=== PATIENT | female | born 1990 | race Caucasian/White ===

== ENCOUNTER → 2018-04-17 15:55 | Outpatient (CLI) | payer OTHER, SELFPAY ==
[2018-04-17 17:37] LABS: Hematocrit 36.4 % (37-47); Hemoglobin 11.5 g/dl (12.0-15.0); Mean Corp Hgb Conc 31.6 g/gl (32-36); Mean Corpuscular Hgb 28.7 pg (27.0-32.0); Mean Corpuscular Volume 90.8 fL (81-99); Mean Platelet Vol. 10.9 fl (6.2-12.0); Platelet Count 241 K/mm3 (150-450); RBC Distribution Width CV 13.3 % (11.6-14.6); RBC Distribution Width SD 43.6 fl (35.1-43.9); Red Blood Count 4.01 M/mm3 (4.2-5.4); White Blood Count 8.4 K/mm3 (4.4-11.0)
[2018-04-17 17:38] LABS: Scan Indicated on CBC? Y/N NO
[2018-04-17 17:39] LABS: Protein, Urine (Random) 6.9 mg/dL (<11.9)
[2018-04-17 17:41] LABS: ALB/GLOB Ratio 0.7 RATIO (0.9-2.4); AST(SGOT) 21 U/L (15-37); Alanine Aminotransfer ALT/SGPT 25 U/L (13-56); Albumin, Serum 3.1 g/dL (3.2-5.0); Alkaline Phosphatase 75 U/L (45-117); Anion Gap 8 (5-15); BUN 9 mg/dL (7-18); BUN/Creat Ratio 15.3 RATIO (10-20); Chloride 106 mmol/L (98-107); Creatinine, Serum 0.59 mg/dL (0.55-1.02); EST Glomerular Filtration Rate 128 mL/min (>60); Est Glom Filt Rate - Afr Amer 155 mL/min (>60); Globulin 4.4 g/dL (2.2-4.2); Glucose 89 mg/dL (74-106); Potassium 3.8 mmol/L (3.5-5.1); Protein, Total 7.5 g/dL (6.4-8.2); Sodium Level 140 mmol/L (136-145); Uric Acid 3.4 mg/dL (2.6-6.0)
== END ==
PROVIDERS: Visit Provider Obstetrics & Gynecology
DX: O16.2 Unspecified maternal hypertension, second trimester (principal); Z3A.00 Weeks of gestation of pregnancy not specified
CPT/HCPCS: 36415; 80053; 82570; 84156; 84550; 85027; 86850; 86900

== ENCOUNTER 2018-04-18 08:50 | Inpatient (IN) | payer OTHER, SELFPAY ==
[2018-04-18] MEDS: 0.9% Saline Lock 10 ML Syringe IV ×2 (09:42→20:05)
[2018-04-18 09:43] VITALS: BMI 26.4
[2018-04-18 09:57] VITALS: BMI 26.4
[2018-04-18] MEDS: miSOPROStol 200 MCG Tablet 400 MCG VAGINAL ×2 (10:15→22:36)
[2018-04-18] MEDS: miSOPROStol 100 MCG TABLET 400 MCG PO ×2 (14:25→18:33)
--- NOTE | 2018-04-18 17:44 | PCM.PN.BLA ---
Progress Note LABOR PROGRESS NOTE Has mild intermittent contractions. +brown to red discharge. No complaints. AVSS GEN - NAD, AAO x 3 TOCO - irritability A/P:27yo G1 @ 23 4/7wga with IUFD, hydrops with cystic hygroma -s/p cytotec x 2 - will continue -Pain management prn -Maternal status reassuring
[2018-04-18] MEDS: Acetaminophen 325 MG Tablet PO (18:38)
[2018-04-18] MEDS: Nalbuphine 10 MG/ML Ampul IV (20:05)
[2018-04-18] MEDS: Ondansetron 4 MG/2 ML Vial IV (20:06)
--- NOTE | 2018-04-19 | PLAC_PTH ---
PATIENT: SAVI SHELL LOC: [facility] U#:[id number] AGE/SX: 27/F ROOM: WP021 RE04/18/[address]: Dr. Kenzie Shukla MD : 1990 BED: 1 DIS: 04/19/2018 SPEC #: [id number] RECD: 04/19/18 11:10 STATUS: MIKE HUTCHINSJose #: [id number] LESA: 04/19/18 00:[address]: Kenzie Zamora DEPT: SURGICAL PATHOLOGY RECD BY: Hossein Sheppard ENTERED: 04/20/18 11:55 SP TYPE: PLACENTA OTHR DR: Dr. Chelsea Gutiérrez DO Tissues: Placenta, NOS Procedures: Surgery Specimen Level V HEADER OPERATION: Vaginal delivery PRE-OP DIAGNOSIS: 23 5/7wga, IUFD, , hydrops with cystic hygroma TISSUE SUBMITTED: Placenta MICROSCOPIC DIAGNOSIS Placenta: Placental disc ? immature placenta (143 gm). - A few of the villi with hydropic changes. - Focal area of infarction (1 cm in greatest dimension). Membranes ? mild acute chorioamnionitis. - Pigment-laden macrophages consistent with meconium staining. Umbilical cord - three blood vessels and no pathologic diagnosis. SJ:sheila 04/21/18 MICROSCOPIC DESCRIPTION Slides are reviewed. GROSS DESCRIPTION SPECIMEN: PLACENTA / CLINICAL INFORMATION: A. Weight: Not applicable B. Gestational Age: 23 weeks C. Sex: Male PLACENTAL WEIGHT (POST FIXATION): 143 gm PLACENTAL DIMENSIONS: 11 x 9 x 2 cm PLACENTAL SHAPE: Usual ovoid PLACENTAL WEIGHT FOR GESTATIONAL AGE: <10th percentile MEMBRANES - Present A. Insertion: Marginal B. Site of rupture from edge: At edge of placental disc C. Color of membrane: August-rojas D. Abnormalities: None UMBILICAL CORD - Present A. Color: August-rojas B. Insertion: Paracentral C. Length: 15 cm D. Diameter: 0.5 cm E. Number of vessels: Three F. Abnormalities: None A clamp is noted at the end of the umbilical cord. PLACENTAL DISC - Present A. Color of surface: August-rojas B. surface abnormalities: The surface shows a few submembranous blood clots. C. Maternal cotyledons: Intact with minimal tears D. Attached retro placental clot: No clot E. Cut surface: Applewood-red and spongy F. Lesions: Sections reveal a august, indurated area measuring 1 cm in greatest dimension. G. Separate clot: Absent SECTIONS SUBMITTED: 1. Membrane roll, umbilical cord, end is inked black 2. Body of the placenta, including and maternal surface, lesion. 3. Body of the placenta, including and maternal surface. 4. Body of the placenta, including and maternal surface SJ:rg 04/20/18 TC:2 CPT: 17859
--- NOTE | 2018-04-19 00:22 | PCM.PN.BLA ---
Progress Note LABOR PROGRESS NOTE Nausea resolved. Prefers to continue cytotec per vagina. Has mild cramping. AVSS GEN - NAD, AAO x 3 TOCO - irritability A/P:27 yo G1 @ 23 4/7wga, IUFD with hydrops and cystic hygroma -Will continue Cytotec -Maternal status reassuring
[2018-04-19] MEDS: Nalbuphine 10 MG/ML Ampul IV (01:14)
[2018-04-19] MEDS: 0.9% Saline Lock 10 ML Syringe IV (01:15)
[2018-04-19] MEDS: miSOPROStol 200 MCG Tablet 400 MCG VAGINAL ×2 (02:38→04:44)
[2018-04-19] MEDS: proMETHazine 25 MG/ML Syringe IV (03:16)
[2018-04-19] MEDS: Oxytocin 30 units/NS 500 ml 30 UNITS/500 ML IV.SOLN 334 UNITS IV (04:47)
--- NOTE | 2018-04-19 04:55 | PCM.OB.VAG ---
- Problem List (1) 23 weeks gestation of Status: Acute (2) demise > 22 weeks, delivered, current hospitalization Status: Acute Comment: hydrops with cystic hygroma Vaginal Delivery Maternal Presentation: Medically Indicated Induction Method of Induction: Cytotec Medical Reason for Induction: demise Amniotic Membrane Rupture Type: Spontaneous Rupture of Membrane time: 0326h Amniotic Fluid Description: Clear Final EUGENIA: 08/11/18 Gestational age: 23 Weeks and 5 Days Date of Procedure: 04/19/18 Pre-Operative Diagnosis: 23 5/7wga, IUFD, hydrops with cystic hygroma Post-Operative Diagnosis: 23 5/7wga, IUFD, hydrops with cystic hygroma Surgery/ Procedure Performed: Spontaneous Vaginal Delivery Type of Anesthesia: None Description of Procedure: Patient pushed to deliver fetus in breech presentation over and intact perineum. The cord was doubly clamped and cut and the was swaddled and held by patient. The placenta delivered spontaneously and appeared intact on inspection. An intravaginal exam retrieved few small clots. Cytotec 400mcg was placed rectally and pitocin IV started. Findings: Male with no movement or respiratory effort consistent with demise. The infant had generalized edema, but otherwise appeared normal in anatomy. Presentation: Footling Breech Placental Delivery Description: Spontaneous Placenta Disposition: [facility] Cord Vessel Description: 3 Vessels Cord Entanglement: None Estimated Blood Loss: 50 mL Infant A gender: Male (1 minute): 0 (5 minute): 0 Episiotomy Description: None Medications given after delivery: IV Pitocin, - - cytotec Complications: None
--- NOTE | 2018-04-19 05:13 | DCINST_ITS ---
Discharge Diet: No Restrictions Discharge Activity: Return to Normal Activity, May Shower May resume sexual activity in: 4-6 weeks Call your doctor if you observe: Fever of 101 or Higher, Inability to urinate, Inability to have a bowel movement, Using more than one pad per hour, Shortness of breath, Chest pain, Calf discomfort, Uncontrolled pain Additional Instructions: If you experience any of the following, contact your healthcare provider. * Bleeding that soaks a pad every hour for 2 hours * Fever 100.4 or higher * Unrelieved incision or abdominal pain * Swelling, redness, discharge or bleeding from your incision or episiotomy site * Your incision begins to separate * Problems urinating (including inability to urinate or burning while urinating) . * Visual changes * Severe headache * Flu-like symptoms * Pain or redness in one of both of your breasts * Pain, warmth, tenderness or swelling in your legs, especially the calf area * Frequent nausea and vomiting * Symptoms of depression or anxiety If you experience any of the following, call 911 or go to the nearest Emergency Room. * Chest pain * Problems breathing * Seizure activity * Partial or complete paralysis of a body part, slurred speech, weakness or drooping of the face, or a sudden inability to walk or hold your balance Allergies/Adverse Reactions: Allergies No Known Allergies Allergy (Verified 04/18/18 09:59) Medications to take at Discharge Vits [Prenatabs FA ] 1 tablet PO DAILY 04/18/18 Ibuprofen 600 mg PO TID PRN #30 tab 04/19/18 The following prescriptions were given: Ibuprofen 600 mg PO TID PRN #30 tab PRN Reason: Pain Please Follow Up With: Kenzie Villatoro MD When: 1-2 weeks Primary Care Physician: Chelsea Gutiérrez DO [Primary Care Provider] - Test Results: Test results from this visit will be discussed in further detail at your follow- up appointment, if applicable.
[2018-04-19] MEDS: Oxytocin 30 units/NS 500 ml 30 UNITS/500 ML IV.SOLN 167 UNITS IV (05:17)
[2018-04-19 08:00] VITALS: BP 102/56; PULSE 81; RESP 18; TEMP 36.8
[2018-04-19 11:30] VITALS: BP 120/55; PULSE 81; RESP 20; TEMP 36.4
[2018-04-22 10:26] LABS: Pathology Specimen OB SEE PATHOLOGY REPORT
== END 2018-04-19 12:00 | disposition home or self-care (01) | DRG 775 ==
LOC: WP 08:55
PROVIDERS: Admitting Provider Obstetrics & Gynecology; Family Provider Family Medicine; PCP Family Medicine; Visit Provider Obstetrics & Gynecology
DX: O36.4XX0 Maternal care for intrauterine death, not applicable or unspecified (principal); O35.8XX0 Maternal care for other (suspected) fetal abnormality and damage, not applicable or unspecified; D18.1 Lymphangioma, any site; O32.8XX0 Maternal care for other malpresentation of fetus, not applicable or unspecified; Z3A.23 23 weeks gestation of pregnancy; Z37.1 Single stillbirth
CPT/HCPCS: 59050; 86850; 86900; 88307; 99218; J7120; A4216; G0378; J2405

== ENCOUNTER → 2019-03-31 09:39 | Outpatient (CLI) | payer OTHER, SELFPAY ==
[2018-12-08 16:00] VITALS: BMI 26.2
[2019-03-31 10:05] LABS: Absolute Lymphocyte Count 1.16 X10^3/ul (0.83-4.51); Absolute Neutrophil Count 2.9 X10^3/uL (2.0-7.7); Basophil# 0.01 X10^3/uL; Basophil% 0.2 % (0-1); Eosinophil# 0.03 X10^3/uL; Eosinophils% 0.7 % (0-5); Hematocrit 36.8 % (37-47); Hemoglobin 11.4 g/dl (12.0-15.0); Lymphocyte # 1.16 X10^3/ul (4.0); Lymphocyte % 26.7 % (19-41); Mean Corpuscular Hgb 25.2 pg (27.0-32.0); Mean Corpuscular Volume 81.4 fL (81-99); Mean Platelet Vol. 10.9 fl (6.2-12.0); Monocyte# 0.27 X10^3/uL; Monocyte% 6.2 % (0-10); Neutrophil # 2.88 X10^3/uL (2.7-7.7); Neutrophil % 66.2 % (47-70); Platelet Count 224 K/mm3 (150-450); RBC Distribution Width CV 14.8 % (11.6-14.6); RBC Distribution Width SD 43.8 fl (35.1-43.9); Red Blood Count 4.52 M/mm3 (4.2-5.4); White Blood Count 4.4 K/mm3 (4.4-11.0)
[2019-03-31 10:09] LABS: POSITIVE COUNT NO; POSITIVE DIFFERENTIAL NO; POSITIVE MORPHOLOGY NO
[2019-03-31 10:26] LABS: AST(SGOT) 14 U/L (15-37); Alanine Aminotransfer ALT/SGPT 22 U/L (13-56); Albumin, Serum 3.8 g/dL (3.2-5.0); Alkaline Phosphatase 77 U/L (45-117); Anion Gap 5 (5-15); BUN 10 mg/dL (7-18); BUN/Creat Ratio 13.6 RATIO (10-20); Calcium,Total 9.1 mg/dL (8.5-10.1); Chloride 105 mmol/L (98-107); Creatinine, Serum 0.74 mg/dL (0.55-1.02); EST Glomerular Filtration Rate 98 mL/min (>60); Est Glom Filt Rate - Afr Amer 119 mL/min (>60); Globulin 3.8 g/dL (2.2-4.2); Glucose 94 mg/dL (74-106); Lipase 96 U/L (73-393); Potassium 3.7 mmol/L (3.5-5.1); Protein, Total 7.6 g/dL (6.4-8.2); Sodium Level 139 mmol/L (136-145)
== END ==
PROVIDERS: Family Provider Family Medicine; PCP Family Medicine; Visit Provider Family Medicine
DX: R10.9 Unspecified abdominal pain (principal); R19.7 Diarrhea, unspecified
CPT/HCPCS: 36415; 80053; 83690; 85025

== ENCOUNTER → 2019-04-02 11:05 | Outpatient (CLI) | payer OTHER, SELFPAY ==
[2018-12-08 16:00] VITALS: BMI 26.2
--- NOTE | 2019-04-02 11:07 | CT_ITS ---
STUDY: CT ABDOMEN AND PELVIS WITH CONTRAST REASON FOR EXAM: Female, 28 years old. Abdominal pain with bloating and diarrhea. RADIATION DOSAGE (If Supplied By Facility): CTDIvol = ( 8.72 ) mGy, DLP = ( 539.83 ) mGycm TECHNIQUE: Transaxial images were obtained from the dome of the diaphragm to the symphysis pubis with oral contrast. 100 IV/Oral Isovue 300 was administered. Sagittal and coronal images were reconstructed. Individualized dose optimization techniques were used for this CT. COMPARISON: None. FINDINGS: The visualized lung bases are unremarkable. The visualized portions of the heart are within normal limits. Normal liver. Normal gallbladder and extrahepatic biliary system. Normal spleen. Normal pancreas. Normal bilateral adrenal glands. Normal right kidney. Normal left kidney. Normal visualized stomach. Normal small intestine. There is evidence of colitis involving the distal transverse colon as well as the splenic flexure down to the mid descending colon. The appendix is visualized and appears normal. Normal abdominal aorta. Normal inferior vena cava. Normal retroperitoneum. Normal urinary bladder. Thickened endometrium measuring 2 cm. Normal abdominal wall. Normal osseous structures. CT/Abdomen/Pelvis WITH Contrast IMPRESSION: Findings suggestive of colitis involving the distal transverse colon, splenic flexure and mid descending colon. Electronically Signed: Tde Bloom, at 12:16 EDT , Service support ,
== END ==
PROVIDERS: Family Provider Family Medicine; PCP Family Medicine; Referring Provider Family Medicine; Visit Provider Family Medicine
DX: R19.7 Diarrhea, unspecified (principal); R10.9 Unspecified abdominal pain; R14.0 Abdominal distension (gaseous)
CPT/HCPCS: 74177; Q9967

== ENCOUNTER → 2019-04-05 07:59 | Outpatient (CLI) | payer OTHER, SELFPAY ==
[2018-12-08 16:00] VITALS: BMI 26.2
--- NOTE | 2019-04-05 08:05 | US_ITS ---
STUDY: ULTRASOUND OF THE FEMALE PELVIS - COMPLETE REASON FOR EXAM: Female, 28 years old. Thickened endometrial echoes on CT scan. LMP: 03/10/2019 TECHNIQUE: Transabdominal and Transvaginal TECHNICAL QUALITY: Adequate. COMPARISON: Scan 04/02/2019. FINDINGS: The uterus is anteverted and is in a midline position. The uterus measures 7.5 x 5.2 x 4.3 cm. Normal uterine cervix. The endometrium measures 16 mm in thickness, and is hyperechoic. There is no demonstrated endometrial mass. There is no demonstrated myometrial mass. I.U.D. - The patient does not have an I.U.D. The right ovary is visualized. The right ovary measures 2.4 x 2.2 x 2.0 cm. There is no right ovarian cyst or ovarian mass. There is no visualized right adnexal mass or complex lesion. There is normal arterial and normal venous vascularity. The left ovary is visualized. The left ovary measures 3.6 x 3.6 x 2.8 cm. There is a 1.7 cm cyst. There is no visualized left adnexal mass or complex lesion. There is normal arterial and normal venous vascularity. There is trace fluid in the cul-de-sac. The pre void volume of the bladder was 281 ml. US/Pelvic (Non ) IMPRESSION: Endometrial echoes are slightly thickened but otherwise normal and homogeneous. Recommend follow-up in one or 2 menstrual periods. No other significant finding. Electronically Signed: Aron Gilbert MD at 16:54 EDT , Service support ,
--- NOTE | 2019-04-05 08:05 | US_ITS ---
STUDY: ULTRASOUND OF THE FEMALE PELVIS - COMPLETE REASON FOR EXAM: Female, 28 years old. Thickened endometrial echoes on CT scan. LMP: 03/10/2019 TECHNIQUE: Transabdominal and Transvaginal TECHNICAL QUALITY: Adequate. COMPARISON: Scan 04/02/2019. FINDINGS: The uterus is anteverted and is in a midline position. The uterus measures 7.5 x 5.2 x 4.3 cm. Normal uterine cervix. The endometrium measures 16 mm in thickness, and is hyperechoic. There is no demonstrated endometrial mass. There is no demonstrated myometrial mass. I.U.D. - The patient does not have an I.U.D. The right ovary is visualized. The right ovary measures 2.4 x 2.2 x 2.0 cm. There is no right ovarian cyst or ovarian mass. There is no visualized right adnexal mass or complex lesion. There is normal arterial and normal venous vascularity. The left ovary is visualized. The left ovary measures 3.6 x 3.6 x 2.8 cm. There is a 1.7 cm cyst. There is no visualized left adnexal mass or complex lesion. There is normal arterial and normal venous vascularity. There is trace fluid in the cul-de-sac. The pre void volume of the bladder was 281 ml. US/Transvaginal Non- IMPRESSION: Endometrial echoes are slightly thickened but otherwise normal and homogeneous. Recommend follow-up in one or 2 menstrual periods. No other significant finding. Electronically Signed: Aron Gilbert MD at 16:54 EDT , Service support ,
== END ==
PROVIDERS: Family Provider Family Medicine; PCP Family Medicine; Referring Provider Family Medicine; Visit Provider Family Medicine
DX: R10.2 Pelvic and perineal pain (principal); N92.3 Ovulation bleeding
CPT/HCPCS: 76830; 76856

== ENCOUNTER → 2019-04-16 08:02 | Outpatient (CLI) | payer OTHER, SELFPAY ==
[2018-12-08 16:00] VITALS: BMI 26.2
== END ==
PROVIDERS: Family Provider Family Medicine; PCP Family Medicine; Visit Provider Family Medicine
DX: R19.7 Diarrhea, unspecified (principal)
CPT/HCPCS: 83630; 87177; 87209; 87493; 87506

== ENCOUNTER 2019-04-26 09:42 | Day surgery (SDC) | payer OTHER, SELFPAY ==
[2019-04-22 09:52] VITALS: BMI 26.2
[2019-04-26] VITALS (7 sets, daily range): BP systolic 85–106; BP diastolic 38–59; PULSE 68–92; RESP 14–16; TEMP 36.3–37.4; O2SAT 99–100; BMI 25.1
--- NOTE | 2019-04-26 | COLBX_PTH ---
PATIENT: SAVI SHELL LOC: EN U#:[id number] AGE/SX: 28/F ROOM: RE04/26/[address]: Dr. Laly Newton MD : 1990 BED: DIS: 04/26/2019 SPEC #: [id number] RECD: 04/26/19 13:31 STATUS: MIKE SHIRA #: [id number] LESA: 04/26/19 00:[address]: Laly Newton DEPT: SURGICAL PATHOLOGY RECD BY: Temo Shipman ENTERED: 04/26/19 13:32 SP TYPE: COLON BX IRINA DR: DO Chelsea Christine Tissues: A - Ileum, NOS B - Transverse colon C - Descending colon D - Rectum, NOS Procedures: Surgery Specimen Level IV HEADER OPERATION: Colonoscopy (MAC) PRE-OP DIAGNOSIS: Abdomen pressure, Abnormal CT scan TISSUE SUBMITTED: A - Terminal ileum biopsy, B - Transverse random biopsy, C - Proximal descending random biopsy, D - Rectum small ulceration biopsy MICROSCOPIC DIAGNOSIS A. Terminal ileum, biopsy: No pathologic diagnosis. B. Transverse colon, biopsy: No pathologic diagnosis. C. Proximal descending colon, biopsy: No pathologic diagnosis. D. Rectal ulcer, biopsy: Recent mucosal hemorrhage. No evidence of colitis. AM:janis 04/27/19 MICROSCOPIC DESCRIPTION Slides are reviewed. GROSS DESCRIPTION A - Received in fixative is one container labeled with the patient's name and designated terminal ileum biopsy. The specimen consists of one irregular fragment of light august soft tissue that measures 0.3 x 0.3 x 0.1 cm. The specimen is totally submitted in one cassette. B - Received in fixative is one container labeled with the patient's name and designated transverse random biopsy. The specimen consists of one irregular fragment of light august soft tissue that measures 0.3 x 0.3 x 0.1 cm. The specimen is totally submitted in one cassette. C - Received in fixative is one container labeled with the patient's name and designated proximal descending random biopsy. The specimen consists of one irregular fragment of light august soft tissue that measures 0.3 x 0.2 x 0.1 cm. The specimen is totally submitted in one cassette. D - Received in fixative is one container labeled with the patient's name and designated rectum small ulceration biopsy. The specimen consists of one irregular fragment of light august soft tissue that measures 0.7 x 0.3 x 0.1 cm. The specimen is totally submitted in one cassette. / SJ:sheila 04/26/19 TC: 5 CPT: 01197 x4
--- NOTE | 2019-04-26 10:18 | HP.PCM_ITS ---
History and Physical Date of Admission: 04/26/19 Intake Vital Signs 04/22/19 Body Mass Index (BMI) 26.2 04/22/19 Height 5 ft 4 in 04/22/19 Weight: 150 lb 04/22/19 Body Mass Index (BMI) 25.7 04/22/19 Blood Pressure 121/70 H 04/22/19 Blood Pressure Location Lt brachial 04/22/19 Respiratory Rate 16 Intake Visit Reasons: C-Scope Diarrhea Chief Complaint: HEADACHE, EARACHE Transport Coordinator Required: No Is patient in pain?: No Allergies No Known Allergies Allergy (Verified 04/23/19 11:25) Medications NK 04/22/19 [History Confirmed 04/23/19] [facility] Medical History TMJ dysfunction (Acute) Tension type headache (Acute) (spontaneous vaginal delivery) (Acute) 23 weeks gestation of (Acute) demise > 22 weeks, delivered, current hospitalization (Acute) Surgical History History of hip surgery (Acute) Hx of tonsillectomy (Acute) Family History Other MVP (mitral valve prolapse) Melanoma Myopathy Social History (Updated 04/23/19 @ 11:52 by Laly Newton MD) Smoking Status: Never smoker alcohol intake: never HPI HPI HPI: SAVI SHELL, is a 28 F who presents to the office today for HPI HPI Surgical H&P: Yes HPI: SAVI SHELL, is a 28 F who presents to the office today for multiple soft bowel movements, abdominal pain/pressure. Patient states that around 29 March she started having abdominal pain/pressure denies any sick contacts or any recent travel. She was having increased number of soft bowel movements denies any watery diarrhea. Patient did her see her PCP who gave her Cipro Flagyl for 10 days. Patient states she did not notice a difference with this. Patient also underwent a CAT scan abdomen pelvis prior to getting the antibiotics which should question colitis of the distal transverse colon/splenic flexure/proximal ascending colon. Patient states that the pressure is improved this week currently she rates pain/pressure a 2/10 prior it was always a 4/10 can go up to an 8/10. Patient still admits to about 7 soft bowel movements daily. Denies any history of any similar episodes previously. Patient denies having history of colonoscopies, denies family history of colon cancer or UC or Crohn's disease. Patient also had stool studies including fecal leukoesterase, enteric pathogens, C. difficile which were all negative ROS General General: Yes fatigue; no weight change Gastro Gastrointestinal: Yes abdominal pain, Yes nausea or vomiting (no vomiting), No diarrhea (pt has multiple stools but soft no watery), No constipation, No blood in stool, Yes acid reflux, Yes hemorrhoids, No ulcers, No gallbladder problem, No black,tarry stools Exam Const General: cooperative, comfortable, no acute distress Resp Effort & Inspection: normal respiratory effort Cardio Rate: regular rate GI Inspection: non-distended, no incisions Palpation: soft, no guarding, tender (Mild epigastric left upper quadrant, no peritoneal signs) Assessment & Plan Problems 1. Abnormal CT scan, colon R93.3 2. Abdominal pressure R10.9 Plan I have discussed the above with the patient. I have offered the patient colonoscopy for evaluation. We will also plan to do random biopsies of the distal transverse and proximal descending colon. I have explained the risks/benefits of the procedure and described the procedure. I have discussed the risks with the patient, including but not limited to: infection, bleeding, perforation of the GI tract requiring emergency surgery, inability to complete the procedure, injury to any internal organs, complications of anesthesia, etc. - the patient understands and agrees to proceed. I have answered all the patient's questions to the patient's satisfaction and the patient has no further questions. The patient has been given instructions for the colon cleansing preparation. 1 day of clears, MiraLAX Dulcolax split prep Laly Newton M.D. Pager: [phone] [facility] [address] [place] [address], [facility], [address] [place] [address] Office: [phone] Orders Orders: Colonoscopy 04/22/19 R10.9, R93.3 Plan Detail Follow Up We will schedule colonoscopy Coding Level of Care Code Off vis,new,level [address] scan, colon R93.3 Abdominal pressure R10.9 07/26/19 1153 <Electronically signed by Laly Porras am, MD> Date _ Laly Newton MD
--- NOTE | 2019-04-26 11:04 | OP.ENDO_ITS ---
04/26/2019 Chelsea Gutiérrez Re : Colonoscopy procedure for Dorothy Negronr Brock This procedure was performed on Friday, April 26, 2019. My impressions and recommendations are as follows: Impressions : - Mucosal ulceration. Biopsied. - Biopsies were taken with a cold forceps for histology in the proximal descending colon and in the transverse colon. - Biopsies were taken with a cold forceps for histology in the terminal ileum. Recommendations : - Discharge patient to home. - Resume previous diet. - Continue present medications. - Repeat colonoscopy at age 48 for screening purposes. - Await pathology results. My findings are described in the full procedure note, which is enclosed. If I can be of further assistance, please feel free to contact me at Doctor phone number(s): , Work: . Sincerely, MD Laly Knapp MD 04/26/2019 11:04:27 AM This report has been signed electronically.
[2019-04-26 14:37] LABS: Internal QC Validated? YES +Cl - CLEAR BKGD; Pregnancy, Urine Positive Negative
== END 2019-04-26 12:25 | disposition home or self-care (01) ==
LOC: EN 09:43 → AC 09:43
PROVIDERS: Anesthesiology; Family Provider Family Medicine; PCP Family Medicine; Referring Provider Family Medicine; Visit Provider Surgery
PROC: 0DJD8ZZ Inspection of Lower Intestinal Tract, Via Natural or Artificial Opening Endoscopic (ICD-10-PCS; CPT 45378; principal; 2019-04-26 10:40)
DX: K63.3 Ulcer of intestine (principal); R10.13 Epigastric pain; R19.7 Diarrhea, unspecified; R11.0 Nausea; R93.3 Abnormal findings on diagnostic imaging of other parts of digestive tract
CPT/HCPCS: 45380; 81025; 88305; J7120

== ENCOUNTER → 2019-04-27 08:51 | Outpatient (CLI) | payer OTHER, SELFPAY ==
[2019-04-26 10:02] VITALS: BMI 25.1
[2019-04-27 12:07] LABS: hCG Titer Quant., Serum 88 mIU/mL (1-3)
== END ==
PROVIDERS: Visit Provider Obstetrics & Gynecology
DX: N91.2 Amenorrhea, unspecified (principal)
CPT/HCPCS: 36415; 84702

== ENCOUNTER → 2019-04-29 08:36 | Outpatient (CLI) | payer OTHER, SELFPAY ==
[2019-04-26 10:02] VITALS: BMI 25.1
[2019-04-29 09:14] LABS: hCG Titer Quant., Serum 100 mIU/mL (1-3)
== END ==
PROVIDERS: Visit Provider Obstetrics & Gynecology
DX: N91.2 Amenorrhea, unspecified (principal)
CPT/HCPCS: 36415; 84702

== ENCOUNTER → 2019-04-29 16:26 | Outpatient (CLI) | payer OTHER, SELFPAY ==
[2019-04-26 10:02] VITALS: BMI 25.1
[2019-05-01 09:46] LABS: hCG Titer Quant., Serum 101 mIU/mL (1-3)
== END ==
PROVIDERS: Family Provider Family Medicine; PCP Family Medicine; Referring Provider Obstetrics & Gynecology; Visit Provider Obstetrics & Gynecology
DX: Z34.80 Encounter for supervision of other normal pregnancy, unspecified trimester (principal)
CPT/HCPCS: 36415; 84144; 84702

== ENCOUNTER → 2019-05-07 11:25 | Outpatient (CLI) | payer OTHER, SELFPAY ==
[2019-04-26 10:02] VITALS: BMI 25.1
[2019-05-07 12:43] LABS: hCG Titer Quant., Serum 2 mIU/mL (1-3)
== END ==
PROVIDERS: Family Provider Family Medicine; PCP Family Medicine; Visit Provider Obstetrics & Gynecology
DX: N91.2 Amenorrhea, unspecified (principal)
CPT/HCPCS: 36415; 84702

== ENCOUNTER → 2019-05-28 10:56 | Outpatient (CLI) | payer OTHER, SELFPAY ==
[2018-12-08 16:00] VITALS: BMI 26.2
[2019-04-26 10:02] VITALS: BMI 25.1
[2019-05-28 12:44] LABS: Erythrocyte Sedimentation Rate 17 mm/hr (0-20)
[2019-05-28 13:37] LABS: CRP 3.22 mg/L (0.0-3.0); Thyroid Stim Hormone (TSH) 1.11 uIU/mL (0.358-3.74)
[2019-06-02 20:08] LABS: Cytoplasmic Ab (C-ANCA) <1:20 titer (Neg:<1:20); Endomysial Antibody IgA Negative (Negative); Immunoglobulin A 266 mg/dL (87-352)
[2019-06-03 13:11] LABS: Perinuclear Ab (P-ANCA) <1:20 titer (Neg:<1:20); t-Transglutaminase IgA <2 U/mL (0-3)
== END ==
PROVIDERS: Family Provider Family Medicine; PCP Family Medicine; Visit Provider Family Medicine
DX: R19.7 Diarrhea, unspecified (principal); R10.9 Unspecified abdominal pain
CPT/HCPCS: 36415; 82784; 83516; 84443; 85652; 86140; 86255; 86256

== ENCOUNTER → 2020-03-06 | Outpatient (CLI) | payer OTHER, SELFPAY ==
[2019-04-26 10:02] VITALS: BMI 25.1
--- NOTE | 2020-03-06 08:02 | US_ITS ---
STUDY: SECOND AND THIRD TRIMESTER OBSTETRICAL ULTRASOUND - LIMITED REASON FOR EXAM: Female, 29 years old uterine size discrepancy LMP: September 08, 2019. PRIOR ULTRASOUND: None. TECHNIQUE: Transabdominal TECHNICAL QUALITY: Adequate. FINDINGS: There is a single intrauterine fetus. The fetus is in a cephalic presentation. There is demonstrated cardiac activity with a heart rate of 143 bpm. There is a normal amniotic fluid volume. The largest amniotic fluid pocket measures 6 cm x 3.7 cm. The amniotic fluid index (PJ) is within normal limits. The placenta is anterior in location and is not low lying. There are Grade 0 placental changes. The cervix measures 4.0 cm in length. BIOMETRY: BPD: 6.42 cm: 25 weeks, 6 days HC: 24.83 cm: 27 weeks, 6 days AC: 22.02 cm: 26 weeks, 3 days FL: 4.98 cm: 26 weeks, 5 days Age by LMP: 25 weeks, 5 days. EUGENIA by LMP: June 14, 2020. age by current US: 26 weeks, 2 days. EUGENIA by current US: June 10, 2020. Estimated weight: 958 grams, +/- 142 grams, 76 percentile. US/OB Limited With Biometrics IMPRESSION: Single live intrauterine gestation with a mean gestational age of 26 weeks and 2 days. Electronically Signed: Ted Bloom, at 12:42 EDT , Service support ,
== END | disposition home or self-care (01) ==
PROVIDERS: PCP Family Medicine; Visit Provider Obstetrics & Gynecology
DX: O26.842 Uterine size-date discrepancy, second trimester (principal); Z3A.00 Weeks of gestation of pregnancy not specified
CPT/HCPCS: 76816

== ENCOUNTER 2020-06-08 07:00 | Inpatient (IN) | payer OTHER, SELFPAY ==
[2019-04-26 10:02] VITALS: BMI 25.1
[2020-06-08] VITALS (49 sets, daily range): BP systolic 85–135; BP diastolic 44–82; PULSE 62–115; TEMP 36.5–37.8; O2SAT 91–100; BMI 30.1
--- NOTE | 2020-06-08 07:35 | HP.PCM_ITS ---
- Problem List (1) 39 weeks gestation of Status: Acute History Date of Admission: 06/08/20 Final EUGENIA: 06/14/20 Final EUGENIA Source: US <20 weeks Gestational age: 39 Weeks and 1 Days History of this : This is a 29 year-old, G [2], P [0100], at 39 1/7 weeks gestational age presenting for scheduled induction of labor. Prior hx of stillbirth with at 24wga. Medical History: Medical History (Last Reviewed 06/08/20 @ 12:[address] Kenzie Shukla MD) TMJ dysfunction (Acute) M26.609 Tension type headache (Acute) G44.209 (spontaneous vaginal delivery) (Acute) O80 23 weeks gestation of (Acute) Z3A.23 demise > 22 weeks, delivered, current hospitalization (Acute) O36.4XX0 hydrops with cystic hygroma Surgical History: Surgical History (Last Reviewed 06/08/20 @ 12:[address] Kenzie Shukla MD) History of hip surgery Z98.890 x 2 Hx of tonsillectomy Z90.89 Allergies No Known Allergies Allergy (Verified 06/08/20 07:29) Home Medications: Home Medications Cholecalciferol (VIT D3) [Vitamin D] 4,000 unit PO DAILY 06/08/20 Docusate Sodium [Colace] 100 mg PO BID 06/08/20 Ferrous Sulfate [Iron] 325 mg PO BID 06/08/20 Vit No.130/Iron/Folic [ Tablet] 1 ea PO DAILY 06/08/20 Smoking Status: Never smoker Alcohol: None Number of Fetus(es): 1 NST - FHR Rate Baby A Baseline: 150 Variability:: Moderate Accelerations:: 15 x 15 Decelerations:: None NST Reactive:: Yes FHR Category:: Category I Uterine Activity:: 1-2/10 min History Past Pregnancies: Past Pregnancies Delivery Date Name GA/ Weeks Outcome Route Wt Infant Sex Labor Length Anesthesia Delivery Location Provider FOB 04/19/2018 Derek 23 hydrops, Cystic hygroma, IUFD, IOL M Epidural [facility] Jorje Conklin Labs: Mom's Problem List Problem Status Onset Code 39 weeks gestation of Acute Z3A.39 Mom's Labs & Results 06/08/20 06/08/20 07:40 07:40 WBC 6.0 RBC 3.91 L Hgb 11.9 L Hct 36.5 L MCV 93.4 MCH 30.4 MCHC 32.6 RDW Std Deviation 43.9 RDW Coeff of Laury 13.0 Plt Count 171 MPV 11.2 Immature Gran % (Auto) 0.500 Neut % (Auto) 76.9 H Lymph % (Auto) 17.1 L [place] % (Auto) 5.0 Eos % (Auto) 0.2 Baso % (Auto) 0.3 Absolute Neuts (auto) 4.7 Absolute Lymphs (auto) 1.03 Nucleated RBC % 0 Blood Type A POSITIVE Antibody Screen NEGATIVE Course Did the patient receive Yes care? Labs Blood Type: A RH: POSITIVE RPR/VDRL/Syphilis Nonreactive Rubella status Immune HbSAg Negative Date Done: 12/07/19 Chlamydia Negative Gonorrhea Negative HIV/AIDS Non-Reactive Group B Strep: Positive Current Obstetrical History Gestational Diabetes No Incompetent Cervix No Infertility No IUGR No Macrosomia No Hypertension/Pre-eclampsia No Placenta Previa/Abruption No PTL/PROM No Uterine anomaly No Oligohydramnios No Polyhydramnios No Multiple gestation No Past Medical History Asthma No Diabetes No Hypertension No Heart disease Yes: MVP Mitral valve prolapse Yes Neurologic/Seizure disorder/ No Migraines Kidney disease No Liver disease No Varicosities No Clotting disorders/Hx of DVT No Thyroid Dysfunction No Other medical diseases No Psychiatric disorders No Major trauma No Abnormal PAP smear No Sleep apnea No Mammogram in the last 2 years No Medications Taken During Dose/Freq.: [tums] 2 tabs Social History Marital Status: Alleged father Rubin Hx Smoking No Smoking Status Never smoker How long have you used na substances (years)? Expected Infant Delivery Method: Spontaneous Vaginal Describe any other labor & delivery plans:: pitocin, PCN for GBS positive Number of Visits: 12 Physical Exam Vitals: AVSS General: Alert, Oriented x3, Cooperative, No apparent distress HEENT: Atraumatic, Normocephalic Cardiovascular: Regular rate, Regular Rhythm, Normal S1, Normal S2 Lungs: Clear to auscultation, Normal air movement Abdomen: Soft, Non Tender, Non-Distended, Gravid Extremities:: Other - +3 b/l pitting edema Neurological: Neuro grossly intact CORPORATE RESPONSIBILITY OFFICER: Normal external genitalia Estimated gestational size: Appropriate for gestational size Presentation: Cephalic Cervix Dilation (cm): 4 Station: -3 Effacement (%): 60 Assessment/Plan All Active Problems (Last Reviewed 06/08/20 @ 12:[address] Kenzie Shukla MD) 39 weeks gestation of (Acute) TMJ dysfunction (Acute) Tension type headache (Acute) (spontaneous vaginal delivery) (Acute) 23 weeks gestation of (Acute) demise > 22 weeks, delivered, current hospitalization (Acute) This is a 29 year-old, G [2], P [0100], at 39 1/7 weeks gestational age. PCN for GBS Pitocin induction
[2020-06-08] MEDS: Lactated Ringers 1,000 ML 50 ML IV (07:40)
[2020-06-08 08:01] LABS: Absolute Lymphocyte Count 1.03 X10^3/uL (0.83-4.51); Absolute Neutrophil Count 4.7 X10^3/uL (2.0-7.7); Basophil# 0.02 X10^3/uL; Basophil% 0.3 % (0-1); Eosinophil# 0.01 X10^3/uL; Eosinophils% 0.2 % (0-5); Hematocrit 36.5 % (37-47); Hemoglobin 11.9 g/dL (12.0-15.0); Lymphocyte # 1.03 X10^3/ul (4.0); Lymphocyte % 17.1 % (19-41); Mean Corp Hgb Conc 32.6 g/dL (32-36); Mean Corpuscular Hgb 30.4 pg (27.0-32.0); Mean Corpuscular Volume 93.4 fL (81-99); Mean Platelet Vol. 11.2 fl (6.2-12.0); NRBC Flagged by Analyzer 0 % (0-5); Neutrophil # 4.65 X10^3/uL (2.7-7.7); Neutrophil % 76.9 % (47-70); Platelet Count 171 K/mm3 (150-450); RBC Distribution Width SD 43.9 fl (35.1-43.9); Red Blood Count 3.91 M/mm3 (4.2-5.4)
[2020-06-08] MEDS: Oxytocin 30 units/NS 500 ml 30 UNITS/500 ML IV.SOLN IV (08:05)
--- NOTE | 2020-06-08 11:36 | PCM.PN.BLA ---
Progress Note LABOR PROGRESS NOTE Increasing contractions. AVSS GEN - NAd, AAO x 3 FHR 150, moderate variability, + accelerations, few variable decelerations TOCO irritability SVE 5/60/-2, moderate and midposition A/P: 29yo @ 39 1/7wga, IOL on pitocin, Cat II -Amniotomy performed with clear fluid -Maternal and statuses reassuring -Continue pitocin as tolerated by mother and fetus STROKE Vital Signs/Narrative: Vital Signs Temp Pulse BP Pulse Ox 06/08/20 11:23 98.2 F 06/08/20 11:22 82 135/77 H 06/08/20 10:28 65 99 06/08/20 10:27 98.4 F 128/70 H 06/08/20 09:25 98.6 F 72 116/74 06/08/20 08:31 115 H 112/82 H 06/08/20 07:43 99.2 F H 85 110/79 98 06/08/20 07:42 99.1 F
[2020-06-08] MEDS: Lactated Ringers 500 ML 999 ML IV ×2 (13:33→22:29)
[2020-06-08] MEDS: fentaNYL-bupivacaine (epidural) 100 ML BAG EPIDURAL ×3 (14:17→23:56)
[2020-06-08] MEDS: Lactated Ringers 1,000 ML 200 ML IV ×2 (18:23→23:49)
--- NOTE | 2020-06-08 18:30 | PCM.PN.BLA ---
Progress Note LABOR PROGRESS NOTE Comfortable with epidural. No complaints. GEN - AAO x 3, well appearing FHR 140, moderate variability, + accelerations, + variable deceleration TOCO 4/10 min SVE 7.5/75/-2 A/P: 29yo @ 39 1/7wga in active labor, Cat I-II FHR on pitocin -Maternal and statuses reassuring -Continue pitocin as tolerated by mother and fetus STROKE Vital Signs/Narrative: Vital Signs Temp Pulse BP Pulse Ox 06/08/20 17:42 98.4 F 06/08/20 17:41 89 116/57 L 96 06/08/20 17:02 98.2 F 69 99/44 L 06/08/20 17:01 70 101/44 L 06/08/20 17:00 98.2 F 06/08/20 16:18 98.8 F 06/08/20 16:17 67 123/54 H 99 06/08/20 15:19 73 114/63 06/08/20 14:40 72 100 06/08/20 14:38 71 114/56 L 06/08/20 14:35 74 100 06/08/20 14:33 74 113/55 L
[2020-06-08] MEDS: 0.9% Saline Lock 10 ML Syringe IV (20:03)
[2020-06-08] MEDS: Ondansetron 4 MG/2 ML Vial IV (20:03)
[2020-06-09] VITALS (41 sets, daily range): BP systolic 78–122; BP diastolic 48–82; PULSE 65–106; RESP 16–18; TEMP 36.2–38.7; O2SAT 90–100
--- NOTE | 2020-06-09 | PLAC_PTH ---
PATIENT: SAVI SHELL LOC: WP U#:[id number] AGE/SX: 29/F ROOM: WP006 RE06/08/[address]: Dr. Kenzie Shukla MD : 1990 BED: 1 DIS: 06/11/2020 SPEC #: [id number] RECD: 06/09/20 14:38 STATUS: MIKE REQ #: [id number] LESA: 06/09/20 00:[address]: Kenzie Zamora DEPT: SURGICAL PATHOLOGY RECD BY: Temo Shipman ENTERED: 06/12/20 08:18 SP TYPE: PLACENTA OTHR DR: Dr. Chelsea Gutiérrez, DO Tissues: Placenta, NOS Procedures: Surgery Specimen Level V HEADER OPERATION: Primary section PRE-OP DIAGNOSIS: 39 2/7wga, suspected triple I TISSUE SUBMITTED: Placenta MICROSCOPIC DIAGNOSIS Kessler placenta (545 gm): Umbilical cord - trivascular with no inflammation. Placental membranes - acute chorioamnonitis and acute deciduitis. Placental disc - Zoe-Perry change and intervillous congestion. AM:sheila 06/13/20 MICROSCOPIC DESCRIPTION Slides are reviewed. GROSS DESCRIPTION SPECIMEN: PLACENTA / CLINICAL INFORMATION: A. Weight: 3.225 kg B. Gestational Age: 39 weeks C. Sex: Female PLACENTAL WEIGHT (POST FIXATION): 545 gm PLACENTAL DIMENSIONS: 16 x 15 x 3.5 cm PLACENTAL SHAPE: Usual ovoid PLACENTAL WEIGHT FOR GESTATIONAL AGE: Within 10-99th percentile MEMBRANES - Present A. Insertion: Marginal B. Site of rupture from edge: At edge of placental disc C. Color of membrane: Mahan-rojas D. Abnormalities: None UMBILICAL CORD - Present A. Color: Maahn-rojas B. Insertion: Marginal C. Length: 27 cm D. Diameter: 1.4 cm E. Number of vessels: Three F. Abnormalities: None PLACENTAL DISC - Present A. Color of surface: Mahan-rojas B. surface abnormalities: None C. Maternal cotyledons: Intact with minimal tears D. Attached retro placental clot: No clot E. Cut surface: Dark red and spongy F. Lesions: None G. Separate clot: Absent SECTIONS SUBMITTED: 1. Membrane roll 2. Cord, maternal end 3. Cord, end 4. Placental disc, and maternal surfaces 5. Placental disc, and maternal surfaces 6. Placental disc, and maternal surfaces SJ:sheila 06/12/20 TC:2 CPT: 22935
[2020-06-09] MEDS: Ondansetron 4 MG/2 ML Vial IV ×2 (02:08→18:38)
[2020-06-09] MEDS: Acetaminophen 500 MG Tablet 1000 MG PO ×2 (02:09→18:30)
[2020-06-09] MEDS: fentaNYL-bupivacaine (epidural) 100 ML BAG EPIDURAL ×2 (04:53→09:00)
[2020-06-09] MEDS: Lactated Ringers 1,000 ML 200 ML IV (05:57)
--- NOTE | 2020-06-09 07:12 | PN.OBGYN_ITS ---
Patient Problems: Active and Suspected Problems (Last Updated 06/08/20 @ 18:[address] Kenzie Shukla MD) 39 weeks gestation of (Acute) Subjective: heart rate tracing review and pt evaluation Objective: Pt comfortable with epidural - Physical Exam Vitals/I&O's: Vital Signs Temp Pulse BP Pulse Ox 98.4 F 77 102/51 L 100 06/09/20 06:57 06/09/20 06:57 06/09/20 06:57 06/09/20 05:53 Weight: 175 lb 11.335 oz Body Mass Index (BMI) 30.1 Intake and Output for Last 24 Hours 06/07/20 06/08/20 06/09/20 23:59 23:59 23:59 Intake Total 5005.00 / 5005.00 1513.2 / 1513.2 Output Total 2075 / 2075 850 / 850 Balance 2930.00 / 2930.00 663.2 / 663.2 General: Alert, Oriented x3, No apparent distress HEENT: Atraumatic, Normocephalic Oral: Moist Mucosa Neck: Supple Abdomen: Soft, Non Tender, Gravid Psych/Mental Status: Normal Affect, Appropriate, Alert and oriented to time, place, person, mood and affect Comment: CE: complete +1 per nursing Laboratory Results 06/08/20 07:40: WBC 6.0, RBC 3.91 L, Hgb 11.9 L, Hct 36.5 L, MCV 93.4, MCH 30.4, MCHC 32.6, RDW Std Deviation 43.9, RDW Coeff of Laury 13.0, Plt Count 171, MPV 11.2, Immature Gran % (Auto) 0.500, Neut % (Auto) 76.9 H, Lymph % (Auto) 17.1 L, [place] % (Auto) 5.0, Eos % (Auto) 0.2, Baso % (Auto) 0.3, Absolute Neuts (auto) 4.7, Absolute Lymphs (auto) 1.03, Nucleated RBC % 0 06/08/20 07:40: Blood Type A POSITIVE, Antibody Screen NEGATIVE Current Medications Acetaminophen (Tylenol) 325 - 650 mg PO Q4H PRN PRN PRN Reason: Pain Score 1-3/10 Al Hydroxide/Mg Hydroxide (Mylanta Ii) 15 - 30 ml PO Q4H PRN PRN PRN Reason: INDIGESTION Citric Acid/Sodium Citrate (Bicitra) 30 ml PO X1 PRN PRN Reason: Section Ephedrine Sulfate () 10 mg IV Q10M PRN PRN Reason: hypotension Ephedrine Sulfate () 10 mg IM Q30M PRN PRN Reason: hypotension Fentanyl Citrate (Sublimaze (100mcg Ampule)) 25 - 50 mcg IV Q2H PRN PRN PRN Reason: Pain Score 4-10/10 Fentanyl/Bupivacaine/Sodium Chlor () 0 ml EPIDURAL UD [facility]; Protocol Last Admin: 06/09/20 04:53 Dose: 100 ml Documented by: Lactated Ringer's () 500 mls @ 999 mls/hr IV .Q31M PRN PRN Reason: Epidural Last Infusion: 06/08/20 14:04 Dose: Infused Documented by: Lactated Ringer's () 500 mls @ 999 mls/hr IV .Q31M PRN PRN Reason: Corrective Measures Last Infusion: 06/08/20 23:00 Dose: Infused Documented by: Lactated Ringer's () 1,000 mls @ 50 mls/hr IV .Q20H [facility] Last Admin: 06/09/20 05:57 Dose: 200 mls/hr Documented by: Oxytocin/Sodium Chloride () 30 units in 500 mls @ 2 mls/hr IV .Q250H [facility] Last Infusion: 06/09/20 06:32 Dose: 2 mls/hr Documented by: Penicillin G Potassium/Dextrose (Penicillin G Potassium) 3 mu in 50 mls @ 100 mls/hr IV Q4H [facility] Last Infusion: 06/09/20 05:57 Dose: Infused Documented by: Naloxone HCl 4 mg/ Dextrose 504 mls @ 0 mls/hr IV .Q0M PRN; Protocol PRN Reason: To maintain Resp. rate >10 Ampicillin Sodium 2 gm/ Sodium (Chloride) 100 mls @ 200 mls/hr IV Q6H [facility] Last Infusion: 06/09/20 02:45 Dose: Infused Documented by: Gentamicin Sulfate 280 mg/ (Dextrose) 57 mls @ 100 mls/hr IVPB Q24H [facility] Last Infusion: 06/09/20 03:20 Dose: Infused Documented by: Nalbuphine HCl (Nubain) 5 mg IV Q3H PRN PRN PRN Reason: ITCHING Naloxone HCl (Narcan) 0.02 mg IV Q1M PRN PRN Reason: RR< 10 AND PT UNRESPONSIVE Ondansetron HCl (Zofran) 4 mg IV Q4H PRN PRN PRN Reason: NAUSEA Last Admin: 06/09/20 02:08 Dose: 4 mg Documented by: Prochlorperazine Edisylate (Compazine Iv) 10 mg IV Q6H PRN PRN PRN Reason: NAUSEA Sodium Chloride () 10 - 40 ml IV X1 PRN PRN Reason: SALINE FLUSH Last Admin: 06/08/20 20:03 Dose: 10 ml Documented by: Medical Necessity - Tobacco Use Smoking Status: Never smoker Assessment/Plan All Active Problems (Last Updated 06/08/20 @ 18:[address] Kenzie Shukla MD) 39 weeks gestation of (Acute) Pt seen and examined, reviewed tracing over night. Called by nursing with persistent temperature, tachycardia on tracing review with prolonged rupture of membranes dx with Chorio started on Amp/Gent and given tylenol. Turned pitocin off based on category II tracing throughout the evening with recurrent decels, now resolved. Latest exam by nursing complete and +1. Given order to start pushing. Evaluated while pushing, pt comfortable. FHT now: 130/mod laury/+accel/early decels with pushing. Will restart pitocin and continue pushing.
--- NOTE | 2020-06-09 09:30 | PCM.PN.BLA ---
Progress Note SUMMARY OF EVENTS for approximately 0930h Patient evaluated with Cat I FHR. SVE FD/+1 station. Patient pushing already approximately 3 hours. Fetus direct OP. Discussed continued pushing versus attempting vacuum assistance at this time with discussion of r/b each. Patient opted for the former. Vacuum was placed at the flexion point with 500mmHg suction with 8 pulls over approximately 22 minutes with descent to +2 station. FHR remained Cat II - 145, moderate variability with accelerations and occasional variable decelerations during this time period. I continued to push with patient with good maternal effort and descent was maintained. Advised continued second stage and will reassess. Anticipate . STROKE Vital Signs/Narrative: Vital Signs Temp Pulse BP Pulse Ox 06/09/20 11:48 81 117/66 90 06/09/20 11:46 99.1 F 06/09/20 10:08 70 122/58 H
--- NOTE | 2020-06-09 11:40 | PCM.PN.BLA ---
Progress Note LABOR PROGRESS NOTE Dorothy is doing well and without complaints. GEN - NAD, AAO x3 FHR 145, moderate variability, + variable deceleration, + accelerations TOCO 4/10 min Pitocin at 10mu/min SVE FD/+2 station I pushed with patient over additional contraction with no additional descent, persistent OP. At this time, advised section with review of risks, benefits, indications. Patient and had the opportunity to ask questions and questions were answered to their satisfaction. Will proceed with section. STROKE Vital Signs/Narrative: Vital Signs Temp Pulse Resp BP Pulse Ox 06/09/20 13:35 97.2 F L 104 H 16 107/66 100 06/09/20 11:48 81 117/66 90 06/09/20 11:46 99.1 F 06/09/20 10:08 70 122/58 H
--- NOTE | 2020-06-09 13:26 | OP.PCM_ITS ---
Problem List (1) 39 weeks gestation of Status: Acute (2) Arrest of descent, delivered, current hospitalization Status: Acute Delivery Classification: TYRELL Final EUGENIA: 06/14/20 Final EUGENIA Source: [place] <20 weeks Gestational age: 39 Weeks and 2 Days cctv technician: Eduarda Calle Type of Anesthesia:: Epidural, Local Date of Procedure: 06/09/20 Pre-Operative Diagnosis: 39 2/7 weeks gestation. Arrest of descent. Persistent occiput posterior. Chorioamnionitis (Suspected Triple I) Post-Operative Diagnosis: 39 2/7 weeks gestation. Arrest of descent. Persistent occiput posterior. Chorioamnionitis (Suspected Triple I) Indications: 29-year-old 2 para 0-1-0-0 at 39-2/7 weeks gestational age presented for scheduled induction of labor for prior history of IUFD at 23 weeks gestational a ge. She progressed to fully dilated and pushed for approximately 3 hours. At this time vacuum assistance was advised. Vacuum was placed with additional descent to +2 station. As a vacuum was placed for approximately 20 minutes with progress patient continued to labor including a period of laboring down for additional 1-1/2 hours however there is no further descent. Patient was advised to proceed with section. Procedural risks, benefits, indications were reviewed at length. Informed consent was obtained. Indications for : Arrrest of Descent Description of Procedure: The patient was taken to the operating room and epidural was found to be an adequate due to pain sensation in the left lower quadrant. An ilioinguinal block was placed including 10 cc of lidocaine at a dilution of 30 mg and 30 cc of normal saline. This was found to be adequate analgesia. She is placed in a dorsal supine position with left lateral tilt. The perineum and abdomen were prepped and draped in sterile fashion. And the spinal was found to be adequate. A Pfannenstiel incision was made using a scalpel and brought down to incise the subcutaneous tissue and rectus fascia at the midline. Subcutaneous tissue was bluntly dissected off the fascia laterally. The fascial incision was dissected laterally and cephalad using curved Etienne scissors. The superior leaflet of the rectus fascia was grasped using Katey clamps and bluntly dissected and sharply dissected from the underlying rectus muscle. In a similar fashion the inferior rectus fascia was dissected from the underlying muscle. The rectus muscles were bluntly at the midline. The peritoneum was identified and entered [sharply]. The bladder blade was placed into the abdomen and the vesicouterine peritoneal fold identified. The fold was incised and a bladder flap created. Bladder blade was then repositioned to the abdomen. A low transverse hysterotomy was made using the [Metzenbaum scissors] to level of the membranes. The hysterotomy was extended bluntly cephalad and caudad. The membranes were then ruptured revealing clear fluid. The head was elevated and brought to the level of the hysterotomy and the infant delivered revealing vigorous [female] . The cord was doubly clamped and cut after 30 seconds. The infant was passed to awaiting [nursery personnel]. The placenta was [expressed] from the uterus and appeared intact on inspection. The uterus was cleared of debris. The hysterotomy was then repaired using 0 Vicryl running lock suture. A second imbricating layer was also placed for additional hemostasis. Additional bleeding from the hysterotomy was controlled using 0 Vicryl horizontal mattress suture. The bladder blade was removed. The anterior cul-de-sac was cleared of debris. The peritoneum and rectus muscles were reapproximated using 2-0 Vicryl running suture. The rectus fascia was closed using 0 out of 6 running suture. The patient reported additional pain fullness and an additional 10 cc local lidocaine administered subcutaneously with good relief. the subcutaneous tissue was reapproximated using 2-0 Vicryl. The skin was closed using 4-0 Monocryl subcuticularly. Cavilon was applied around the perimeter of the incision and a Mepilex over occlusive dressing was placed over the incision. The fundus was firm. The patient was then transferred to the recovery room without complication. Sponge, instrument, and needle counts were correct ?2. Amniotic Membrane Rupture Type: Artificial Amniotic Fluid Description: Clear Placenta Disposition: [facility] Specimen(s) sent to pathology: Placenta Drain: Martinez to straight drain Cord Entanglement: None Nuchal Cord Compression: Without compression Cord Vessel Description: 3 Vessels Esitmated Blood Loss (ml): 900 Gender: Female (1 minute): 8 (5 minute): 9 Delayed cord clamping: Yes Antibiotic Given: Clindamycin 600mg IV x1 and Gentamicin 1.5mg/kg IV x1 Pt instructed on risks of surgery: Bleeding, Anesthesia Risks, Infection, Injury to surrounding structure(s) including bowel and bladder Complications: None - Admit VTE Documentation VTE Present on Admission: No VTE Mechan Device Prophylaxis: SCD's VTE Pharm Prophylaxis ordered?: No
--- NOTE | 2020-06-09 13:52 | DCINST_ITS ---
Discharge Diet: No Restrictions Discharge Activity: Return to Normal Activity, May not drive while taking narcotic pain medications., May Shower, - - No tub bath for 2 weeks May resume sexual activity in: 6 weeks Lifting Restrictions: 10 lb Suture Line Care: Avoid Pulling/Pushing Remove Dressing in (days):: 5 Cleanse incision/area with: Soap & Water Additional Instructions: If you experience any of the following, contact your healthcare provider. * Bleeding that soaks a pad every hour for 2 hours * Fever 100.4 or higher * Unrelieved incision or abdominal pain * Swelling, redness, discharge or bleeding from your incision or episiotomy site * Your incision begins to separate * Problems urinating (including inability to urinate or burning while urinating). * Visual changes * Severe headache * Flu-like symptoms * Pain or redness in one of both of your breasts * Pain, warmth, tenderness or swelling in your legs, especially the calf area * Frequent nausea and vomiting * Symptoms of depression or anxiety If you experience any of the following, call 911 or go to the nearest Emergency Room. * Chest pain * Problems breathing * Seizure activity * Partial or complete paralysis of a body part, slurred speech, weakness or drooping of the face, or a sudden inability to walk or hold your balance Allergies/Adverse Reactions: Allergies No Known Allergies Allergy (Verified 06/08/20 07:29) Medications to take at Discharge Docusate Sodium [Colace] 100 mg PO BID 06/08/20 Ferrous Sulfate [Iron] 325 mg PO BID 06/08/20 Vit No.130/Iron/Folic [ Tablet] 1 ea PO DAILY 06/08/20 Ibuprofen 600 mg PO TID PRN #30 tab 06/09/20 Oxycodone [Oxyir] 5 mg PO Q6H PRN PRN 7 Days #20 tablet 06/09/20 Saccharomyces Boulardii [Florastor] 250 mg PO DAILY #60 cap 06/09/20 The following prescriptions were given: Saccharomyces Boulardii [Florastor] 250 mg PO DAILY #60 cap Transmission Status: Pending to [facility] Ibuprofen 600 mg PO TID PRN #30 tab PRN Reason: Pain Score 1-07/08 Transmission Status: Pending to [facility] Oxycodone [Oxyir] 5 mg PO Q6H PRN PRN 7 Days #20 tablet PRN Reason: severe pain Transmission Status: Received by [facility] Follow-Up: Call to make an appointment with your doctor for an incision check in 1-2 weeks. You will also need a 6 week post- follow up appointment. Test results from this visit will be discussed in further detail at your follow- up appointment, if applicable. Please Follow Up With: Kenzie Zamora MD When: 7-14 days Primary Care Physician: Chelsea Gutiérrez DO [Primary Care Provider] -
[2020-06-09 14:39] LABS: Pathology Specimen OB SEE PATHOLOGY REPORT
[2020-06-09] MEDS: Oxytocin 30 units/NS 500 ml 30 UNITS/500 ML IV.SOLN 167 UNITS IV (14:45)
--- NOTE | 2020-06-09 17:20 | NURSING ---
labial edema present. Left >right. soft to touch. ice pack and tucks reapplied
[2020-06-09] MEDS: Ketorolac 30 MG/ML Syringe IV (18:31)
[2020-06-09] MEDS: Lactated Ringers 1,000 ML 100 ML IV (18:40)
[2020-06-09] MEDS: Heparin Injection (Vial) 5,000 UNIT/ML VIAL 5000 UNIT SC (20:03)
[2020-06-09] MEDS: proCHLORPERazine 10 MG/2 ML Vial IV (20:52)
[2020-06-10 00:04] VITALS: BP 103/47; PULSE 68; RESP 16; TEMP 36.3; O2SAT 100
[2020-06-10] MEDS: Acetaminophen 500 MG Tablet 1000 MG PO ×4 (00:10→20:14)
[2020-06-10] MEDS: Ketorolac 30 MG/ML Syringe IV ×2 (00:10→06:09)
--- NOTE | 2020-06-10 03:06 | NURSING ---
At 0030, patient was extremely nauseous and lightheaded. Wasn't able to tolerate getting OOB at this time and is not taking PO fluids well. This RN made the decision not to discontinue catheter. Talked to Natali Desai CNM at 0215. Physician gave OK to leave catheter in until patient could tolerate being out of bed to get to BR. Will continue to assess need for catheter and take out as soon as possible.
[2020-06-10 03:44] VITALS: BP 89/57; PULSE 99; RESP 16; TEMP 36.7
[2020-06-10] MEDS: 0.9% Saline Lock 10 ML Syringe IV ×2 (04:23→06:08)
[2020-06-10 06:21] LABS: Hematocrit 26.3 % (37-47); Hemoglobin 8.4 g/dL (12.0-15.0); Mean Corp Hgb Conc 31.9 g/dL (32-36); Mean Corpuscular Hgb 30.2 pg (27.0-32.0); Mean Corpuscular Volume 94.6 fL (81-99); Mean Platelet Vol. 11.5 fl (6.2-12.0); Platelet Count 128 K/mm3 (150-450); RBC Distribution Width CV 12.9 % (11.6-14.6); RBC Distribution Width SD 44.9 fl (35.1-43.9); Red Blood Count 2.78 M/mm3 (4.2-5.4); White Blood Count 12.1 K/mm3 (4.4-11.0)
[2020-06-10] MEDS: Heparin Injection (Vial) 5,000 UNIT/ML VIAL 5000 UNIT SC ×2 (08:25→20:15)
[2020-06-10 08:30] VITALS: BP 105/46; PULSE 94; RESP 14; TEMP 36.6
--- NOTE | 2020-06-10 09:36 | PCM.PN.OB ---
Patient Problems: Active and Suspected Problems (Last Updated 06/08/20 @ 18:[address] Kenzie Shukla MD) Arrest of descent, delivered, current hospitalization (Acute) 39 weeks gestation of (Acute) Subjective: Patient without complaints. Tolerating diet well. Positive flatus. Minimal vaginal bleeding reported. Objective: Hemoglobin okay as well as WBC. Good urine output. - Physical Exam Vitals/I&O's: Vital Signs Temp Pulse Resp BP Pulse Ox 98.1 F 99 16 89/57 L 100 06/10/20 03:44 06/10/20 03:44 06/10/20 03:44 06/10/20 03:44 06/10/20 00:04 Oxygen Delivery Method Room Air Weight: 175 lb 11.335 oz Body Mass Index (BMI) 30.1 Intake and Output for Last 24 Hours 06/08/20 06/09/20 06/10/20 23:59 23:59 23:59 Intake Total 5005.00 / 5005.00 4802.07 / 4802.07 971.67 / 971.67 Output Total 2075 / 2075 2450 / 2450 600 / 600 Balance 2930.00 / 2930.00 2352.07 / 2352.07 371.67 / 371.67 Laboratory Results 06/10/20 06:15: WBC 12.1 H, RBC 2.78 L, Hgb 8.4 L, Hct 26.3 L, MCV 94.6, MCH 30.2, MCHC 31.9 L, RDW Std Deviation 44.9 H, RDW Coeff of Laury 12.9, Plt Count 128 L, MPV 11.5 Current Medications Acetaminophen (Tylenol) 325 - 650 mg PO Q4H PRN PRN PRN Reason: Pain Score 1-3/10 Acetaminophen (Tylenol) 1,000 mg PO Q6 [facility] Last Admin: 06/10/20 06:08 Dose: 1,000 mg Documented by: Bisacodyl (Dulcolax) 10 mg RECTAL UD PRN PRN Reason: If no BM Heparin Sodium (Porcine) (Heparin Na) 5,000 unit SC Q12H [facility] Last Admin: 06/10/20 08:25 Dose: 5,000 unit Documented by: Hydrocortisone (Hytone) 1 applic TOPICAL TID PRN PRN; Protocol PRN Reason: Discomfort Lactated Ringer's () 1,000 mls @ 100 mls/hr IV .Q10H [facility] Last Infusion: 06/10/20 04:23 Dose: Infused Documented by: Naloxone HCl 4 mg/ Dextrose 504 mls @ 0 mls/hr IV .Q0M PRN; Protocol PRN Reason: Respiratory depression Ibuprofen (Motrin) 600 mg PO Q6 [facility] Ketorolac Tromethamine (Toradol (Bkc)) 30 mg IV Q6 [facility] Stop: 06/10/20 12:01 Last Admin: 06/10/20 06:09 Dose: 30 mg Documented by: Methylergonovine Maleate (Methergine) 0.2 mg IM X1 PRN PRN Reason: Uterine Atony Naloxone HCl (Narcan) 0.02 mg IV Q1M PRN PRN Reason: RR <10 and pt unresponsive Ondansetron HCl (Zofran) 4 mg IV Q4H PRN PRN PRN Reason: NAUSEA Last Admin: 06/09/20 18:38 Dose: 4 mg Documented by: Ondansetron HCl (Zofran) 4 mg IV Q4H PRN PRN PRN Reason: Nausea Oxycodone HCl (Oxyir) 5 - 10 mg PO Q4H PRN PRN PRN Reason: Pain Score 4-10/10 Prochlorperazine Edisylate (Compazine Iv) 10 mg IV Q6H PRN PRN PRN Reason: NAUSEA Last Admin: 06/09/20 20:52 Dose: 10 mg Documented by: Senna/Docusate Sodium (Senokot-S, Ramona-Colace) 0 tablet PO DAILY [facility] Simethicone (Mylicon) 80 mg PO PCHS PRN PRN Reason: Indigestion/stomach pain Sodium Chloride () 5 - 15 ml IV UD PRN PRN Reason: SALINE FLUSH Last Admin: 06/10/20 06:08 Dose: 10 ml Documented by: Medical Necessity - Tobacco Use Smoking Status: Never smoker Assessment/Plan All Active Problems (Last Updated 06/08/20 @ 18:[address] Kenzie Shukla MD) Arrest of descent, delivered, current hospitalization (Acute) 39 weeks gestation of (Acute) Doing well postoperative day #1 status post section. Will repeat CBC tomorrow. Anticipate discharge to home tomorrow if good progress continues.
[2020-06-10] MEDS: Senna/Docusate Sodium 1 Tablet PO (10:05)
[2020-06-10] MEDS: Ibuprofen 600 MG Tablet PO ×3 (12:35→23:38)
[2020-06-10 14:55] VITALS: BP 107/50; PULSE 88; RESP 18; TEMP 36.3
[2020-06-10 17:35] VITALS: BP 104/46; PULSE 83; RESP 18; TEMP 36.3; O2SAT 99
--- NOTE | 2020-06-10 20:17 | NURSING ---
Late entry: Report received from Darcy RN at 1640. This RN assuming care.
[2020-06-10 20:20] VITALS: BP 136/68; PULSE 87; RESP 16; TEMP 36.8
[2020-06-11 01:48] VITALS: BP 112/44; PULSE 78; RESP 16; TEMP 36.4
[2020-06-11] MEDS: Acetaminophen 500 MG Tablet 1000 MG PO ×3 (01:49→14:56)
[2020-06-11] MEDS: Ibuprofen 600 MG Tablet PO ×2 (05:40→11:45)
[2020-06-11 05:45] LABS: Absolute Lymphocyte Count 1.23 X10^3/uL (0.83-4.51); Absolute Neutrophil Count 9.7 X10^3/uL (2.0-7.7); Basophil# 0.01 X10^3/uL; Basophil% 0.1 % (0-1); Eosinophil# 0.08 X10^3/uL; Eosinophils% 0.7 % (0-5); Hematocrit 23.5 % (37-47); Hemoglobin 7.7 g/dL (12.0-15.0); Lymphocyte # 1.23 X10^3/ul (4.0); Lymphocyte % 10.7 % (19-41); Mean Corp Hgb Conc 32.8 g/dL (32-36); Mean Corpuscular Hgb 30.7 pg (27.0-32.0); Mean Corpuscular Volume 93.6 fL (81-99); Monocyte# 0.39 X10^3/uL; Monocyte% 3.4 % (0-10); NRBC Flagged by Analyzer 0 % (0-5); Neutrophil # 9.68 X10^3/uL (2.7-7.7); Neutrophil % 84.2 % (47-70); Platelet Count 139 K/mm3 (150-450); RBC Distribution Width CV 13.2 % (11.6-14.6); RBC Distribution Width SD 45.5 fl (35.1-43.9); Red Blood Count 2.51 M/mm3 (4.2-5.4); White Blood Count 11.5 K/mm3 (4.4-11.0)
[2020-06-11] MEDS: Heparin Injection (Vial) 5,000 UNIT/ML VIAL 5000 UNIT SC (08:47)
[2020-06-11 08:55] VITALS: BP 116/48; PULSE 80; RESP 16; TEMP 36.4; O2SAT 99
[2020-06-11] MEDS: Senna/Docusate Sodium 1 Tablet PO (10:23)
--- NOTE | 2020-06-11 10:24 | PN.OBGYN_ITS ---
Patient Problems: Active and Suspected Problems (Last Updated 06/08/20 @ 18:[address] Kenzie Shukla MD) Arrest of descent, delivered, current hospitalization (Acute) 39 weeks gestation of (Acute) Subjective: Patient without complaints. Minimal vaginal bleeding. Minimal orthostatic changes. Breast-feeding going well. Pain well controlled. Wants to go home. Objective: Wound is clean, dry, intact with Mepilex dressing in place. Hemoglobin stable. - Physical Exam Vitals/I&O's: Vital Signs Temp Pulse Resp BP Pulse Ox 97.6 F L 80 16 116/48 L 99 06/11/20 08:55 06/11/20 08:55 06/11/20 08:55 06/11/20 08:55 06/11/20 08:55 Oxygen Delivery Method Room Air Weight: 175 lb 11.335 oz Body Mass Index (BMI) 30.1 Intake and Output for Last 24 Hours 06/09/20 06/10/20 06/11/20 23:59 23:59 23:59 Intake Total 4802.07 / 4802.07 971.67 / 971.67 Output Total 2450 / 2450 900 / 900 Balance 2352.07 / 2352.07 71.67 / 71.67 Laboratory Results 06/11/20 05:35: WBC 11.5 H, RBC 2.51 L, Hgb 7.7 L, Hct 23.5 L, MCV 93.6, MCH 30.7, MCHC 32.8, RDW Std Deviation 45.5 H, RDW Coeff of Alury 13.2, Plt Count 139 L, MPV 11.0, Immature Gran % (Auto) 0.900, Neut % (Auto) 84.2 H, Lymph % (Auto) 10.7 L, [place] % (Auto) 3.4, Eos % (Auto) 0.7, Baso % (Auto) 0.1, Absolute Neuts (auto) 9.7 H, Absolute Lymphs (auto) 1.23, Nucleated RBC % 0 Current Medications Acetaminophen (Tylenol) 325 - 650 mg PO Q4H PRN PRN PRN Reason: Pain Score 1-3/10 Acetaminophen (Tylenol) 1,000 mg PO Q6H [facility] Last Admin: 06/11/20 08:47 Dose: 1,000 mg Documented by: Bisacodyl (Dulcolax) 10 mg RECTAL UD PRN PRN Reason: If no BM Heparin Sodium (Porcine) (Heparin Na) 5,000 unit SC Q12H [facility] Last Admin: 06/11/20 08:47 Dose: 5,000 unit Documented by: Hydrocortisone (Hytone) 1 applic TOPICAL TID PRN PRN; Protocol PRN Reason: Discomfort Naloxone HCl 4 mg/ Dextrose 504 mls @ 0 mls/hr IV .Q0M PRN; Protocol PRN Reason: Respiratory depression Ibuprofen (Motrin) 600 mg PO Q6 [facility] Last Admin: 06/11/20 05:40 Dose: 600 mg Documented by: Methylergonovine Maleate (Methergine) 0.2 mg IM X1 PRN PRN Reason: Uterine Atony Naloxone HCl (Narcan) 0.02 mg IV Q1M PRN PRN Reason: RR <10 and pt unresponsive Ondansetron HCl (Zofran) 4 mg IV Q4H PRN PRN PRN Reason: NAUSEA Last Admin: 06/09/20 18:38 Dose: 4 mg Documented by: Ondansetron HCl (Zofran) 4 mg IV Q4H PRN PRN PRN Reason: Nausea Oxycodone HCl (Oxyir) 5 - 10 mg PO Q4H PRN PRN PRN Reason: Pain Score 4-10/10 Prochlorperazine Edisylate (Compazine Iv) 10 mg IV Q6H PRN PRN PRN Reason: NAUSEA Last Admin: 06/09/20 20:52 Dose: 10 mg Documented by: Senna/Docusate Sodium (Senokot-S, Ramona-Colace) 0 tablet PO DAILY [facility] Last Admin: 06/11/20 10:23 Dose: 1 tablet Documented by: Simethicone (Mylicon) 80 mg PO PCHS PRN PRN Reason: Indigestion/stomach pain Sodium Chloride () 5 - 15 ml IV UD PRN PRN Reason: SALINE FLUSH Last Admin: 06/10/20 06:08 Dose: 10 ml Documented by: Medical Necessity - Tobacco Use Smoking Status: Never smoker Assessment/Plan All Active Problems (Last Updated 06/08/20 @ 18:[address] Kenzie Shukla MD) Arrest of descent, delivered, current hospitalization (Acute) 39 weeks gestation of (Acute) Doing well postoperative day #2 status post section. Will discharge to home with routine instructions. Continue iron sulfate twice daily.
[2020-06-11] MEDS: oxyCODONE 5 MG Tablet PO (10:38)
[2020-06-11 13:44] VITALS: BP 112/58; PULSE 71; RESP 16; TEMP 36.8; O2SAT 98
[2020-06-11 15:25] VITALS: RESP 16
== END 2020-06-11 15:10 | disposition home or self-care (01) | DRG 786 ==
PROVIDERS: Obstetrics & Gynecology; Admitting Provider Obstetrics & Gynecology; PCP Family Medicine; Referring Provider Obstetrics & Gynecology; Visit Provider Obstetrics & Gynecology
DX: O99.824 Streptococcus B carrier state complicating childbirth (principal); O41.1230 Chorioamnionitis, third trimester, not applicable or unspecified; O42.92 Full-term premature rupture of membranes, unspecified as to length of time between rupture and onset of labor; O62.1 Secondary uterine inertia; O64.0XX0 Obstructed labor due to incomplete rotation of fetal head, not applicable or unspecified; O76 Abnormality in fetal heart rate and rhythm complicating labor and delivery; Z3A.39 39 weeks gestation of pregnancy; Z37.0 Single live birth
CPT/HCPCS: 59025; 59050; 85025; 85027; 86850; 86900; 86901; 88307; 99218; 99251; J7120; A4216; G0378; G0463; J2405

== ENCOUNTER → 2020-06-27 13:15 | Outpatient (CLI) | payer OTHER, SELFPAY ==
[2020-06-08 07:24] VITALS: BMI 30.1
== END ==
PROVIDERS: PCP Family Medicine; Visit Provider Obstetrics & Gynecology
DX: R19.7 Diarrhea, unspecified (principal)
CPT/HCPCS: 87493

== ENCOUNTER 2021-10-19 14:10 | Outpatient (CLI) | payer OTHER, SELFPAY | END 2021-10-19 23:59 | disposition short-term general hospital (02) | LOC: MTRAD 14:11 | PROVIDERS: PCP Family Medicine; Referring Provider Physician Assistant Surgical; Visit Provider Physician Assistant Surgical | DX: J20.9 Acute bronchitis, unspecified (principal) ==

== ENCOUNTER 2021-10-24 06:53 | Outpatient (CLI) | payer OTHER, SELFPAY ==
--- NOTE | 2021-10-24 12:46 | NEURO ---
NCS and/or EMG Patient Report Ordering Doctor: Jacqui Correa DATE OF SERVICE: 10/24/21 Dorothy presents for electrodiagnostic testing of the left lower limb. She reports pain in the left foot with numbness. She does report history of neuroma. Electrodiagnostic findings: Left peroneal motor nerve demonstrates normal distal latency, amplitude and conduction velocity. Normal left tibial motor response. Normal tibial and peroneal F-wave. Sensory responses are within normal limits H reflex normal bilaterally. On needle EMG, all muscles tested in the left lower limb showed no evidence of denervation with normal motor unit action potentials. Next Electrodiagnostic impression: This is a normal electrodiagnostic study of the left lower limb. There is no electrodiagnostic evidence for peripheral neuropathy.
== END 2021-10-24 23:59 | disposition short-term general hospital (02) ==
LOC: PSN 06:54
PROVIDERS: PCP Family Medicine; Referring Provider Physician Assistant; Visit Provider Physician Assistant
DX: M72.2 Plantar fascial fibromatosis (principal); G57.62 Lesion of plantar nerve, left lower limb
CPT/HCPCS: 95886; 95910

== ENCOUNTER 2021-11-06 07:34 | Outpatient (CLI) | payer OTHER, SELFPAY ==
[2021-11-06 07:58] LABS: Erythrocyte Sedimentation Rate 33 mm/hr (0-30)
[2021-11-06 08:00] LABS: Absolute Lymphocyte Count 1.39 X10^3/uL (0.83-4.51); Absolute Neutrophil Count 3.1 X10^3/uL (2.0-7.7); Basophil# 0.02 X10^3/uL; Basophil% 0.4 % (0-1); Eosinophil# 0.06 X10^3/uL; Eosinophils% 1.2 % (0-5); Hemoglobin 11.8 g/dL (12.0-15.0); Lymphocyte # 1.39 X10^3/ul (0.83-4.51); Lymphocyte % 28.7 % (19-41); Mean Corp Hgb Conc 31.9 g/dL (32-36); Mean Corpuscular Hgb 26.4 pg (27.0-32.0); Mean Corpuscular Volume 82.8 fL (81-99); Monocyte# 0.32 X10^3/uL; Monocyte% 6.6 % (0-10); NRBC Flagged by Analyzer 0 % (0-5); Neutrophil # 3.05 X10^3/uL (2.7-7.7); Neutrophil % 62.9 % (47-70); Platelet Count 280 K/mm3 (150-450); RBC Distribution Width CV 13.8 % (11.6-14.6); RBC Distribution Width SD 41.1 fl (35.1-43.9); Red Blood Count 4.47 M/mm3 (4.2-5.4); White Blood Count 4.9 K/mm3 (4.4-11.0)
[2021-11-06 08:29] LABS: Vitamin B12 245 pg/mL (211-911); Vitamin D,25 Hydroxy 16.4 ng/mL
[2021-11-06 08:57] LABS: ALB/GLOB Ratio 0.7 RATIO (0.9-2.4); AST(SGOT) 12 U/L (15-37); Alanine Aminotransfer ALT/SGPT 17 U/L (13-56); Alkaline Phosphatase 60 U/L (45-117); Anion Gap 9 (5-15); BUN 8 mg/dL (7-18); Calcium,Total 8.6 mg/dL (8.5-10.1); Chloride 107 mmol/L (98-107); EST Glomerular Filtration Rate 88 mL/min (>60); Est Glom Filt Rate - Afr Amer 106 mL/min (>60); Ferritin 4 ng/mL (8-252); Free T3 2.9 pg/mL (2.18-3.98); Globulin 4.4 g/dL (2.2-4.2); Glucose 89 mg/dL (74-106); Iron 59 ug/dL (50-170); Potassium 3.9 mmol/L (3.5-5.1); Protein, Total 7.4 g/dL (6.4-8.2); Sodium Level 139 mmol/L (136-145); T4 Free Direct 1.01 ng/dL (0.76-1.46); Thyroid Stim Hormone (TSH) 1.61 uIU/mL (0.358-3.74)
[2021-11-07 13:39] LABS: MG Sendout 2.4 mg/dL (1.6-2.3)
== END 2021-11-06 23:59 | disposition home or self-care (01) ==
LOC: PAVLAB 07:35
PROVIDERS: PCP Family Medicine; Referring Provider Family Medicine; Visit Provider Family Medicine
DX: R53.83 Other fatigue (principal); E55.9 Vitamin D deficiency, unspecified; D50.9 Iron deficiency anemia, unspecified; R51.9 Headache, unspecified; E53.8 Deficiency of other specified B group vitamins; Z51.81 Encounter for therapeutic drug level monitoring; M25.50 Pain in unspecified joint
CPT/HCPCS: 36415; 80053; 82306; 82607; 82728; 83540; 83735; 84439; 84443; 84481; 85025; 85652; 86140

== ENCOUNTER 2021-11-29 07:55 | Outpatient (CLI) | payer OTHER, SELFPAY ==
[2021-11-29 08:32] LABS: Rheumatoid Factor < 10.0 IU/mL (<15)
[2021-11-30 14:09] LABS: ANTINUCLEAR ANTIBODIES DIRECT Positive (Negative); Anti-Centromere B Ab <0.2 AI (0.0-0.9); Anti-Chromatin <0.2 AI (0.0-0.9); Anti-Jo <0.2 AI (0.0-0.9); Anti-Scleroderma-70 AB <0.2 AI (0.0-0.9); RNP Ab 1.1 AI (0.0-0.9); SJOGREN'S Anti-SS-A test < 0.2 AI (0.0-0.9); SJOGREN'S Anti-SS-B test < 0.2 AI (0.0-0.9); Smith Ab <0.2 AI (0.0-0.9)
[2021-11-30 15:10] LABS: Anti-dsDNA Ab 22 IU/mL (0-9)
[2021-12-03 12:13] LABS: CCP IgG Antibodies 6 units (0-19)
== END 2021-11-29 23:59 | disposition home or self-care (01) ==
LOC: LAB.FUTURE 07:55 → PAVLAB 07:56
PROVIDERS: PCP Family Medicine; Referring Provider Family Medicine; Visit Provider Family Medicine
DX: M25.50 Pain in unspecified joint (principal); M79.10 Myalgia, unspecified site
CPT/HCPCS: 36415; 86038; 86200; 86225; 86235; 86431

== ENCOUNTER → 2022-02-05 | Outpatient (CLI) | payer OTHER, SELFPAY ==
[2022-02-05 10:33] LABS: Mucous, Urine 0 SEEN /hpf (<or=2+); Red Blood Cells-Urine 0 SEEN /hpf (0-5)
[2022-02-05 10:38] LABS: Color, Urine Yellow (Yellow); Glucose, Dipstick Normal (Normal); Ketone-Dipstick Negative (Negative); Leukocyte Esterase-Dipstick 25 /ul (Negative); Nitrite-Dipstick Negative (Negative); Occult Blood-Urine Negative /ul (Negative); Protein-Dipstick Negative (Negative); Specific Gravity, Urine 1.015 (1.002-1.030); Urine Bilirubin Dipstick Negative (Negative); Urine Clarity Clear (Clear); Urine Urobilinogen Normal (Normal)
[2022-02-05 10:45] LABS: Bacteria 1+ /hpf (None Seen); White Blood Cells 0-5 SEEN /hpf (0-5)
[2022-02-05 10:46] LABS: Squamous Epithelial Cells - UA 5-10 SEEN /hpf (5-10)
[2022-02-05 11:19] LABS: Absolute Lymphocyte Count 1.65 X10^3/uL (0.83-4.51); Absolute Neutrophil Count 4.8 X10^3/uL (2.0-7.7); Basophil# 0.03 X10^3/uL; Basophil% 0.4 % (0-1); Eosinophil# 0.13 X10^3/uL; Eosinophils% 1.8 % (0-5); Hematocrit 37.3 % (37-47); Hemoglobin 11.5 g/dL (12.0-15.0); Lymphocyte # 1.65 X10^3/ul (0.83-4.51); Lymphocyte % 23.3 % (19-41); Mean Corp Hgb Conc 30.8 g/dL (32-36); Mean Corpuscular Hgb 25.4 pg (27.0-32.0); Mean Corpuscular Volume 82.5 fL (81-99); Mean Platelet Vol. 10.5 fl (6.2-12.0); Monocyte# 0.46 X10^3/uL; Monocyte% 6.5 % (0-10); NRBC Flagged by Analyzer 0 % (0-5); Neutrophil % 67.7 % (47-70); Platelet Count 309 K/mm3 (150-450); RBC Distribution Width CV 14.9 % (11.6-14.6); RBC Distribution Width SD 45.1 fl (35.1-43.9); Red Blood Count 4.52 M/mm3 (4.2-5.4); White Blood Count 7.1 K/mm3 (4.4-11.0)
[2022-02-05 11:22] LABS: Protein, Urine (Random) 17.3 mg/dL (<11.9); Protein:Creat Ratio 88 mg/g CRE (0-200)
[2022-02-05 11:36] LABS: Erythrocyte Sedimentation Rate 59 mm/hr (0-30)
[2022-02-05 11:45] LABS: Vitamin D,25 Hydroxy 70.3 ng/mL
[2022-02-05 11:48] LABS: ALB/GLOB Ratio 0.7 RATIO (0.9-2.4); AST(SGOT) 11 U/L (15-37); Alanine Aminotransfer ALT/SGPT 19 U/L (13-56); Albumin, Serum 3.1 g/dL (3.2-5.0); Alkaline Phosphatase 55 U/L (45-117); Anion Gap 7 (5-15); BUN 9 mg/dL (7-18); BUN/Creat Ratio 13.3 RATIO (10-20); CPK Total, Creatine Kinase 54 U/L (26-192); Chloride 103 mmol/L (98-107); Creatinine, Serum 0.68 mg/dL (0.55-1.02); EST Glomerular Filtration Rate 106 mL/min (>60); Est Glom Filt Rate - Afr Amer 129 mL/min (>60); Ferritin 4 ng/mL (8-252); Globulin 4.3 g/dL (2.2-4.2); Glucose 86 mg/dL (74-106); Iron 40 ug/dL (50-170); Iron Binding Capacity,Total 478 ug/dL (250-450); Protein, Total 7.4 g/dL (6.4-8.2); Sodium Level 136 mmol/L (136-145)
[2022-02-07 08:10] LABS: RNP Ab 0.9 AI (0.0-0.9); SJOGREN'S Anti-SS-A test < 0.2 AI (0.0-0.9); SJOGREN'S Anti-SS-B test < 0.2 AI (0.0-0.9); Smith Ab <0.2 AI (0.0-0.9)
[2022-02-07 10:37] LABS: Anti-Nuclear Antibody Test Negative (.); Anti-dsDNA Ab 2 IU/mL (0-9)
[2022-02-11 21:07] LABS: Complement C3 159 mg/dL (82-167)
[2022-02-11 21:47] LABS: Anti-Cardiolipin Ab, IgA, Qn < 9 APL U/mL (0-11); Anti-Cardiolipin Ab, IgG, Qn < 9 GPL U/mL (0-14); Anti-Cardiolipin Ab, IgM, Qn 17 MPL U/mL (0-12); HLA B27 Negative (.)
== END | disposition home or self-care (01) ==
PROVIDERS: PCP Family Medicine; Referring Provider Internal Medicine; Visit Provider Internal Medicine
DX: R76.8 Other specified abnormal immunological findings in serum (principal); M54.50 Low back pain, unspecified
CPT/HCPCS: 36415; 80053; 81001; 81374; 82306; 82550; 82570; 82728; 83540; 83550; 84156; 85025; 85652; 86038; 86140; 86147; 86160; 86225; 86235

== ENCOUNTER → 2022-02-08 | Outpatient (CLI) | payer OTHER, SELFPAY ==
--- NOTE | 2022-02-08 12:35 | RAD_ITS ---
STUDY: X-RAY - LUMBAR SPINE REASON FOR EXAM: Female, 31 years old. POSITIVE LYUDMILA TECHNIQUE: 3 view(s) of the lumbar spine were obtained. COMPARISON: None FINDINGS: Normal lumbar lordosis. There is no substantial scoliosis. There is a normal alignment of the vertebrae. Normal vertebral bodies and endplates. Normal disc space heights. The soft tissue structures are unremarkable. RAD/Lumbar Spine 2 or 3 Views IMPRESSION: Normal x-ray examination of the lumbar spine. Electronically Signed: Christian Langston MD ([place]) at 19:28 EDT ,
--- NOTE | 2022-02-08 12:35 | RAD_ITS ---
STUDY: X-RAY - SACROILIAC JOINTS REASON FOR EXAM: Female, 31 years old. POSITIVE LYUDMILA TECHNIQUE: 3 view(s) of the sacroiliac joints were obtained. COMPARISON: None. FINDINGS: There are mild erosions and iliac sided sclerosis of the bilateral sacroiliac joints. Normal visualized sacral ala and sacrum. Normal visualized iliac bones. Normal visualized soft tissue structures. RAD/S-I Jts 3 or More Views IMPRESSION: Bilateral, relatively symmetric sacroiliitis (enteropathic arthritis, ankylosing spondylitis, rheumatoid arthritis). Electronically Signed: Christian Langston MD ([place]) at 19:50 EDT Reading Location ID and State: [facility] / [place] , Service support ,
== END | disposition home or self-care (01) ==
LOC: RAD 12:32
PROVIDERS: PCP Family Medicine; Referring Provider Internal Medicine; Visit Provider Internal Medicine
DX: R76.8 Other specified abnormal immunological findings in serum (principal)
CPT/HCPCS: 72100; 72202

== ENCOUNTER → 2022-03-21 | Outpatient (CLI) | payer OTHER, SELFPAY ==
[2022-03-21 08:43] LABS: Hepatitis B Surface Antibody Reactive; Hepatitis B Surface Antigen Non-Reactive (Nonreactive)
== END | disposition home or self-care (01) ==
LOC: PAVLAB 07:33
PROVIDERS: PCP Family Medicine; Referring Provider Internal Medicine; Visit Provider Internal Medicine
DX: Z79.899 Other long term (current) drug therapy (principal)
CPT/HCPCS: 36415; 86480; 86704; 86706; 86803; 86804; 87340

== ENCOUNTER → 2022-08-16 | Outpatient (CLI) | payer OTHER, SELFPAY ==
[2022-08-16 12:11] LABS: Absolute Lymphocyte Count 1.89 X10^3/uL (0.83-4.51); Absolute Neutrophil Count 4.5 X10^3/uL (2.0-7.7); Basophil# 0.01 X10^3/uL; Basophil% 0.1 % (0-1); Eosinophil# 0.04 X10^3/uL; Eosinophils% 0.6 % (0-5); Hematocrit 36.3 % (37-47); Lymphocyte # 1.89 X10^3/ul (0.83-4.51); Lymphocyte % 27.4 % (19-41); Mean Corp Hgb Conc 30.3 g/dL (32-36); Mean Corpuscular Hgb 24.8 pg (27.0-32.0); Mean Corpuscular Volume 81.8 fL (81-99); Monocyte# 0.41 X10^3/uL; Monocyte% 5.9 % (0-10); NRBC Flagged by Analyzer 0 % (0-5); Neutrophil # 4.54 X10^3/uL (2.7-7.7); Neutrophil % 65.9 % (47-70); Platelet Count 292 K/mm3 (150-450); RBC Distribution Width CV 14.5 % (11.6-14.6); RBC Distribution Width SD 42.6 fl (35.1-43.9); Red Blood Count 4.44 M/mm3 (4.2-5.4); White Blood Count 6.9 K/mm3 (4.4-11.0)
[2022-08-16 12:28] LABS: ALB/GLOB Ratio 0.7 RATIO (0.9-2.4); AST(SGOT) 11 U/L (15-37); Alanine Aminotransfer ALT/SGPT 16 U/L (13-56); Albumin, Serum 3.2 g/dL (3.2-5.0); Alkaline Phosphatase 68 U/L (45-117); Anion Gap 8 (5-15); BUN 8 mg/dL (7-18); BUN/Creat Ratio 11.2 RATIO (10-20); Calcium,Total 9.3 mg/dL (8.5-10.1); Chloride 105 mmol/L (98-107); Creatinine, Serum 0.72 mg/dL (0.55-1.02); EST Glomerular Filtration Rate 99 mL/min (>60); Est Glom Filt Rate - Afr Amer 120 mL/min (>60); Globulin 4.5 g/dL (2.2-4.2); Glucose 92 mg/dL (74-106); Potassium 3.8 mmol/L (3.5-5.1); Protein, Total 7.7 g/dL (6.4-8.2); Sodium Level 139 mmol/L (136-145)
[2022-08-16 13:49] LABS: Vitamin D,25 Hydroxy 33.2 ng/mL
[2022-08-18 07:52] LABS: Anti-Cardiolipin Ab, IgA, Qn < 9 APL U/mL (0-11); Anti-Cardiolipin Ab, IgG, Qn < 9 GPL U/mL (0-14); Anti-Cardiolipin Ab, IgM, Qn 16 MPL U/mL (0-12)
== END | disposition home or self-care (01) ==
PROVIDERS: Obstetrics & Gynecology; PCP Family Medicine; Referring Provider Internal Medicine; Visit Provider Internal Medicine
DX: Z79.899 Other long term (current) drug therapy (principal)
CPT/HCPCS: 80053; 82306; 85025; 86147

== ENCOUNTER → 2022-10-03 | Outpatient (CLI) | payer OTHER, SELFPAY ==
[2022-10-07 12:40] LABS: HPV APTIMA, High Risk Negative (Negative)
== END | disposition home or self-care (01) ==
LOC: LABSPEC 11:04
PROVIDERS: PCP Family Medicine; Referring Provider Obstetrics & Gynecology; Visit Provider Obstetrics & Gynecology
DX: Z12.4 Encounter for screening for malignant neoplasm of cervix (principal)
CPT/HCPCS: 87624; 88175; G0145

== ENCOUNTER → 2022-10-09 | Outpatient (CLI) | payer OTHER, SELFPAY ==
[2022-10-09 08:01] LABS: Erythrocyte Sedimentation Rate 28 mm/hr (0-30)
[2022-10-09 08:03] LABS: Absolute Lymphocyte Count 1.55 X10^3/uL (0.83-4.51); Absolute Neutrophil Count 2.3 X10^3/uL (2.0-7.7); Basophil# 0.02 X10^3/uL; Basophil% 0.5 % (0-1); Eosinophil# 0.08 X10^3/uL; Eosinophils% 1.8 % (0-5); Hematocrit 37.1 % (37-47); Hemoglobin 11.1 g/dL (12.0-15.0); Lymphocyte # 1.55 X10^3/ul (0.83-4.51); Lymphocyte % 35.6 % (19-41); Mean Corp Hgb Conc 29.9 g/dL (32-36); Mean Corpuscular Hgb 24.8 pg (27.0-32.0); Mean Corpuscular Volume 82.8 fL (81-99); Mean Platelet Vol. 10.8 fl (6.2-12.0); Monocyte# 0.35 X10^3/uL; NRBC Flagged by Analyzer 0 % (0-5); Neutrophil # 2.34 X10^3/uL (2.7-7.7); Neutrophil % 53.6 % (47-70); Platelet Count 285 K/mm3 (150-450); RBC Distribution Width CV 14.9 % (11.6-14.6); RBC Distribution Width SD 44.7 fl (35.1-43.9); Red Blood Count 4.48 M/mm3 (4.2-5.4); White Blood Count 4.4 K/mm3 (4.4-11.0)
[2022-10-09 08:40] LABS: ALB/GLOB Ratio 0.9 RATIO (0.9-2.4); AST(SGOT) 31 U/L (15-37); Alanine Aminotransfer ALT/SGPT 51 U/L (13-56); Albumin, Serum 3.4 g/dL (3.2-5.0); Alkaline Phosphatase 72 U/L (45-117); Anion Gap 8 (5-15); BUN 15 mg/dL (7-18); BUN/Creat Ratio 21.1 RATIO (10-20); Chloride 109 mmol/L (98-107); Creatinine, Serum 0.71 mg/dL (0.55-1.02); EST Glomerular Filtration Rate 100 mL/min (>60); Est Glom Filt Rate - Afr Amer 121 mL/min (>60); Globulin 3.8 g/dL (2.2-4.2); Glucose 96 mg/dL (74-106); Potassium 3.9 mmol/L (3.5-5.1); Protein, Total 7.2 g/dL (6.4-8.2); Sodium Level 142 mmol/L (136-145)
[2022-10-09 12:50] LABS: Vitamin D,25 Hydroxy 28.9 ng/mL
== END | disposition home or self-care (01) ==
LOC: PAVLAB 07:44
PROVIDERS: PCP Family Medicine; Referring Provider Internal Medicine; Visit Provider Internal Medicine
DX: M25.50 Pain in unspecified joint (principal)
CPT/HCPCS: 36415; 80053; 82306; 85025; 85652; 86140

== ENCOUNTER → 2022-11-28 | Outpatient (CLI) | payer OTHER, SELFPAY ==
[2022-11-28 08:11] LABS: Erythrocyte Sedimentation Rate 32 mm/hr (0-30)
[2022-11-28 08:15] LABS: Absolute Lymphocyte Count 1.87 X10^3/uL (0.83-4.51); Absolute Neutrophil Count 2.5 X10^3/uL (2.0-7.7); Basophil# 0.05 X10^3/uL; Eosinophil# 0.08 X10^3/uL; Eosinophils% 1.6 % (0-5); Hematocrit 35.4 % (37-47); Lymphocyte # 1.87 X10^3/ul (0.83-4.51); Lymphocyte % 38.3 % (19-41); Mean Corp Hgb Conc 31.1 g/dL (32-36); Mean Corpuscular Hgb 25.3 pg (27.0-32.0); Mean Corpuscular Volume 81.4 fL (81-99); Mean Platelet Vol. 11.2 fl (6.2-12.0); Monocyte# 0.34 X10^3/uL; NRBC Flagged by Analyzer 0 % (0-5); Neutrophil # 2.53 X10^3/uL (2.7-7.7); Neutrophil % 51.9 % (47-70); Platelet Count 214 K/mm3 (150-450); RBC Distribution Width CV 14.6 % (11.6-14.6); RBC Distribution Width SD 42.6 fl (35.1-43.9); Red Blood Count 4.35 M/mm3 (4.2-5.4); White Blood Count 4.9 K/mm3 (4.4-11.0)
[2022-11-28 08:53] LABS: ALB/GLOB Ratio 0.8 RATIO (0.9-2.4); AST(SGOT) 18 U/L (15-37); Alanine Aminotransfer ALT/SGPT 28 U/L (13-56); Albumin, Serum 3.4 g/dL (3.2-5.0); Alkaline Phosphatase 83 U/L (45-117); Anion Gap 7 (5-15); BUN 12 mg/dL (7-18); BUN/Creat Ratio 16.6 RATIO (10-20); CRP 7.94 mg/L (0.0-3.0); Calcium,Total 8.8 mg/dL (8.5-10.1); Chloride 105 mmol/L (98-107); Creatinine, Serum 0.72 mg/dL (0.55-1.02); EST Glomerular Filtration Rate 98 mL/min (>60); Est Glom Filt Rate - Afr Amer 119 mL/min (>60); Globulin 4.1 g/dL (2.2-4.2); Glucose 88 mg/dL (74-106); Potassium 3.8 mmol/L (3.5-5.1); Protein, Total 7.5 g/dL (6.4-8.2); Sodium Level 139 mmol/L (136-145)
[2022-11-28 08:57] LABS: Vitamin D,25 Hydroxy 23.8 ng/mL
[2022-11-30 15:07] LABS: QNTFERON TB Mitogen Value > 10.00 IU/mL (.); QNTFERON TB Nil Value 0.01 IU/mL (.); QNTFERON TB1+ Ag Value 0.01 IU/mL (.); QNTFERON TB2+ Ag Value 0 IU/mL (.)
[2022-12-01 14:03] LABS: QNTIFERON TB Positive Criteria Negative (Negative)
== END | disposition home or self-care (01) ==
LOC: PAVLAB 07:42
PROVIDERS: PCP Family Medicine; Referring Provider Internal Medicine; Visit Provider Internal Medicine
DX: Z79.899 Other long term (current) drug therapy (principal)
CPT/HCPCS: 36415; 80053; 82306; 85025; 85652; 86140; 86480

== ENCOUNTER → 2023-01-20 | Outpatient (CLI) | payer OTHER, SELFPAY ==
--- NOTE | 2023-01-20 14:26 | CT_ITS ---
INDICATION: THUNDERCLAP HEADACHE EXAMINATION: CT BRAIN - CT Head or Brain W/O Contrast Injection TECHNIQUE: Multiple axial images were obtained of the head without intravenous contrast. A radiation dose optimization technique was used for this scan. IV Contrast dosage and agent: None. RADIATION DOSAGE (If Supplied By Facility): CTDIvol = ( 44.99 ) mGy, DLP = ( 796.11 ) mGycm COMPARISON: FINDINGS: BRAIN PARENCHYMA: There is a dystrophic calcifications within the basal ganglia bilaterally. Given patient''s age these could be related to calcium metabolic disorder such as calcium phosphate deposition disease. No intra- or extra-axial hemorrhage. No evidence of acute infarct. No intracranial mass or mass effect. There is preservation of the rojas/white matter interface. Posterior fossa structures are unremarkable. CSF SPACES: Appropriate for age. No hydrocephalus. Basal cisterns are patent. CALVARIUM, SKULL BASE, PARANASAL SINUSES AND MASTOID AIR CELLS: Clear. No discrete lytic or blastic abnormalities. ORBITS: Both globes, extraocular muscles, optic nerves and retrobulbar fat appear unremarkable. ASPECTS Score for Acute Strokes: 10 CT/Brain/Head without Contrast IMPRESSION: No acute changes. Bilateral basal ganglia calcifications which could be due to calcium metabolic disorder. Electronically Signed: Artem Duggan MD, LEATHA at 17:05 EDT ,
== END | disposition home or self-care (01) ==
LOC: CT 14:25
PROVIDERS: PCP Family Medicine
DX: G44.53 Primary thunderclap headache (principal)
CPT/HCPCS: 70450

== ENCOUNTER → 2023-02-06 | Outpatient (CLI) | payer OTHER, SELFPAY ==
[2023-02-10 22:06] LABS: Chlamydia By Nucleic Acid AMP Negative (Negative); Gonococcus By Nucleic Acid AMP Negative (Negative)
== END | disposition home or self-care (01) ==
LOC: LABSPEC 16:55
PROVIDERS: PCP Family Medicine; Referring Provider Obstetrics & Gynecology; Visit Provider Obstetrics & Gynecology
DX: O99.891 Other specified diseases and conditions complicating pregnancy (principal); R76.0 Raised antibody titer; Z3A.00 Weeks of gestation of pregnancy not specified
CPT/HCPCS: 87086; 87088; 87491; 87591

== ENCOUNTER → 2023-02-27 | Outpatient (CLI) | payer OTHER, SELFPAY ==
[2023-02-27 08:02] LABS: Absolute Lymphocyte Count 1.54 X10^3/uL (0.83-4.51); Absolute Neutrophil Count 2.2 X10^3/uL (2.0-7.7); Basophil# 0.02 X10^3/uL; Basophil% 0.5 % (0-1); Eosinophil# 0.07 X10^3/uL; Eosinophils% 1.7 % (0-5); Hematocrit 35.2 % (37-47); Hemoglobin 10.9 g/dL (12.0-15.0); Lymphocyte # 1.54 X10^3/ul (0.83-4.51); Lymphocyte % 36.6 % (19-41); Mean Corpuscular Volume 80.7 fL (81-99); Mean Platelet Vol. 10.6 fl (6.2-12.0); Monocyte# 0.35 X10^3/uL; Monocyte% 8.3 % (0-10); NRBC Flagged by Analyzer 0 % (0-5); Neutrophil # 2.21 X10^3/uL (2.7-7.7); Neutrophil % 52.4 % (47-70); Platelet Count 243 K/mm3 (150-450); RBC Distribution Width CV 16.2 % (11.6-14.6); RBC Distribution Width SD 47.6 fl (35.1-43.9); Red Blood Count 4.36 M/mm3 (4.2-5.4); White Blood Count 4.2 K/mm3 (4.4-11.0)
[2023-02-27 08:57] LABS: NATERA MAILED SPECIMEN
[2023-02-27 09:35] LABS: HIV - WCH Non-Reactive (Nonreactive); Hepatitis B Surface Antigen Non-Reactive (Nonreactive); Hepatitis C Antibody Non-Reactive (Nonreactive); Rubella IgG Reactive (Nonreactive); Syphilis Antibodies Non-reactive
== END | disposition home or self-care (01) ==
LOC: PAVLAB 07:42
PROVIDERS: PCP Family Medicine; Referring Provider Obstetrics & Gynecology; Visit Provider Obstetrics & Gynecology
DX: Z34.81 Encounter for supervision of other normal pregnancy, first trimester (principal); Z3A.00 Weeks of gestation of pregnancy not specified
CPT/HCPCS: 36415; 85025; 86703; 86762; 86780; 86803; 86850; 86900; 86901; 87340

== ENCOUNTER → 2023-05-14 | Outpatient (CLI) | payer OTHER, SELFPAY | END | disposition home or self-care (01) | LOC: LABSPEC 16:59 | PROVIDERS: PCP Family Medicine; Referring Provider Nurse Practitioner Women's Health; Visit Provider Nurse Practitioner Women's Health | DX: O23.40 Unspecified infection of urinary tract in pregnancy, unspecified trimester (principal); Z3A.00 Weeks of gestation of pregnancy not specified | CPT/HCPCS: 87086; 87088 ==

== ENCOUNTER → 2023-06-18 | Outpatient (CLI) | payer OTHER, SELFPAY ==
[2023-06-18 08:11] LABS: Glucose Challenge Gest 1H 50g 91 mg/dL (70-140)
[2023-06-18 08:43] LABS: Absolute Lymphocyte Count 1.47 X10^3/uL (0.83-4.51); Absolute Neutrophil Count 5.5 X10^3/uL (2.0-7.7); Basophil# 0.01 X10^3/uL; Basophil% 0.1 % (0-1); Eosinophil# 0.05 X10^3/uL; Eosinophils% 0.7 % (0-5); Hematocrit 29.9 % (37-47); Hemoglobin 9.1 g/dL (12.0-15.0); Lymphocyte # 1.47 X10^3/ul (0.83-4.51); Lymphocyte % 19.9 % (19-41); Mean Corp Hgb Conc 30.4 g/dL (32-36); Mean Corpuscular Hgb 26.1 pg (27.0-32.0); Mean Corpuscular Volume 85.9 fL (81-99); Mean Platelet Vol. 10.6 fl (6.2-12.0); Monocyte# 0.37 X10^3/uL; NRBC Flagged by Analyzer 0 % (0-5); Neutrophil # 5.47 X10^3/uL (2.7-7.7); Neutrophil % 73.9 % (47-70); Platelet Count 263 K/mm3 (150-450); RBC Distribution Width CV 14.1 % (11.6-14.6); RBC Distribution Width SD 43.8 fl (35.1-43.9); Red Blood Count 3.48 M/mm3 (4.2-5.4); White Blood Count 7.4 K/mm3 (4.4-11.0)
[2023-06-18 09:17] LABS: HIV - WCH Non-Reactive (Nonreactive); Syphilis Antibodies Non-reactive
[2023-06-18 15:51] LABS: Xtra Tube EP Lab EXTRA TUBE
== END | disposition home or self-care (01) ==
PROVIDERS: PCP Family Medicine; Referring Provider Obstetrics & Gynecology; Visit Provider Obstetrics & Gynecology
DX: Z34.92 Encounter for supervision of normal pregnancy, unspecified, second trimester (principal); Z3A.24 24 weeks gestation of pregnancy
CPT/HCPCS: 36415; 82950; 85025; 86703; 86780

== ENCOUNTER → 2023-06-20 | Outpatient (CLI) | payer OTHER, SELFPAY ==
[2023-06-20 08:35] LABS: Iron Binding Capacity,Total 459 ug/dL (250-450)
== END | disposition home or self-care (01) ==
LOC: PAVLAB 06-26 16:15
PROVIDERS: PCP Family Medicine; Referring Provider Obstetrics & Gynecology; Visit Provider Obstetrics & Gynecology
DX: O99.012 Anemia complicating pregnancy, second trimester (principal); Z3A.24 24 weeks gestation of pregnancy
CPT/HCPCS: 36415; 83550

== ENCOUNTER 2023-06-27 09:53 | Outpatient (CLI) | payer OTHER, SELFPAY ==
[2023-06-27 10:04] VITALS: BP 115/53; PULSE 82; RESP 16; TEMP 36.1; O2SAT 100
[2023-06-27] MEDS: 0.9% NaCl IVPB Med Flush (250 mL) 15 ML IV (10:09)
[2023-06-27] MEDS: 0.9% NaCl Peripheral Flush Adult/Peds IV (10:09)
[2023-06-27] MEDS: Iron Sucrose Complex 300 MG in 0.9% Normal Saline (250mL Bag) 250 ML 177 MG IV (10:16)
[2023-06-27 12:35] VITALS: BP 106/50; PULSE 71; RESP 16; TEMP 35.9; O2SAT 98
== END 2023-06-27 09:54 | disposition home or self-care (01) ==
LOC: MEDOUTP 09:57
PROVIDERS: PCP Family Medicine; Referring Provider Obstetrics & Gynecology; Visit Provider Obstetrics & Gynecology
DX: D64.9 Anemia, unspecified (principal)
CPT/HCPCS: 96365; 96366; J1756; J7050; A4216

== ENCOUNTER 2023-07-04 09:26 | Outpatient (CLI) | payer OTHER, SELFPAY ==
[2023-07-04] MEDS: 0.9% NaCl Peripheral Flush Adult/Peds IV (09:44)
[2023-07-04] MEDS: 0.9% NaCl IVPB Med Flush (250 mL) 15 ML IV (09:44)
[2023-07-04] MEDS: Iron Sucrose Complex 300 MG in 0.9% Normal Saline (250mL Bag) 250 ML 177 MG IV (09:45)
[2023-07-04 09:46] VITALS: BP 122/59; PULSE 108; RESP 16; TEMP 36.1; O2SAT 98; BMI 29.7
[2023-07-04 11:32] VITALS: BP 108/54; PULSE 80
== END 2023-07-04 09:27 | disposition home or self-care (01) ==
LOC: MEDOUTP 09:26
PROVIDERS: PCP Family Medicine; Referring Provider Obstetrics & Gynecology; Visit Provider Obstetrics & Gynecology
DX: D64.9 Anemia, unspecified (principal)
CPT/HCPCS: 96365; 96366; J1756; J7050; A4216

== ENCOUNTER → 2023-07-17 | Outpatient (CLI) | payer OTHER, SELFPAY ==
--- NOTE | 2023-07-17 11:30 | US_ITS ---
STUDY: SECOND AND THIRD TRIMESTER OBSTETRICAL ULTRASOUND - LIMITED REASON FOR EXAM: Female, 32 years old growth LMP: PRIOR ULTRASOUND: No pertinent prior examination TECHNIQUE: Transabdominal TECHNICAL QUALITY: Adequate. FINDINGS: There is a single intrauterine fetus. The fetus is in a cephalic presentation. There is demonstrated cardiac activity with a heart rate of 135 bpm. There is a normal amniotic fluid volume. The largest amniotic fluid pocket measures 6.4 cm. The amniotic fluid index (PJ) is 15.8 cm. The placenta is posterior, no previa. The cervix measures 3.8 cm in length. biometry shows a BPD corresponding to 33 weeks 2 days, head circumference 32 weeks 6 days abdominal circumference 34 weeks 0 days femur length 32 weeks 3 days. Mean sonographic estimated gestational age is 32 weeks 5 days with estimated date of delivery 09/06/2023. Estimated weight 2210 g +/-331 g, 93.6% US/OB Limited With Biometrics IMPRESSION: Single live intrauterine gestation with EGA 32 weeks 5 days. Electronically Signed: Emily Aguirre MD at 20:41 EDT Reading Location ID and State: [id number] / Tel , Service support ,
== END | disposition home or self-care (01) ==
LOC: US 11:30
PROVIDERS: PCP Family Medicine; Referring Provider Obstetrics & Gynecology; Visit Provider Obstetrics & Gynecology
DX: O09.90 Supervision of high risk pregnancy, unspecified, unspecified trimester (principal); Z3A.00 Weeks of gestation of pregnancy not specified
CPT/HCPCS: 76816

== ENCOUNTER 2023-07-18 09:21 | Outpatient (CLI) | payer OTHER, SELFPAY ==
[2023-07-18] MEDS: 0.9% NaCl Peripheral Flush Adult/Peds IV (09:29)
[2023-07-18] MEDS: 0.9% NaCl IVPB Med Flush (250 mL) 15 ML IV (09:35)
[2023-07-18 09:36] VITALS: BP 113/68; PULSE 102; RESP 16; TEMP 36.5; O2SAT 97
[2023-07-18] MEDS: Iron Sucrose Complex 300 MG in 0.9% Normal Saline (250mL Bag) 250 ML 177 MG IV (09:51)
[2023-07-18 11:47] VITALS: BP 104/60; PULSE 91; RESP 16; O2SAT 100
== END 2023-07-18 09:22 | disposition home or self-care (01) ==
LOC: MEDOUTP 09:21
PROVIDERS: PCP Family Medicine; Referring Provider Obstetrics & Gynecology; Visit Provider Obstetrics & Gynecology
DX: D64.9 Anemia, unspecified (principal)
CPT/HCPCS: 96365; 96366; J1756; J7050; A4216

== ENCOUNTER → 2023-07-21 | Outpatient (CLI) | payer OTHER, SELFPAY ==
--- NOTE | 2023-07-21 08:54 | ECHOD_ITS ---
Reason For Study: Nonrheumatic MVP Procedure This was a 2D Doppler, Color Flow transthoracic echocardiogram. Exam performed in department. Left Ventricle Normal LV size. Left ventricular systolic function is normal. The estimated ejection fraction is 55 %. No regional wall motion abnormalities noted. Right Ventricle Normal RV size. Normal systolic function. Atria Normal left atrium. Normal right atrium. Mitral Valve Normal mitral valve. Mild (1+) mitral valve insufficiency. Tricuspid Valve Normal tricuspid valve. Mild (1+) tricuspid valve insufficiency. Pulmonary artery systolic pressure is 24 mmHg. Aortic Valve Normal aortic valve. Trisinus/trileaflet aortic valve. Pulmonic Valve Normal pulmonic valve. Trivial pulmonic valve insufficiency. Great Vessels Normal aortic root. The pulmonary artery is normal size. Normal inferior vena cava. Pericardium/Pleural No pericardial effusion. MMode/2D Measurements & Calculations LVIDd: 5.0 cm IVSd: 0.80 cm Ao root diam: 2.6 cm LVIDs: 3.8 cm LVPWd: 0.88 cm LA dimension: 3.5 cm RVDd: 3.8 cm FS: 24.2 % LAV(MOD-bp): 50.8 ml LA A4 area: 17.9 cm2 RA A4 area: 13.9 cm2 LAV(MOD-bp) Indexed: 27.6 ml/m2 LAV(MOD-sp2): 51.8 ml LAV(MOD-sp4): 49.4 ml TAPSE: 1.4 cm Time Measurements MV dec time: 0.13 sec Doppler Measurements & Calculations MV E max uriel: 87.1 cm/sec Lat Peak E' Uriel: 27.3 cm/sec Med Peak E' Uriel: 10.9 cm/sec MV A max uriel: 68.9 cm/sec E/E' lat: 3.2 E/E' med: 8.0 MV E/A: 1.3 MV V2 max: 94.4 cm/sec MV P1/2t max uriel: 94.4 cm/sec Ao V2 max: 141.9 cm/sec MV max P.6 mmHg MV P1/2t: 42.4 msec Ao max P.1 mmHg MV V2 mean: 52.8 cm/sec MV mean P.3 mmHg MV dec slope: 652.1 cm/sec2 MV V2 VTI: 19.6 cm MVA(P1/2t): 5.2 cm2 LV V1 max: 107.6 cm/sec MR max uriel: 510.6 cm/sec PA V2 max: 75.6 cm/sec LV V1 max P.6 mmHg MR max P.3 mmHg LV V1 mean P.8 mmHg MR mean uriel: 403.6 cm/sec LV V1 mean: 78.7 cm/sec MR mean P.3 mmHg LV V1 VTI: 22.8 cm MR VTI: 177.5 cm TR max uriel: 231.1 cm/sec TR max P.4 mmHg ECHO/Echo Complete Interpretation Summary Normal LV size. Left ventricular systolic function is normal. The estimated ejection fraction is 55 %. Mild (1+) mitral valve insufficiency. Structurally normal valves. Ordering Physician: Emeka Malcolm Referring Physician: Chelsea Gutiérrez Performed By: Junaid Alexis RCS
== END | disposition home or self-care (01) ==
LOC: CVS 08:53
PROVIDERS: PCP Family Medicine; Referring Provider Internal Medicine Cardiovascular Disease; Visit Provider Internal Medicine Cardiovascular Disease
DX: I34.1 Nonrheumatic mitral (valve) prolapse (principal); Z87.59 Personal history of other complications of pregnancy, childbirth and the puerperium
CPT/HCPCS: 93225; 93226; 93306

== ENCOUNTER → 2023-08-05 | Outpatient (CLI) | payer OTHER, SELFPAY ==
[2023-08-05 08:02] LABS: Absolute Neutrophil Count 5.3 X10^3/uL (2.0-7.7); Basophil# 0.02 X10^3/uL; Basophil% 0.3 % (0-1); Eosinophil# 0.04 X10^3/uL; Eosinophils% 0.6 % (0-5); Hematocrit 36.1 % (37-47); Lymphocyte % 19.3 % (19-41); Mean Corp Hgb Conc 30.5 g/dL (32-36); Mean Corpuscular Volume 91.9 fL (81-99); Mean Platelet Vol. 10.4 fl (6.2-12.0); Monocyte# 0.42 X10^3/uL; Monocyte% 5.8 % (0-10); NRBC Flagged by Analyzer 0 % (0-5); Neutrophil # 5.31 X10^3/uL (2.7-7.7); Platelet Count 227 K/mm3 (150-450); RBC Distribution Width CV 18.8 % (11.6-14.6); RBC Distribution Width SD 63.1 fl (35.1-43.9); Red Blood Count 3.93 M/mm3 (4.2-5.4); White Blood Count 7.3 K/mm3 (4.4-11.0)
== END | disposition home or self-care (01) ==
LOC: PAVLAB 07:49
PROVIDERS: PCP Family Medicine; Referring Provider Nurse Practitioner Women's Health; Visit Provider Nurse Practitioner Women's Health
DX: D64.9 Anemia, unspecified (principal)
CPT/HCPCS: 36415; 85025

== ENCOUNTER → 2023-08-19 | Outpatient (CLI) | payer OTHER, SELFPAY | END | disposition home or self-care (01) | LOC: LABSPEC 15:34 | PROVIDERS: PCP Family Medicine; Referring Provider Obstetrics & Gynecology; Visit Provider Obstetrics & Gynecology | DX: O09.90 Supervision of high risk pregnancy, unspecified, unspecified trimester (principal); Z3A.00 Weeks of gestation of pregnancy not specified | CPT/HCPCS: 87081 ==

== ENCOUNTER → 2023-08-20 | Outpatient (CLI) | payer OTHER, SELFPAY ==
--- NOTE | 2023-08-20 14:28 | US_ITS ---
EXAM: US , LIMITED CLINICAL INDICATION: well being -- 36 Weeks TECHNIQUE: Real-time limited ultrasound of the maternal uterus with image documentation. COMPARISON: 07/17/2023 FINDINGS: GESTATIONAL AGE: Estimated gestational age: 36 weeks, 3 days. EFW: Estimated weight: 3071 g. BPD: 8.9 cm. HC: 32.2 cm. AC: 33.5 cm. FL: 7.0 cm. POSITION: Cephalic presentation. HEART RATE: heart rate is 130 bpm. PLACENTA: Posterior placenta. AMNIOTIC FLUID: Amniotic fluid volume is 14.5 cm. CERVIX: The cervix is not well visualized. US/OB Limited With Biometrics IMPRESSION: Single viable IUP. No acute findings. Interval growth since prior exam. Electronically Signed: Daquan Larkin DO at 22:19 EST ,
== END | disposition home or self-care (01) ==
LOC: OPUS 14:26
PROVIDERS: PCP Family Medicine; Referring Provider Nurse Practitioner Women's Health; Visit Provider Nurse Practitioner Women's Health
DX: Z34.93 Encounter for supervision of normal pregnancy, unspecified, third trimester (principal); Z3A.36 36 weeks gestation of pregnancy; Z98.891 History of uterine scar from previous surgery
CPT/HCPCS: 76816

== ENCOUNTER 2023-08-23 10:55 | Outpatient (CLI) | payer OTHER, SELFPAY ==
[2023-08-23 11:04] VITALS: BP 131/80; PULSE 110; PULSE 97; TEMP 37.1; O2SAT 98
[2023-08-23 11:08] VITALS: BMI 31.2
--- NOTE | 2023-08-24 08:03 | OB.TRI.PN ---
Progress Notes Date of Service: 08/23/23 Progress Note: Patient presents for triage evaluation secondary to apl syndrome FHT: 140 Moderate variability reactive no decelerations category I tracing [place]: n oregular Contractions Assessment and plan: apl syndrome routine testing Reactive NST, reassuring maternal and status patient discharged to home to follow-up as scheduled. See problem list details for additional plan information. Charges/Coding Procedures Urinary/Genital [id number]: [id number] non-stress test Interp
== END 2023-08-23 11:35 | disposition home or self-care (01) ==
LOC: WPOUT 10:56 → WP 10:56
PROVIDERS: PCP Family Medicine; Referring Provider Obstetrics & Gynecology; Visit Provider Obstetrics & Gynecology
DX: O99.119 Other diseases of the blood and blood-forming organs and certain disorders involving the immune mechanism complicating pregnancy, unspecified trimester (principal); D68.61 Antiphospholipid syndrome; Z3A.00 Weeks of gestation of pregnancy not specified
CPT/HCPCS: 59025; 59050; 99221; G0378

== ENCOUNTER 2023-09-08 05:33 | Inpatient (IN) | payer OTHER, SELFPAY ==
[2023-09-08] VITALS (19 sets, daily range): BP systolic 101–125; BP diastolic 47–75; PULSE 56–103; RESP 13–17; TEMP 36.1–36.6; O2SAT 97–100; BMI 31.4
[2023-09-08] MEDS: Lactated Ringers 1,000 ML 999 ML IV (06:10)
[2023-09-08] MEDS: Acetaminophen 500 MG Tablet 1000 MG PO ×3 (06:17→19:01)
[2023-09-08 06:21] LABS: Absolute Lymphocyte Count 1.96 X10^3/uL (0.83-4.51); Absolute Neutrophil Count 5.5 X10^3/uL (2.0-7.7); Basophil# 0.02 X10^3/uL; Basophil% 0.3 % (0-1); Eosinophil# 0.03 X10^3/uL; Eosinophils% 0.4 % (0-5); Hematocrit 37.7 % (37-47); Hemoglobin 11.6 g/dL (12.0-15.0); Lymphocyte # 1.96 X10^3/ul (0.83-4.51); Lymphocyte % 24.8 % (19-41); Mean Corp Hgb Conc 30.8 g/dL (32-36); Mean Corpuscular Hgb 27.6 pg (27.0-32.0); Mean Corpuscular Volume 89.5 fL (81-99); Mean Platelet Vol. 11.5 fl (6.2-12.0); Monocyte# 0.43 X10^3/uL; Monocyte% 5.4 % (0-10); NRBC Flagged by Analyzer 0 % (0-5); Neutrophil # 5.45 X10^3/uL (2.7-7.7); Neutrophil % 68.8 % (47-70); Platelet Count 191 K/mm3 (150-450); RBC Distribution Width CV 16.5 % (11.6-14.6); RBC Distribution Width SD 54.6 fl (35.1-43.9); Red Blood Count 4.21 M/mm3 (4.2-5.4); White Blood Count 7.9 K/mm3 (4.4-11.0)
[2023-09-08] MEDS: Sodium Citrate/Citric Acid 30 ML UDC PO (07:06)
[2023-09-08] MEDS: Lactated Ringers 1,000 ML 150 ML IV (07:10)
--- NOTE | 2023-09-08 07:16 | HP.PCM.OB_ITS ---
HPI - General General Date of Admission: 09/08/23 HPI Narrative SAVI SHELL, is a 32 y/o @ 39 weeks who presents to L&D for a scheduled repeat section Maternal Data Information EUGENIA Calculator Estimated Delivery Date Method Current WG Current Estimate 09/15/23 LMP (Certain) 39w 0d Other Estimates 09/14/23 Ultrasound #1 39w 1d PFSH PFSH Medical History (Updated 09/08/23 @ 06:16 by Ros Stone) Anemia Chorioamnionitis Contact with or suspected exposure to other viral communicable disease Gastrointestinal problem Head and face pain Heart disease Heart valve problem IBS (irritable bowel syndrome) Migraines Mitral valve prolapse Murmur hemorrhage Segmental and somatic dysfunction of cervical region Segmental and somatic dysfunction of lumbar region Segmental and somatic dysfunction of pelvic region Segmental and somatic dysfunction of thoracic region TMJ dysfunction Tricuspid valve prolapse Vitamin deficiency Home Medications enoxaparin 40 mg/0.4 mL subcutaneous syringe (Lovenox) 40 mg (0.4 mL) subcut QDAY antiphospholipid syndrome 30 days #12 mL 01/20/23 [Rx Last Taken 09/06/23 20:00] aspirin 81 mg tablet,delayed release (Adult Aspirin Regimen) 81 mg PO DAILY antiphospholipid syndrome 02/06/23 [History Last Taken 09/04/23 20:00] cholecalciferol (vitamin D3) 50 mcg (2,000 unit) capsule 50 mcg PO DAILY pt hx 02/06/23 [History Last Taken 09/07/23 20:00] magnesium 250 mg tablet 500 mg PO DAILY pt reports taking 02/06/23 [History Last Taken 09/07/23 20:00] vitamins no.163-iron bis-gly 20 mg-folate no.10 1 mg tablet (PNV Tabs 20-1) 1 tab PO DAILY 02/06/23 [History Last Taken 09/07/23 20:00] certolizumab pegol 400 mg/2 mL (200 mg/mL x2) subcutaneous syringe kit (Cimzia) 400 mg subcut Q4W pt hx 06/16/23 [History Last Taken 08/24/23 20:00] famotidine 20 mg tablet (Pepcid) 20 mg PO BID heartburn 06/16/23 [History Last Taken 09/06/23] Allergy/AdvReac Type Severity Reaction Status Date / Time No Known Allergies Allergy Verified 09/08/23 05:48 Family History Father Multiple myeloma Mother Mitral valve prolapse Myopathy Hyperlipidemia Surgical History (Updated 09/08/23 @ 06:16 by Ros Stone) History of History of hip surgery Hx of tonsillectomy S/P colonoscopy Social History adopted: No household members: spouse and children number of children: 1 current occupational status: employed current occupation: [employer] current occupational exposures/hazards: No pets and animals: Yes (Not managing litterbox) pets and animals: cat(s) and dog(s) history of recent travel: No sexually active: Yes Smoking Status: Never smoker alcohol intake: current details: occasionally glass of wine - Not while substance use type: does not use well-balanced diet: daily or most days caffeine: Yes eating out: 1-3 times/week during the past year weight has: remained stable what type of physical activity do you participate in: none davon/anabaptism: Scientologist seatbelt use: always do you feel safe at home: Yes additional social history: - Rubin History 4 Elective abortions Hx Para 1 Spontaneous abortions 2 Hx # Term Pregnancies Ectopic pregnancies Hx # Pregnancies Multiple births # of living children 1 Past Pregnancies Del. Date Name GA/Weeks Outcome Route Bth Weight Gen Labor Lgth Anesthesia Del Locatn Provider FOB 04/19/18 Derek 22 still Male [facility] Dr. Jorje Conklin 06/09/20 Lillian 37 live - full term 8lbs Female [facility] Dr. Jorje Conklin Delivery Date: 04/19/18 Last Updated by: Alysa Covington hydrops with cystic hygroma Delivery Date: 06/09/20 Last Updated by: Alysa Covington Head down, face up, uterine infection. Fully dilated but was unable to deliver-delivered csection. Visit Details Expected Delivery Route/Plan h/o section and one prior vaginal delivery. will discuss . plan RLTCS with JV Plans Covid status: initial 2 vax Flu vaccine: w/employer Tdap vaccine: given Rhogam: NA LARC form signed: yes movement and labor precautions reviewed. Problem list reviewed and updated with the most current plan of care details and appropriate orders placed. Relevant counseling for the gestational age provided. Continue routine care and follow up unless otherwise noted in visit notes/problem list details OB Flowsheet Initial Weight: Not Recorded Date -?-?-?-?-?-?-?-?-?-?-?-?- EGA Weight BP Urine Prot -?-?-?-?-?-?-?-?-?-?-?-?- Glucose FHR FuHt Pres Dilation -?-?-?-?-?-?-?-?-?-?-?-?- Effaced St Visit Note 02/06/23 -?-?-?-?-?-?-?-?-?-?-?-?- 8w 3d 161 lb 8 oz 123/77 -?-?-?-?-?-?-?-?-?-?-?-?- 174 -?-?-?-?-?-?-?-?-?-?-?-?- JV- CRL consiste nt with LMP. EUGENIA 09/15/23. NIPT ordered. h/o cystic hygroma last . 02/21/23 -?-?-?-?-?-?-?-?-?-?-?-?- 10w 4d 160 lb 8 oz 122/74 Nega tive -?-?-?-?-?-?-?-?-?-?-?-?- Negative 155 -?-?-?-?-?-?-?-?-?-?-?-?- LC- no vb/crampi ng. here for FHR check. will obtain nob labs next week. 03/07/23 -?-?-?-?-?-?-?-?-?-?-?-?- 12w 4d 160 lb 8 oz 126/75 Nega tive -?-?-?-?-?-?-?-?-?-?-?-?- Negative 152 -?-?-?-?-?-?-?-?-?-?-?-?- JV- normal NIPT and PRR. on lovenox and baby asa. going to [place] tomorrow. discussion about NT ultrasound today. 04/04/23 -?-?-?-?-?-?-?-?-?-?-?-?- 16w 4d 162 lb 4 oz 128/70 Nega tive -?-?-?-?-?-?-?-?-?-?-?-?- Negative 158 -?-?-?-?-?-?-?-?-?-?-?-?- KW-no vb/crampin lara DARBY at end of month. AFP discussed. having some dizziness at times-hydration and compression hose encouraged. 05/02/23 -?-?-?-?-?-?-?-?-?-?-?-?- 20w 4d 163 lb 8 oz 131/73 Nega tive -?-?-?-?-?-?-?-?-?-?-?-?- Negative 149 24 -?-?-?-?-?-?-?-?-?-?-?-?- JV- no lof, vagi nal bleeding, or cramping. has echo pending and appt with Dr. nichole. 05/29/23 -?-?-?-?-?-?-?-?-?-?-?-?- 24w 3d 168 lb 6 oz 128/75 -?-?-?-?-?-?-?-?-?-?-?-?- 126 26 -?-?-?-?-?-?-?-?-?-?-?-?- JV- having urina ry frequency. urine dip is neg today. no residual urine in bladder on scan but baby's head is very close to the bladder. pt reassured. there were trace ketones. increase fluids 06/26/23 -?-?-?-?-?-?-?-?-?-?-?-?- 28w 3d 174 lb 2 oz 121/72 Nega tive -?-?-?-?-?-?-?-?-?-?-?-?- Negative 134 29 -?-?-?-?-?-?-?-?-?-?-?-?- JV- Pt was seen by cardiology and was told has a murmur. holter monitor ordered. She is wearing compression stockings for some dizziness when changes positions. normal gct. getting iron infusion next week. wants to still consider as long as dilated at 39 weeks. Recommend delivery at 39 weeks 07/09/23 -?-?-?-?-?-?-?-?-?-?-?-?- 30w 2d 174 lb 4 oz 122/68 Nega tive -?-?-?-?-?-?-?-?-?-?-?-?- Negative 141 31 -?-?-?-?-?-?-?-?-?-?-?-?- MH-No VB, LOF. G ood FM. Growth US next week. Larc 07/23/23 -?-?-?-?-?-?-?-?-?-?-?-?- 32w 2d 177 lb 2 oz 118/82 Nega tive -?-?-?-?-?-?-?-?-?-?-?-?- Negative 151 33 -?-?-?-?-?-?-?-?-?-?-?-?- MH-No VB, LOF. G ood FM. Recent US 93%. Rpt at 36 wk. Will get repeat CBC prior to next visit 08/05/23 -?-?-?-?-?-?-?-?-?-?-?-?- 34w 1d 180 lb 124/73 Negative -?-?-?-?-?-?-?-?-?-?-?-?- Negative 134 34 -?-?-?-?-?-?-?-?-?-?-?-?- JV- JV- no lof, vaginal bleeding , or dec fm. submitted request for rpt cs if labor does not happen. she also wants a tubal. next growth scan is just before th anksgiving. 08/19/23 -?-?-?-?-?-?-?-?-?-?-?-?- 36w 1d 182 lb 4 oz 125/75 Nega tive -?-?-?-?-?-?-?-?-?-?-?-?- Negative 140 35 Cephalic -?-?-?-?-?-?-?-?-?-?-?-?- JV - no lof, vag inal bleeding, or dec fm. has some round ligament pains from time to time. growth scan tomorrow. rpt section on 09/08/23 at 7:15 JV - no lof, vaginal bleedin g, or dec fm. has some round ligament pains from time to time. growth scan tomorrow. rpt section on 09/08/23 at 7:15. NST reactive. will come to L&D for nst on friday, then Mondays and until delivery. 08/25/23 -?-?-?-?-?-?-?-?-?-?-?-?- 37w 0d 183 lb 2 oz 122/64 Nega tive -?-?-?-?-?-?-?-?-?-?-?-?- Negative 125 -?--?-?-?-?-?-?-?-?-?-?-?- LC- NST only. no concerns. 08/28/23 -?-?-?-?-?-?-?-?-?-?-?-?- 37w 3d 181 lb 122/78 Negative -?-?-?-?-?-?-?-?-?-?-?-?- Negative 140 37 Cephalic -?-?-?-?-?-?-?-?-?-?-?-?- SM- no vb lof go od fm no regular ctx 09/01/23 -?-?-?-?-?-?-?-?-?-?-?-?- 38w 0d 183 lb 110/74 Negative -?-?-?-?-?-?-?-?-?-?-?-?- Negative 140 -?-?-?-?-?-?-?-?-?-?-?-?- MH-NST only. Emmanuelle y active today. 09/03/23 -?-?-?-?-?-?-?-?-?-?-?-?- 38w 2d 184 lb 116/75 Negative -?-?-?-?-?-?-?-?-?-?-?-?- Negative 120 -?-?-?-?-?-?-?-?-?-?-?-?- JV- reactive NST today. consent signed for rpt section and tubal. ROS Constitutional Constitutional: Denies change in weight, fatigue, fever(s), headache(s), poor appetite or weakness Eyes Eyes: Denies blurry vision, change in vision, seeing flashes or spots in vision ENT HEENT: Denies dizziness, headache(s), loss taste/smell or sore throat Cardiovascular Cardiovascular: Denies chest pain, dizziness, dyspnea, irregular heart rhythm, leg edema, palpitations, rapid heart rate or vomiting Respiratory/Chest Respiratory/Chest: Denies chest tightness, cough, dyspnea or breast pain Gastrointestinal Gastrointestinal: Denies abdominal pain, anorexia, constipation, cramping, diarrhea, hemorrhoids, vomiting or weight changes Genitourinary Genitourinary: Denies dysuria, flank pain, genital lesions, genital pain, urinary frequency or urinary urgency Musculoskeletal Musculoskeletal: Denies back pain, difficulty walking, joint pain, limited range of motion, muscle cramps or numbness Integumentary Integumentary: Denies lesions or unusual bruising Neurologic Neurologic: Denies abnormal movements, abnormal speech, dizziness, numbness, seizure-like activity or syncope Psychiatric Psychiatric: Denies anxiety, behavioral changes, change in appetite, change in libido, cognitive impairment, confusion, depression, difficulty concentrating, hallucinations or suicidal thoughts Endocrine Endocrinology: Denies excessive sweating, polydipsia or polyuria Hematologic/Lymphatic Hematologic/Lymphatic: Denies easy bleeding, easy bruising or lymphadenopathy Allergic/Immunologic Allergic/Immunologic: Denies itchy eyes, lip swelling, seasonal rhinorrhea, rhinitis, throat swelling, tongue swelling, eczemia, wheezing or asthma Vital Signs Vital Signs Vital Signs: 09/08/23 05:52 09/08/23 05:52 09/08/23 05:49 Temperature Temperature Source Temporal Pulse Rate 103 H Respiratory Rate Blood Pressure 125/75 H Blood Pressure Mean BP Systolic 125 BP Diastolic 75 Blood Pressure Source Blood Pressure Position Blood Pressure Location Pulse Ox Oxygen Delivery Method 09/08/23 05:49 09/08/23 06:27 Temperature 97.0 F L 97.0 F L Temperature Source Temporal Pulse Rate 103 H Respiratory Rate 17 Blood Pressure 125/75 H Blood Pressure Mean 91 BP Systolic BP Diastolic Blood Pressure Source Monitor Blood Pressure Position Semi-Fowlers Blood Pressure Location Left Arm Pulse Ox 99 Oxygen Delivery Method Room Air Weight Weight: 182 lb 12.8 oz Body Mass Index (BMI) 31.4 Physical Exam Const alert, oriented x3, no apparent distress and healthy appearing General Appearance: cooperative; Negative for anxious HEENT normocephalic Face and Sinus: normal facial exam Eyes EOMs intact bilaterally and no scleral icterus General Eye: normal appearance of both eyes Neck full ROM and supple Lymph Lymphatic: no lymphadenopathy noted Chest Chest: abnormal inspection of the chest Resp normal respiratory effort Effort and Inspection: able to speak in complete sentences GI soft to palpation and non-tender Inspection: gravid Palpation: soft; Negative for tender Back/Spine no CVA tenderness Extremity normal to inspection, full ROM and no clubbing, cyanosis or edema General Extremity: Negative for calf tenderness or edema Skin Lesions: no lesions Rashes: no rashes Psych mental status grossly normal Labs Labs Labs: Blood Type A POSITIVE Antibody Screen NEGATIVE Hct 37.7 % (37-47) Hgb 11.6 g/dL (12.0-15.0) L Pap Smear Negative Obstetrics Ultrasound Syphilis Total Ab Non-reactive Rubella IgG Antibody Reactive (Nonreactive) Hep Bs Antigen Non-Reactive (Nonreactive) Hepatitis C Antibody Non-Reactive (Nonreactive) Chlamydia DNA (KAYE) Negative (Negative) N.gonorrhoeae DNA (KAYE) Negative (Negative) HIV 1&2 Antibody Non-Reactive (Nonreactive) Glucose 1 Hr 50 gm 91 mg/dL (70-140) Rhogam given: No Miscellaneous Test Assessment & Plan (1) Request for sterilization: (2) Shortness of breath: (3) Palpitations: (4) History of loss: COMMENT: First demise at 22 weeks-cystic hygroma (5) Supervision of high-risk : QUALIFIERS: Trimester: third trimester Qualified Code(s): O09.93 - Supervision of high risk , unspecified, third trimester COMMENT: PRR , EUGENIA , boy JOVANY Reed(22 wk demise), Lillian, Rubin (6) : QUALIFIERS: Weeks of gestation: 38 weeks Qualified Code(s): Z3A.38 - 38 weeks gestation of COMMENT: GBS neg, NIPT low risk, discussed carrier testing. nl anatomy (7) Antiphospholipid antibody syndrome: COMMENT: lovenox and asa started 01/20/23-currently . deliver 39 weeks twice weekly nsts (8) Anticardiolipin antibody positive: (9) Bilateral sacroiliitis: (10) History of section: COMMENT: repeat section scheduled for 09/08/23 at 7:15 w/JV (11) Ankylosing spondylitis: (12) Scoliosis of lumbar spine: QUALIFIERS: Scoliosis type: idiopathic Idiopathic scoliosis type: other Qualified Code(s): M41.26 - Other idiopathic scoliosis, lumbar region (13) Anemia: QUALIFIERS: Anemia type: iron deficiency Iron deficiency anemia type: unspecified iron deficiency Qualified Code(s): D50.9 - Iron deficiency anemia, unspecified COMMENT: TIBC, Iron infusions wkly x 3; CBC wnl (14) Segmental and somatic dysfunction of thoracic region: (15) Segmental and somatic dysfunction of pelvic region: (16) Segmental and somatic dysfunction of lumbar region: (17) Segmental and somatic dysfunction of cervical region: (18) Mitral valve prolapse: (19) TMJ dysfunction: PLAN: Plan After discussing the patient's diagnosis and treatment plan options, patient wishes to proceed with surgical management. I have discussed with the patient the risks, benefits, and alternatives of the procedure which include but are not limited to risks of anesthesia, bleeding, infection, possible damage to bowel, bladder, or surrounding vasculature which could lead to additional surgery to e valuate any complications. Patient agrees to procedure and wishes to proceed with a repeat section.
[2023-09-08] MEDS: Cefazolin 2 GM in 0.9% Normal Saline (100mL Bag) 100 ML IV (07:21)
--- NOTE | 2023-09-08 08:02 | FALS_PTH ---
PATIENT: DOROTHY SHELL LOC: WP U#:[id number] AGE/SX: 32/F ROOM: WP006 RE09/08/[address]: Dr. Ruth Becker DO : 1990 BED: 1 DIS: 09/09/2023 SPEC #: [id number] RECD: 09/08/23 11:11 STATUS: MIKE SHIRA #: [id number] LESA: 09/08/23 08:[address]: Ruth Becker DEPT: SURGICAL PATHOLOGY RECD BY: Dorothy Potter ENTERED: 09/08/23 11:11 SP TYPE: FALL TUBES OTHR DR: Dr. Chelsea Gutiérrez DO Tissues: Fallopian tube Procedures: Surgery Specimen Level IV HEADER OPERATION: Tubal ligation PRE-OP DIAGNOSIS: Sterilization TISSUE SUBMITTED: Fallopian tubes, tie on right MICROSCOPIC DIAGNOSIS Right fallopian tube, salpingectomy: Benign paratubal cysts. Complete cross-section of fallopian tube. Left fallopian tube, salpingectomy: Benign paratubal cysts. Complete cross-section of fallopian tube. AM:sheila 09/09/2023 MICROSCOPIC DESCRIPTION Slides are reviewed. GROSS DESCRIPTION Received in fixative is one container labeled with the patient's name and designated bilateral fallopian tubes, tie on right. The specimen consists of bilateral fallopian tubes including fimbrial ends. The right fallopian tube measures 8.0 cm in length and up to 1.0 cm in diameter and left fallopian tube measures 7.0 cm in length and up to 0.9 cm in diameter. Sections reveal unremarkable cut surfaces. Vinyl Dipper sections are submitted in two cassettes as follows: 1 - right fallopian tube, 2 - left fallopian tube. / SJ:sheila 09/08/2023 TC: CPT: 81601 x2
[2023-09-08] MEDS: Oxytocin 15 Units/NS 250ml 15 UNITS/250 ML IV.SOLN 83 UNITS IV (08:52)
[2023-09-08] MEDS: Methylergonovine 0.2 MG/ML Ampul IM (09:00)
[2023-09-08 09:05] LABS: Syphilis Antibodies Non-reactive
--- NOTE | 2023-09-08 09:23 | NURSING ---
0850-expressed almost egg size clot w fundal message.
[2023-09-08] MEDS: Ketorolac 30 MG/ML Syringe IV ×3 (09:43→20:47)
[2023-09-08 10:49] LABS: Pathology Specimen OB SEE PATHOLOGY REPORT
--- NOTE | 2023-09-08 11:00 | NURSING ---
[id number] exp 07/23/2027
--- NOTE | 2023-09-08 11:10 | EX.PCM.OBRPT ---
Assessment & Plan (1) Request for sterilization: (2) Contraception management: QUALIFIERS: Contraceptive encounter type: other general counseling and advice Qualified Code(s): Z30.09 - Encounter for other general counseling and advice on contraception COMMENT: Wants BS if CS (3) Shortness of breath: (4) Palpitations: (5) History of loss: COMMENT: First demise at 22 weeks-cystic hygroma (6) Supervision of high-risk : QUALIFIERS: Trimester: third trimester Qualified Code(s): O09.93 - Supervision of high risk , unspecified, third trimester COMMENT: PRR , EUGENIA , boy JOVANY Reed(22 wk demise), Lillian, Rubin (7) : QUALIFIERS: Weeks of gestation: 38 weeks Qualified Code(s): Z3A.38 - 38 weeks gestation of COMMENT: GBS neg, NIPT low risk, discussed carrier testing. nl anatomy (8) Antiphospholipid antibody syndrome: COMMENT: lovenox and asa started 01/20/23-currently . deliver 39 weeks twice weekly nsts (9) Anticardiolipin antibody positive: (10) Bilateral sacroiliitis: (11) History of section: COMMENT: repeat section scheduled for 09/08/23 at 7:15 w/JV (12) Ankylosing spondylitis: (13) Scoliosis of lumbar spine: QUALIFIERS: Scoliosis type: idiopathic Idiopathic scoliosis type: other Qualified Code(s): M41.26 - Other idiopathic scoliosis, lumbar region (14) Anemia: QUALIFIERS: Anemia type: iron deficiency Iron deficiency anemia type: unspecified iron deficiency Qualified Code(s): D50.9 - Iron deficiency anemia, unspecified COMMENT: TIBC, Iron infusions wkly x 3; CBC wnl (15) Mitral valve prolapse: Maternal Data Information EUGENIA Calculator Estimated Delivery Date Method Current WG Current Estimate 09/15/23 LMP (Certain) 39w 0d Other Estimates 09/14/23 Ultrasound #1 39w 1d Details Operative Information Date of Procedure: 09/08/23 Pre-Operative Diagnosis: 32 y/o @ 39 weeks, prior section, antiphospholipid antibody syndrome Post-Operative Diagnosis: 32 y/o @ 39 weeks, prior section, antiphospholipid antibody syndrome Indications for : Repeat Elective Classification: Scheduled Procedure Type: low transverse Type of Anesthesia: Spinal Anesthesiologist: Jaime Gross Antibiotic Given: Ancef 2 grams IV x1 Estimated Blood Loss: 600cc Procedure Start Time: 07:49 Time of Delivery: 08:35 Findings Description of Procedure: Procedure: The patient was brought to the operating room where spinal anesthesia was found to be adequate. She was prepped and draped in the normal sterile fashion and was placed in a dorsal supine position with a leftward tilt. Pfannenstiel skin incision was made with a scalpel and carried through to the underlying layers. The fascia was nicked in the midline and extended laterally using Etienne scissors. The anterior aspect of the fascia was grasped with Katey clamps and the underlying rectus muscles dissected off using the Metzenbaum scissors. The inferior aspect the fascia was also grasped with Katey clamps and the underlying rectus muscle dissected off with the Metzenbaum scissors. The rectus muscles were in the midline. Peritoneum was entered sharply. The uterus was identified and a bladder blade was inserted into the abdomen. Bladder flap was created off the uterus using Metzenbaum scissors. A transverse incision was made with a scalpel and extended laterally manually. The 's head was grasped with the help of my historian research assistant and fundal pressure the infant was delivered through the uterine incision without difficulty. The mouth and nares were bulb suctioned. After a 30 second delay the cord was clamped and cut. The infant was handed off to the awaiting cardiology specialist for routine assessment. Placenta was delivered manually without difficulty. The uterus was exteriorized and cleared of all clots and debris. Incision was closed with an 0 Vicryl suture in a running locked fashion. Second layer of 1-0 monocryl suture was used in imbricating manner to create excellent closure and hemostasis. The right tube was grasped with a Shoals clamp and the underlying mesosalpinx was cauterized and cut with the ligasure device removing the entire tube and fimbriated end. The same procedure was performed on the opposite side. Both fallopian tubes were passed off for pathology analysis. The uterus was returned to the abdomen. The gutters were cleared of all clots and debris. The peritoneum was closed in a pursestring pattern using a 3-0 Vicryl suture. This muscle was reapproximated with a 3-0 Vicryl. The fascia was closed with an PDS stratafix suture. Subcutaneous tissue layer was closed using a plain gut suture. The skin was closed with a 4-0 Monocryl subcuticular stitch. The skin was also sealed with surgical glue. The patient tolerated the procedure well sponge lap and needle counts were correct at each tissue closure plane and the patient is now being brought to the recovery room in stable condition Presentation: Positive for Vertex Amniotic Fluid Description: Clear Placental Delivery Description: Manual Removal Placenta Disposition: [facility] Cord Vessel Description: 3 Vessels Cord Entanglement: None A Gender: Male (1 minute): 9 (5 minute): 9 Delayed Cord Clamping: Yes Complications Risks of Surgery Discussed w/Patient: Bleeding, Anesthesia Risks, Infection, Need for Future C-Sections, Permanency, Failure Rate of 1 to 2%, Injury to surrounding structure(s) including bowel and bladder and Availability of other non-permanent control options Complications: none Multi Select Codes Urinary/Genital Urinary/Genital CPT Codes: 92879 delivery only
[2023-09-08] MEDS: Lactated Ringers 1,000 ML 100 ML IV (12:01)
[2023-09-08] MEDS: LACTATED RINGERS 500 ML 999 ML IV (12:07)
[2023-09-08] MEDS: Ondansetron 4 MG/2 ML Vial IV (12:20)
[2023-09-08] MEDS: Enoxaparin 40 MG/0.4 ML Syringe SC (20:48)
[2023-09-09] VITALS: BP 105/58; PULSE 85; RESP 17; TEMP 36.4; O2SAT 100
[2023-09-09] MEDS: Acetaminophen 500 MG Tablet 1000 MG PO ×3 (00:03→13:50)
--- NOTE | 2023-09-09 00:26 | NURSING ---
lulu JAIN on unit, notified of pt unsteady gait, catheter still in place due to needing full assist with ambulation. provider okay to keep catheter in place for a few more hours and reassess for removal.
[2023-09-09] MEDS: Ketorolac 30 MG/ML Syringe IV (03:24)
[2023-09-09] MEDS: 0.9% Saline Lock 10 ML Syringe IV ×3 (03:25→11:27)
[2023-09-09 03:51] VITALS: BP 106/59; PULSE 69; RESP 15; TEMP 36.4; O2SAT 98
[2023-09-09 06:35] LABS: Hematocrit 32.4 % (37-47); Hemoglobin 9.9 g/dL (12.0-15.0); Mean Corp Hgb Conc 30.6 g/dL (32-36); Mean Corpuscular Hgb 27.4 pg (27.0-32.0); Mean Corpuscular Volume 89.8 fL (81-99); Mean Platelet Vol. 11.2 fl (6.2-12.0); Platelet Count 161 K/mm3 (150-450); RBC Distribution Width CV 16.7 % (11.6-14.6); RBC Distribution Width SD 55.1 fl (35.1-43.9); Red Blood Count 3.61 M/mm3 (4.2-5.4); White Blood Count 9.3 K/mm3 (4.4-11.0)
--- NOTE | 2023-09-09 08:28 | PCM.PN.OB ---
Subjective Subjective Patient doing well without complaints. Tolerating PO. Ambulating and voiding without difficulty. Feeding well. Reports slight headache and lightheadedness. Denies chest pain, shortness of breath, calf pain/swelling, fevers, chills. Objective Data Objective Data Vital Signs: Vital Signs Temp Pulse Resp BP Pulse Ox O2 Del Method 97.6 F L 69 15 106/59 L 98 Room Air 09/09/23 03:51 09/09/23 03:51 09/09/23 03:51 09/09/23 03:51 09/09/23 03:51 09/09/23 03:51 Oxygen Delivery Method Room Air Weight: 182 lb 12.8 oz Body Mass Index (BMI) 31.4 Intake & Output: Intake and Output for Last 24 Hours 09/07/23 09/08/23 09/09/23 23:59 23:59 23:59 Intake Total 3174.17 / 3174.17 Output Total 1973 800 / 800 Balance 1200.17 / 1200.17 -800 / -800 Lab / Micro Data Attestation: I reviewed the patient's lab results. 09/09/23 06:15 Labs: Laboratory Results - last 24 hr 09/08/23 06:10: Syphilis Total Ab Non-reactive, Blood Type A POSITIVE, Antibody Screen NEGATIVE 09/09/23 06:15: WBC 9.3, RBC 3.61 L, Hgb 9.9 L, Hct 32.4 L, MCV 89.8, MCH 27.4, MCHC 30.6 L, RDW Std Deviation 55.1 H, RDW Coeff of Laury 16.7 H, Plt Count 161, MPV 11.2 ROS Constitutional Constitutional: Reports systems reviewed and no addt'l complaints, except as documented; Denies anorexia or headache(s) Cardiovascular Cardiovascular: Reports systems reviewed and no addt'l complaints, except as documented; Denies dizziness, dyspnea, nausea or tachypnea Respiratory/Chest Respiratory/Chest: Reports systems reviewed and no addt'l complaints, except as documented; Denies cough, dyspnea, shortness of breath at rest or tachypnea Gastrointestinal Gastrointestinal: Reports systems reviewed and no addt'l complaints, except as documented; Denies abdominal pain, constipation or nausea Genitourinary Genitourinary: Reports systems reviewed and no addt'l complaints, except as documented; Denies burning urination, difficulty urinating, dysuria, urinary frequency or urinary incontinence Musculoskeletal Musculoskeletal: Reports systems reviewed and no addt'l complaints, except as documented Integumentary Integumentary: Reports systems reviewed and no addt'l complaints, except as documented Neurologic Neurologic: Reports systems reviewed and no addt'l complaints, except as documented; Denies abnormal speech, dizziness or headache(s) Psychiatric Psychiatric: Reports systems reviewed and no addt'l complaints, except as documented Endocrine Endocrinology: Reports systems reviewed and no addt'l complaints, except as documented Hematologic/Lymphatic Hematologic/Lymphatic: Reports systems reviewed and no addt'l complaints, except as documented Physical Exam Const alert, oriented x3 and no apparent distress Neck full ROM Resp normal respiratory effort, normal air movement and no retractions Effort and Inspection: able to speak in complete sentences and symmetric chest movement GI soft to palpation Inspection: incision intact Bladder / Kidney Exam: bladder normal to palpation Uterus Palpation: uterus fundus firm Extremity normal to inspection and full ROM Psych mental status grossly normal, thought process normal and cooperative Assessment & Plan (1) Shortness of breath: (2) Supervision of high-risk : QUALIFIERS: Trimester: third trimester Qualified Code(s): O09.93 - Supervision of high risk , unspecified, third trimester COMMENT: PRR , EUGENIA , boy JOVANY Reed(22 wk demise), Lillian, Rubin (3) : QUALIFIERS: Weeks of gestation: 38 weeks Qualified Code(s): Z3A.38 - 38 weeks gestation of COMMENT: GBS neg, NIPT low risk, discussed carrier testing. nl anatomy (4) Antiphospholipid antibody syndrome: COMMENT: lovenox and asa started 01/20/23-currently . deliver 39 weeks twice weekly nsts (5) History of section: COMMENT: repeat section scheduled for 09/08/23 at 7:15 w/JV PLAN: s/p LTCS PPD # 1 1. routine post care 2. formula feeding- support given 3. rh positive 4. rubella immune 5. IV Venofer x 1 dose Charges/Coding Multi Select Codes Urinary/Genital Urinary/Genital CPT Codes: No Charge
[2023-09-09 08:41] VITALS: BP 119/57; PULSE 76; RESP 16; TEMP 36.4; O2SAT 98
[2023-09-09] MEDS: Iron Sucrose Complex 300 MG in 0.9% Normal Saline (250mL Bag) 250 ML 176.7 MG IV (09:25)
[2023-09-09] MEDS: Senna/Docusate Sodium 1 Tablet PO (11:26)
[2023-09-09] MEDS: Naproxen 500 MG Tablet PO (11:26)
[2023-09-09 13:55] VITALS: BP 116/54; PULSE 87; RESP 18; TEMP 36.1; O2SAT 99
--- NOTE | 2023-09-09 16:26 | DCINST_ITS ---
Discharge Instructions Diet Discharge Diet: No restrictions Activity Discharge Activity: Return to Normal Activity May resume sexual activity in: 6-8 weeks Dressing / Incision Call your doctor if you observe: Fever of 101 or Higher, Coldness, Increased Pain, Numbness or Tingling, Change in Color, Inability to urinate, Inability to have a bowel movement, Using more than 1 pad per hour, Shortness of breath, Dizziness, Fainting spells, Swelling in the ankles, Chest pain, Increased palpitations (irregular heartbeat), Calf discomfort and Uncontrolled pain Follow Up Care Please Follow Up With: Jalyn Sheffield CNM When: Please call the office to schedule your follow up appointment in 6 weeks. If you had high blood pressure please call to schedule an appointment in 2 weeks. Test Results: Test results from this visit will be discussed in further detail at your follow- up appointment, if applicable. Discharge Plan Admission Admit Date/Time: 09/08/23 05:33 Attending Provider: Ruth Becker Primary Care Provider: Chelsea Gutiérrez Discharge Orders/Prescriptions Prescriptions: New oxycodone 5 mg Tablet 5 mg PO Q4H PRN PRN (Reason: Pain Score 4-10) 3 Days Qty: 10 0RF No Action magnesium 250 mg tablet 500 mg PO DAILY aspirin [Adult Aspirin Regimen] 81 mg tablet,delayed release (DR/EC) 81 mg PO DAILY cholecalciferol (vitamin D3) 50 mcg (2,000 unit) capsule 50 mcg PO DAILY PNV Tabs 20-1 20 mg iron- 1 mg tablet 1 tab PO DAILY Cimzia 400 mg/2 mL (200 mg/mL x 2) syringe kit 400 mg subcut Q4W famotidine [Pepcid] 20 mg tablet 20 mg PO BID enoxaparin [Lovenox] 40 mg/0.4 mL syringe 40 mg subcut QDAY 30 Days Qty: 12 12RF Referrals / Follow Up: Chelsea Gutiérrez DO [Primary Care Provider] - Disposition Disposition (needs filled in before D/C Order can be placed): Home, Self Care
== END 2023-09-09 17:50 | disposition home or self-care (01) | DRG 784 ==
PROVIDERS: Obstetrics & Gynecology; Admitting Provider Obstetrics & Gynecology; PCP Family Medicine; Visit Provider Obstetrics & Gynecology
PROC: (CPT 59514; principal; 2023-09-08 07:15)
DX: O34.211 Maternal care for low transverse scar from previous cesarean delivery (principal); O99.12 Other diseases of the blood and blood-forming organs and certain disorders involving the immune mechanism complicating childbirth; D68.61 Antiphospholipid syndrome; M45.9 Ankylosing spondylitis of unspecified sites in spine; D50.9 Iron deficiency anemia, unspecified; Z37.0 Single live birth; O99.892 Other specified diseases and conditions complicating childbirth; Z30.2 Encounter for sterilization; Z3A.39 39 weeks gestation of pregnancy; Z79.82 Long term (current) use of aspirin; Z79.01 Long term (current) use of anticoagulants; Z79.899 Other long term (current) drug therapy; O99.02 Anemia complicating childbirth
CPT/HCPCS: 59025; 59050; 85025; 85027; 86780; 86850; 86900; 86901; 88302; 88305; 99221; J1756; J7050; J7120; A4216; G0378; J2405

== ENCOUNTER → 2023-10-01 | Outpatient (CLI) | payer OTHER, SELFPAY ==
--- OUTSIDE RECORDS SUMMARY | 2023-10-01 17:12 | XMS RPT_ITS | CCD ---
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 Name Role Phone Chelsea Gutiérrez DO Primary Care Provider MARINE OBREGON Attending Unavailable CARA GUTIÉRREZA A Primary Care Unavailable MARINE OBREGON Attending Unavailable CARA GUTIÉRREZA A Primary Care Unavailable CARA GUTIÉRREZA A Primary Care Unavailable MARINE OBREGON Attending Unavailable Chelsea Gutiérrez DO Primary Care Provider KAREN CARMEN Referring Unavailab le NO PRIMARY CARE, Primary Care Unavailable GALE PINEDO Attending Unavailable KAREN CARMEN Referring Unavailab le NO PRIMARY CARE, Primary Care Unavailable GALE PINEDO Attending Unavailable KAREN CARMEN Referring Unavailab le NO PRIMARY CARE, Primary Care Unavailable GALE PINEDO Attending Unavailable DINO PADRON Attending Unavailable GIOYS, CHELSEA A Primary Care Unavailable GALE PINEDO Referring Unavailable MALYS, CHELSEA A Primary Care Unavailable TRONCOSO, ENMA Attending Unavailable TRONCOSO, ENAM Referring Unavailable TRONCOSO, ENMA Attending Unavailable MALYS, CHELSEA A Primary Care Unavailable TRONCOSO, ENMA Referring Unavailable TRONCOSO, ENMA Attending Unavailable MALYS, CHELSEA A Primary Care Unavailable TRONCOSO, ENMA Referring Unavailable TRONCOSO, ENMA Attending Unavailable MALYS, CHELSEA A Primary Care Unavailable TRONCOSO, ENMA Referring Unavailable MALYS, CHELSEA A Primary Care Unavailable TRONCOSO, ENMA Attending Unavailable TRONCOSO, ENMA Referring Unavailable Allergies Allergy Classification Reported Allergen(s) Allergy Type Date of Onset Reaction(s) Facility (20 sources) Ibuprofen; Translations: [IBUPROFEN] Drug Allergy 09-09-2005 Other: See Comments [facility] Medications Completed/Discontinued Medications Medication Drug Class(es) Dates Sig (Normalized) Sig (Original) 0.4 ml adalimumab 100 mg/ml auto-injector (17 sources) Tumor Necrosis Factor Deanna Start: 07-05-2022 End: 01-21-2023 HUMIRA,CF, PEN 40 mg/0.4 mL pen kit Indications: High risk medication use INJECT 40MG SUBCUTANEOUSLY EVERY 2 WEEKS 2 Each 2 09/18/2022 01/21/2023 Discontinued (Course of therapy completed) Problems Active Problems Problem Classification Problem Date Documented Date Episodic/Chronic Headache; including migraine (1 source) Intractable chronic tension headache; Translations: [Chronic tension-type headache, intractable] Chronic Headache; including migraine (2 sources) Chronic daily headache; Translations: [Chronic daily headache] Episodic Headache; including migraine (1 source) Headache; including migraine; Translations: [Chronic daily headache] Onset: 03-20-2023 Immunizations and screening for infectious disease (2 sources) Anti-nuclear factor positive; Translations: [Other specified abnormal immunological findings in serum] Episodic Noninfectious gastroenteritis (1 source) Colitis; Translations: [Noninfective gastroenteritis and colitis, unspecified] Episodic Other aftercare (5 sources) Taking high risk medication; Translations: [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] Episodic Other non-traumatic joint disorders (2 sources) Multiple joint pain; Translations: [Pain in unspecified joint] Episodic Rheumatoid arthritis and related disease (20 sources) Ankylosing spondylitis; Translations: [Ankylosing spondylitis of unspecified sites in spine] Onset: 07-05-2022 Chronic Spondylosis; intervertebral disc disorders; other back problems (1 source) Low back pain; Translations: [Low back pain, unspecified back pain laterality, unspecified chronicity, unspecified whether sciatica present] Episodic Past or Other Problems Problem Classification Problem Date Documented Da te Episodic/Chronic Deficiency and other anemia (20 sources) Anemia; Translations: [Anemia, unspecified] Onset: 07-01-2006 07-01-2006 Episodic Other aftercare (1 source) Other correction (current) drug therapy; Translations: [High risk medication use] Onset: 11-27-2022 Episodic Other non-traumatic joint disorders (1 source) Pain in unspecified joint; Translations: [Pain in joint, multiple sites] Onset: 10-08-2022 Episodic Results Test Name Value Interpretation Reference Range Facil ity Vital Signs Date Time Vital Sign Value Performing Clinician Cb gar 12-13-2022 09:54-0400 Body height 162.6 cm Marine Obregon MD Work Phone: [facility] 12-13-2022 09:54-0400 Body weight 72.58 kg Marine Obregon MD Work Phone: [facility] 12-13-2022 09:54-0400 Diastolic blood pressure 63 mm[Hg] Marine Obregon MD Work Phone: [facility] 12-13-2022 09:54-0400 Heart rate 80 /min Marine Obregon MD Work Phone: [facility] 12-13-2022 09:54-0400 Respiratory rate 16 /min Marine Obregon MD Work Phone: [facility] 12-13-2022 09:54-0400 SaO2% (BldA) [Mass fraction] 100 % Marine Obregon MD Work Phone: [facility] 12-13-2022 09:54-0400 Systolic blood pressure 125 mm[Hg] Marine Obregon MD Work Phone: [facility] 02-01-2022 10:53-0400 Body height 165.1 cm Enma Troncoso MD Work Phone: [facility] 02-01-2022 10:53-0400 Body temperature 92.61 [degF] Enma Troncoso MD Work Phone: [facility] 02-01-2022 10:53-0400 Body weight 74.84 kg Enma Troncoso MD Work Phone: [facility] 02-01-2022 10:53-0400 Diastolic blood pressure 70 mm[Hg] Enma Troncoso MD Work Phone: [facility] 02-01-2022 10:53-0400 Heart rate 94 /min Enma Troncoso MD Work Phone: [facility] 02-01-2022 10:53-0400 Respiratory rate 12 /min Enma Troncoso MD Work Phone: [facility] 02-01-2022 10:53-0400 Systolic blood pressure 106 mm[Hg] Enma Troncoso MD Work Phone: [facility] Encounters Encounter Date Encounter Type Care Provider Facility Start: 08-18-2023 End: 08-18-2023 ambulatory ENMA TRONCOSO Facility:[facility] Start: 07-27-2023 Refill Enma gilbert MD Work Phone: [facility] Plan of Treatment Date Care Activity Detail Author Start: 03-24-2024 Urine microalbumin profile DTaP,Tdap,Td Vaccine (8 - Td or Tdap) [facility] Start: 05-30-2023 Influenza vaccination [facility] Start: 11-27-2022 End: 01-27-2023 BLOOD TB SCREEN, INCUBATED BLOOD TB SCREEN, INCUBATED Lab Routine High risk medication use Expected: 11/27/2022, Expires: 01/27/2023 [facility] Work Phone: Immunizations Immunization Date Immunization Notes Care Provider Brina batista 06-28-2022 influenza virus vaccine, unspecified formulation Enma Troncoso MD Work Phone: [facility] 02-27-2010 tetanus toxoid, redu marlin diphtheria toxoid, and acellular pertussis vaccine, adsorbed Enma Troncoso MD Work Phone: [facility] 05-19-2006 hepatitis B vaccine, adult dosage Enma rToncoso MD Work Phone: [facility] Work Phone: 05-19-2006 Meningococcal, MCV4, unspecified conjugate formulation(groups A, C, Y and W-135) Enma Troncoso MD Work Phone: [facility] Work Phone: 05-02-2004 tetanus and diphther ia toxoids, adsorbed, preservative free, for adult use (2 Lf of tetanus toxoid and 2 Lf of diphtheria toxoid) Enma Troncoso MD Work Phone: [facility] Work Phone: 06-15-2001 hepatitis B vaccine, adult dosage Enma Troncoso MD Work Phone: [facility] Work Phone: 05-13-2001 hepatitis B vaccine, adult dosage Enma Troncoso MD Work Phone: [facility] Work Phone: 05-13-2001 measles, mumps and rubella virus vaccine Enma Troncoso MD Work Phone: [facility] Work Phone: 04-15-1994 diphtheria, tetanus toxoids and acellular pertussis vaccine Enma Troncoso MD Work Phone: [facility] Work Phone: 04-15-1994 trivalent poliovirus vaccine, live, oral Enma Troncoso MD Work Phone: [facility] Work Phone: 07-24-1990 diphtheria, tetanus toxoids and pertussis vaccine Enma Troncoso MD Work Phone: [facility] Work Phone: 07-24-1990 haemophilus influenz ae type b vaccine, PRP-D conjugate Enma Troncoso MD Work Phone: [facility] Work Phone: 07-24-1990 trivalent poliovirus vaccine, live, oral Enma Troncoso MD Work Phone: [facility] Work Phone: 02-10-1990 diphtheria, tetanus toxoids and pertussis vaccine Enma Troncoso MD Work Phone: [facility] Work Phone: 02-10-1990 measles, mumps and rubella virus vaccine Enma Troncoso MD Work Phone: [facility] Work Phone: 09-09-1989 diphtheria, tetanus toxoids and pertussis vaccine Enma Troncoso MD Work Phone: [facility] Work Phone: 09-09-1989 trivalent poliovirus vaccine, live, oral Enma Troncoso MD Work Phone: [facility] Work Phone: 01-10-1989 diphtheria, tetanus toxoids and pertussis vaccine Enma Troncoso MD Work Phone: [facility] Work Phone: 01-10-1989 trivalent poliovirus vaccine, live, oral Enma Troncoso MD Work Phone: [facility] Work Phone: Payers Date Payer Category Payer Private Health Insurance [id number] 2022 Unknown LIMITED BENEFITS PLAN LIMITED BENEFITS GENERIC [id number] 2022-Present Other [id number] 2019 Private Health Insurance [employer] PPO [id number] 2019-Present [phone] [address] [place] [address] O [id number] 2019 Private Health Insurance [id number] 2019 Private Health Insurance [id number] 1988 Unknown [id number] 1988 Unknown [id number] 1988 Unknown [id number] 1988 Unknown [id number] Social History Date Type Detail Facility Start: 02-01-2022 End: 12-13-2022 Tobacco smoking status NHIS Never smoked tobacco [facility] Start: 02-01-2022 End: 02-21-2023 Alcohol intake Current non-drinker of alcohol (finding) [facility] Start: 1990 Sex Assigned At Female [facility] Start: 01-22-2022 End: 07-05-2022 Exposure to SARS-CoV-2 (event) Not sure [facility] Start: 02-23-2022 End: 03-05-2022 Exposure to SARS-CoV-2 (event) Unable to assess [facility] Start: 02-01-2022 End: 12-13-2022 Tobacco use and exposure Smokeless tobacco non-user [facility] Start: 02-21-2023 End: 03-20-2023 History of Social function [facility] Start: 02-21-2023 End: 03-20-2023 Tobacco use panel [facility] Adult Depression Screening Assessment 0 [facility] Start: 12-06-2021 Gender identity Identifies as female gender (finding) [facility] Start: 12-06-2021 Sexual orientation Heterosexual (fin ding) [facility] Clinical Notes 02-01-2022 to 08-18-2023 Telephone Encounter - Bhakti Perry LPN - 07/29/2023 11:41 AM Kim Obregon MD - 03/20/2023 4:33 PM EDTTelephone Encounter - Mirella Vega - 01/22/2023 1:49 PM EDT Note Date & Type Note Facility 08-18-2023 Note HNO ID: [id number] Author: Enma Troncoso MD Service: ? Author Type: Physician Type: Progress Notes Filed: 08/18/2023 2:29 PM Note Text: RHEUMATOLOGY PROGRESS NOTE Patient is here for a follow up visit for Patient presents with: Ankylosing Spondylitis HPI: Dorothy Shell is a 32 year old female who presents joint pain. Patient is . Switched to Cimzia. Ob suggested to hold off till second trimester. Had multiple flare ups. Last week. Pain all over headache, no energy, chest felt heavy. Took Medrol pack by PCP. Had side effects to prednisone. Mg helps with migraines She thinks she is in a flare. More neck pain, headaches, low back pain. Pain worsens towards the end of the day. Took naproxen, tylenol. Admits to a lot of stress in the last week. Sleeping good. She saw neurology. Rec Elavil. Not started yet. May try for . Daily headaches. Hip pain is better. Some dry patches in skin. MVP, congenital hip dysplasia Brief Rheumatological history - More pain. In bed all day for few days last weekend. No energy. inflammatory markers have been high since sep. Whole body pain. PCP started Medrol pock which helped. Low back pain, hips, knees, some swelling in hands, legs. Am stiffness lasting all day. Mornings and evenings are hard. Episodes of pain since sep. Current flare up started 6 days ago. She also takes tylenol, ibuprofen. Nigh time awakening siwth back pain. Sometimes pleuritic chest pain. Colitis x few times Headaches daily. Not seen a neurologist. Mother had myopathy. Bedridden for an year. 3 pregnancies. 22 weeks, early trimester. One baby 20 months. 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 CONSTITUTIONAL: Recent Weight change: No Fever: No EYES: Dryness in nose: No Dryness of mouth: No Oral ulcers: No CARDIOVASCULAR: Pain in chest: No RESPIRATORY: Shortness of breath: No Cough: No GASTROINTESTINAL: Nausea: No Vomiting: No Changes in bowel movements: No Jaundice: No Heartburn: No MUSCULOSKELETAL: Per HPI INTEGUMENTARY: Rash: No HEMATOLOGIC/LYMPHATIC: Anemia: No NEUROLOGICAL SYSTEM: Headaches: No Sensitivity or pain of hands and/or feet: No PSYCHIATRIC: Anxiety: No Poor sleep: No PAST MEDICAL HISTORY Diagnosis Date Other specified iron deficiency anemias PAST SURGICAL HISTORY Procedure Laterality Date PAST SURGICAL HISTORY OF L congenital hip dysplasia x 2, 1988 TONSILLECTOMY HX History Review: I have reviewed and modified as needed, the following during this visit: Allergies, Past Medical History, Past Surgical History, Past Family History, Past Social History. BP (!) 103/49 Pulse 80 Temp 36.4 ?C (97.6 ?F) (Temporal) Resp 13 Ht 162.6 cm (5' 4 ) Wt 80.3 kg (177 lb) LMP (LMP Unknown) BMI 30.38 kg/m? Physical Exam GENERAL: Well appearing, alert, comfortable, in no acute distress, well-hydrated, well nourished. HEENT: Negative for external ears normal. Canals are clear. Both TMs visualized and are normal. Eye Exam normal. External nose normal, no nasal ulcer or throat ulcer. NECK: NECK Supple, no adenopathy; thyroid symmetric, normal size, no bruits CARDIAC: regular rate and rhythm, No murmur asculated., and Equal peripheral pulses RESPIRATORY: Lungs clear to auscultation. No wheezing, rhonchi, rales VASCULAR: RRR without murmur, gallop, or rubs. No ectopy. NEURO: Motor and sensory exam normal MOTOR: Normal; including tone, gait, stressed gait, power and coordination. 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 There is no electrodiagnostic evidence for peripheral neuropathy. IMPRESSION: Normal x-ray examination of the chest. ACL IgM 17 Hb 11.5 CRP 26 (0-3) ESR 59 Normal other APLS, C3, C4, HLA B27, Ds DNAm LYUDMILA neg, HUMA , CK, CCP, Jena 1 LYUDMILA direct positive FINDINGS: Normal lumbar lordosis. There is no substantial scoliosis. There is a normal alignment of the vertebrae. Normal vertebral bodies and endplates. Normal disc space heights. The soft tissue structures are unremarkable. FINDINGS: There are mild erosions and iliac sided sclerosis of the bilateral sacroiliac joints. Normal visualized sacral ala and sacrum. Normal visualize (more content not included)... [facility] 07-29-2023 Miscellaneous Notes Pharmacy requesting the following refill. Requested Prescriptions Pending Prescriptions Disp Refills CIMZIA 400 mg/2 mL (200 mg/mL x 2) sub-q syringe kit [Pharmacy Med Name: CIMZIA 200MG KIT PFS KIT 2 X] 1 Each Sig: INJECT 400MG (2 SYRINGES) SUBCUTANEOUSLY EVERY 4 WEEKS Patient last appointment: 02/21/2023 Next Appointment: 08/18/2023 Patient Phone numbers: [phone] (home) Request is for script(s) to be escript to pharmacy. [facility] [place] [phone] - [address] [place] [address] Bhakti Perry LPN documented in this encounter [facility] 03-20-2023 Note HNO ID: [id number] Author: Marine Obregon MD Service: ? Author Type: Physician Type: Progress Notes Filed: 04/06/2023 8:27 PM Note Text: Follow up virtual visit VIRTUAL VISIT PROGRESS NOTE This is a virtual visit using [employer] video visit. It required patient-provider interaction for the medical decision making as documented below. I have communicated my name and active licensure. The patient's identity and physical location were verified at the time of this visit. Either the patient or their legal traveling representative has been informed of the risks and benefits of -- and alternatives to -- treatment through a remote evaluation and consents to proceed with the evaluation remotely. Dorothy Shell is a 32 year old female seen for headache. HISTORY REVIEWED (electronic chart updated): PAST MEDICAL HISTORY Diagnosis Date Other specified iron deficiency anemias PAST SURGICAL HISTORY Procedure Laterality Date PAST SURGICAL HISTORY OF L congenital hip dysplasia x 1988 TONSILLECTOMY HX FAMILY HISTORY Problem Relation Age of Onset Arthritis Mother PsA Heart Mother Mitral valve/tricuspid valve prolapse Myopathy Mother None Father other (Myltiple myeloma) Father None Sister None Sister None Sister Social History Tobacco Use Smoking status: Never Smokeless tobacco: Never Vaping Use Vaping Use: Never used Substance Use Topics Alcohol use: No Drug use: No Current Outpatient Medications Medication Sig Magnesium Oxide 500 mg cap Take by mouth. 25/iron fum/folic/dha (-1 ORAL) Take by mouth. Glo fusion vitamins takes two each day enoxaparin (LOVENOX) 40 mg/0.4 mL Takes once each day per patient aspirin, enteric coated (ASPIRIN, ENTERIC COATED) 81 mg EC tablet Take by mouth. certolizumab pegol (CIMZIA STARTER KIT) 400 mg/2 mL (200 mg/mL x 2) sub-q syringe kit Inject 2 mL subcutaneously every 2 weeks for 3 doses. Inject 400mg (2 pens) subcutaneously on weeks 0, 2 and 4. Prefilled syringes certolizumab pegol (CIMZIA) 400 mg/2 mL (200 mg/mL x 2) sub-q syringe kit Inject 2 mL subcutaneously every 4 weeks. Prefilled syringe magnesium gluconate (MAG-G ORAL) Take by mouth. riboflavin, vitamin B2, (VITAMIN B-2) 100 mg tab Take 1 tablet by mouth twice daily. multivitamin/iron/folic acid (CENTRUM COMPLETE ORAL) Take 1 Each by mouth once daily. Centrum multi gummies (Patient not taking: Reported on 02/21/2023) cholecalciferol, vitamin D3, (VITAMIN D3 ORAL) Take 2,000 Units by mouth once daily. loratadine (CLARITIN) 10 mg tablet Take 10 mg by mouth once daily. (Patient not taking: Reported on 07/05/2022) naproxen (NAPROSYN) 500 mg tablet Take 1 tablet by mouth twice daily as needed (for pain). Take with food (Patient not taking: Reported on 02/21/2023) No current facility-administered medications for this visit. ALLERGIES Allergen Reactions Motrin [Ibuprofen] Other: See Comments Patient states, I think that was a fluke, I take it now. Reaction as a child. I spent a total of 30 minutes on the date of the service which included preparing to see the patient, [id number] patient care, completing clinical documentation, and counseling and educating the patient/family/caregiver Marine Obregon MD No orders found for this visit on 03/20/23. 03/20/23 Accompanied by she is 14 weeks B2 100 mg twice a day Tylenol as needed Daily headache and takes tylenol Not taking other medications for fear of teratogenic side effects Patient seen as virtual patient in August 2022 for chronic daily headache Interval history She is not taking Elavil because of flare up of her autoimmune disease, So she didn't take at all ,she is trying to get and wants to avoid all medications For fear of teratogenic side effects Taking magnesium at night , she feels that magnesium helps the intensity and severity of headache Still headache is daily but is mild and not severe as before ,able to function normally With the headache, and so not interfering with her daily activity Its all over her head ,and became daily since her autoimmune disease flared up Can last all day from time she wakes up to sleep Headache is all over and associated with neck pain Neck pain is intermittent even without headache Goes to chiropracter for help with neck pain History In a previous note Dorothy Shell is a 31 year old female seen for headaches. Patient states that her headache has been more frequent for the last year, She used to get headaches frequently but not daily like now This year they are worse than before, being daily can be disabling, Affecting her concentration , she also gets photophobia phonophobia No Nausea no vomiting, if she has a possibility of lying down She would prefer to lie down in a dark quiet room But sometimes she continues to work, she takes [id number] medications nonst (more content not included)... [facility] 03-20-2023 History of Presen t illness Narrative Follow up virtual visit VIRTUAL VISIT PROGRESS NOTE This is a virtual visit using [employer] video visit. It required patient-provider interaction for the medical decision making as documented below. I have communicated my name and active licensure. The patient's identity and physical location were verified at the time of this visit. Either the patient or their legal traveling representative has been informed of the risks and benefits of -- and alternatives to -- treatment through a remote evaluation and consents to proceed with the evaluation remotely. Dorothy Shell is a 32 year old female seen for headache. HISTORY REVIEWED (electronic chart updated): PAST MEDICAL HISTORY Diagnosis Date Other specified iron deficiency anemias PAST SURGICAL HISTORY Procedure Laterality Date PAST SURGICAL HISTORY OF L congenital hip dysplasia x 1988 TONSILLECTOMY HX FAMILY HISTORY Problem Relation Age of Onset Arthritis Mother PsA Heart Mother Mitral valve/tricuspid valve prolapse Myopathy Mother None Father other (Myltiple myeloma) Father None Sister None Sister None Sister Social History Tobacco Use Smoking status: Never Smokeless tobacco: Never Vaping Use Vaping Use: Never used Substance Use Topics Alcohol use: No Drug use: No Current Outpatient Medications Medication Sig Magnesium Oxide 500 mg cap Take by mouth. 25/iron fum/folic/dha (-1 ORAL) Take by mouth. Glo fusion vitamins takes two each day enoxaparin (LOVENOX) 40 mg/0.4 mL Takes once each day per patient aspirin, enteric coated (ASPIRIN, ENTERIC COATED) 81 mg EC tablet Take by mouth. certolizumab pegol (CIMZIA STARTER KIT) 400 mg/2 mL (200 mg/mL x 2) sub-q syringe kit Inject 2 mL subcutaneously every 2 weeks for 3 doses. Inject 400mg (2 pens) subcutaneously on weeks 0, 2 and 4. Prefilled syringes certolizumab pegol (CIMZIA) 400 mg/2 mL (200 mg/mL x 2) sub-q syringe kit Inject 2 mL subcutaneously every 4 weeks. Prefilled syringe magnesium gluconate (MAG-G ORAL) Take by mouth. riboflavin, vitamin B2, (VITAMIN B-2) 100 mg tab Take 1 tablet by mouth twice daily. multivitamin/iron/folic acid (CENTRUM COMPLETE ORAL) Take 1 Each by mouth once daily. Centrum multi gummies (Patient not taking: Reported on 02/21/2023) cholecalciferol, vitamin D3, (VITAMIN D3 ORAL) Take 2,000 Units by mouth once daily. loratadine (CLARITIN) 10 mg tablet Take 10 mg by mouth once daily. (Patient not taking: Reported on 07/05/2022) naproxen (NAPROSYN) 500 mg tablet Take 1 tablet by mouth twice daily as needed (for pain). Take with food (Patient not taking: Reported on 02/21/2023) No current facility-administered medications for this visit. ALLERGIES Allergen Reactions Motrin [Ibuprofen] Other: See Comments Patient states, I think that was a fluke, I take it now. Reaction as a child. I spent a total of 30 minutes on the date of the service which included preparing to see the patient, [id number] patient care, completing clinical documentation, and counseling and educating the patient/family/caregiver Marine Obregon MD No orders found for this visit on 03/20/23. 03/20/23 Accompanied by she is 14 weeks B2 100 mg twice a day Tylenol as needed Daily headache and takes tylenol Not taking other medications for fear of teratogenic side effects Patient seen as virtual patient in August 2022 for chronic daily headache Interval history She is not taking Elavil because of flare up of her autoimmune disease, So she didn't take at all ,she is trying to get and wants to avoid all medications For fear of teratogenic side effects Taking magnesium at night , she feels that magnesium helps the intensity and severity of headache Still headache is daily but is mild and not severe as before ,able to function normally With the headache, and so not interfering with her daily activity Its all over her head ,and became daily since her autoimmune disease flared up Can last all day from time she wakes up to sleep Headache is all over and associated with neck pain Neck pain is intermittent even without headache Goes to chiropracter for help with neck pain History In a previous note Dorothy Shell is a 31 year old female seen for headaches. Patient states that her headache has been more frequent for the last year, She used to get headaches frequently but not daily like now This year they are worse than before, being daily can be disabling, Affecting her concentration , she also gets photophobia phonophobia No Nausea no vomiting, if she has a possibility of lying down She would prefer to lie down in a dark quiet room But sometimes she continues to work, she takes [id number] medications nonsteroidal anti-inflammatory with partial relief She tried Excedrin which also works but makes her very little really so she did not try it again she hates the feeling that it gave her. 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 Back and hip pain because of anklylosing spondylitis chronic joint pain, Which is preventing her from sleep No neck pain no incontinence of urine or bowel no focal weakness or numbness HISTORY REVIEWED (electronic chart updated): PAST MEDICAL HISTORY Diagnosis Date Other specified iron deficiency anemias PAST SURGICAL HISTORY Procedure Laterality Date PAST SURGICAL HISTORY OF L congenital hip dysplasia x 1988 TONSILLECTOMY HX FAMILY HISTORY Problem Relation Age of Onset Arthritis Mother PsA Heart Mother Mitral valve/tricuspid valve prolapse Myopathy Mother None Father other (Myltiple myeloma) Father None Sister None Sister None Sister Social History Tobacco Use Smoking status: Never Smokeless tobacco: Never Vaping Use Vaping Use: Never used Substance Use Topics Alcohol use: No Drug use: No Current Outpatient Medications Medication Sig Magnesium Oxide 500 mg cap Take by mouth. 25/iron fum/folic/dha (-1 ORAL) Take by mouth. Glo fusion vitamins takes two each day enoxaparin (LOVENOX) 40 mg/0.4 mL Takes once each day per patient aspirin, enteric coated (ASPIRIN, ENTERIC COATED) 81 mg EC tablet Take by mouth. certolizumab pegol (CIMZIA STARTER KIT) 400 mg/2 mL (200 mg/mL x 2) sub-q syringe kit Inject 2 mL subcutaneously every 2 weeks for 3 doses. Inject 400mg (2 pens) subcutaneously on weeks 0, 2 and 4. Prefilled syringes certolizumab pegol (CIMZIA) 400 mg/2 mL (200 mg/mL x 2) sub-q syringe kit Inject 2 mL subcutaneously every 4 weeks. Prefilled syringe magnesium gluconate (MAG-G ORAL) Take by mouth. riboflavin, vitamin B2, (VITAMIN B-2) 100 mg tab Take 1 tablet by mouth twice daily. amitriptyline (ELAVIL) 10 mg tablet Take 1 tablet by mouth daily at bedtime. multivitamin/iron/folic acid (CENTRUM COMPLETE ORAL) Take 1 Each by mouth once daily. Centrum multi gummies (Patient not taking: Reported on 02/21/2023) cholecalciferol, vitamin D3, (VITAMIN D3 ORAL) Take 2,000 Units by mouth once daily. loratadine (CLARITIN) 10 mg tablet Take 10 mg by mouth once daily. (Patient not taking: Reported on 07/05/2022) naproxen (NAPROSYN) 500 mg tablet Take 1 tablet by mouth twice daily as needed (for pain). Take with food (Patient not taking: Reported on 02/21/2023) No current facility-administered medications for this visit. ALLERGIES Allergen Reactions Motrin [Ibuprofen] Other: See Comments Patient states, I think that was a fluke, I take it now. Reaction as a child. REVIEW OF SYSTEMS: GENERAL: no recent change in weight, no fever, activity level is normal PHYSICAL EXAMINATION: There were no vitals filed for this visit. MENTAL STATUS: Alert, oriented to person, place and time and Follows commands CRANIAL NERVES: EOM's intact, Visual marie intact to confrontation, Facial sensation intact, Face symmetric, Hearing intact to finger rub bilaterally, No dysarthria, Palate elevates symmetrically, Tongue protrudes midline, and Shoulder shrug intact and symmetric MOTOR: No drift MOTOR STRENGTH: Upper and lower extremity 5/5 bilaterally REFLEXES: UE and LE reflexes are equal and reactive SENSATION: Intact light touch COORDINATION: Finger-to- nose-finger intact bilaterally GAIT: Normal-based ASSESSMENT: Patient is 32 years old woman , has been complaining of chronic daily headaches Since September 2022 when she had flaring up of autoimmune disease She does not want to take medication at this time because they are planning to get She agreed to use magnesium and B2 as preventive medication PLAN: Acute and preventive medications for headache with supplements Magnesium supplements and the B2 as discussed with the patient and her 1-Maintain regular sleep schedule. 2-Limit over the counter medications and prescription rescue meds to 2 days per week or less 3-Maintain headache diary. 4-Limit caffeine to 1-2, 8 oz cups per day or less (300 mg) 5-Limit diet sodas to12 oz or less per day. Avoid other sources of nutrasweet. 6-Avoid dietary triggers. (list given to pt) 7-Eat regular, frequent meals. 8- Keep hydrated. Drink at least 6-8, 8 oz glasses of water/d Because the headache has been persistent intractable we will get a CT brain without contrast As patient never had the imaging of her brain before There are no Patient Instructions on file for this visit. Marine Obregon MD documented in this encounter [facility] 02-21-2023 Note HNO ID: [id number] Author: Enma Troncoso MD Service: ? Author Type: Physician Type: Progress Notes Filed: 02/21/2023 12:06 PM Note Text: RHEUMATOLOGY PROGRESS NOTE Patient is here for a follow up visit for Patient presents with: Ankylosing Spondylitis: Patient due date 09-15-23 HPI: Dorothy Shell is a 32 year old female who presents joint pain. Patient is . Switched to Cimzia. Ob suggested to hold off till second trimester. Had multiple flare ups. Last week. Pain all over headache, no energy, chest felt heavy. Took Medrol pack by PCP. Had side effects to prednisone. Mg helps with migraines She thinks she is in a flare. More neck pain, headaches, low back pain. Pain worsens towards the end of the day. Took naproxen, tylenol. Admits to a lot of stress in the last week. Sleeping good. She saw neurology. Rec Elavil. Not started yet. May try for . Daily headaches. Hip pain is better. Some dry patches in skin. MVP, congenital hip dysplasia Brief Rheumatological history - More pain. In bed all day for few days last weekend. No energy. inflammatory markers have been high since sep. Whole body pain. PCP started Medrol pock which helped. Low back pain, hips, knees, some swelling in hands, legs. Am stiffness lasting all day. Mornings and evenings are hard. Episodes of pain since sep. Current flare up started 6 days ago. She also takes tylenol, ibuprofen. Nigh time awakening siwth back pain. Sometimes pleuritic chest pain. Colitis x few times Headaches daily. Not seen a neurologist. Mother had myopathy. Bedridden for an year. 3 pregnancies. 22 weeks, early trimester. One baby 20 months. 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 CONSTITUTIONAL: Recent Weight change: No Fever: No EYES: Dryness in nose: No Dryness of mouth: No Oral ulcers: No CARDIOVASCULAR: Pain in chest: No RESPIRATORY: Shortness of breath: No Cough: No GASTROINTESTINAL: Nausea: No Vomiting: No Changes in bowel movements: No Jaundice: No Heartburn: No MUSCULOSKELETAL: Per HPI INTEGUMENTARY: Rash: No HEMATOLOGIC/LYMPHATIC: Anemia: No NEUROLOGICAL SYSTEM: Headaches: No Sensitivity or pain of hands and/or feet: No PSYCHIATRIC: Anxiety: No Poor sleep: No PAST MEDICAL HISTORY Diagnosis Date Other specified iron deficiency anemias PAST SURGICAL HISTORY Procedure Laterality Date PAST SURGICAL HISTORY OF L congenital hip dysplasia x 2, 1988 TONSILLECTOMY HX History Review: I have reviewed and modified as needed, the following during this visit: Allergies, Past Medical History, Past Surgical History, Past Family History, Past Social History. BP 121/54 (BP Site: Left Arm, BP Position: Sitting) Pulse 89 Temp 36.4 ?C (97.5 ?F) Ht 160.7 cm (5' 3.25 ) Wt 72.4 kg (159 lb 9.6 oz) LMP (LMP Unknown) SpO2 100% BMI 28.05 kg/m? Physical Exam GENERAL: Well appearing, alert, comfortable, in no acute distress, well-hydrated, well nourished. HEENT: Negative for external ears normal. Canals are clear. Both TMs visualized and are normal. Eye Exam normal. External nose normal, no nasal ulcer or throat ulcer. NECK: NECK Supple, no adenopathy; thyroid symmetric, normal size, no bruits CARDIAC: regular rate and rhythm, No murmur asculated., and Equal peripheral pulses RESPIRATORY: Lungs clear to auscultation. No wheezing, rhonchi, rales VASCULAR: RRR without murmur, gallop, or rubs. No ectopy. NEURO: Motor and sensory exam normal MOTOR: Normal; including tone, gait, stressed gait, power and coordination. 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 There is no electrodiagnostic evidence for peripheral neuropathy. IMPRESSION: Normal x-ray examination of the chest. ACL IgM 17 Hb 11.5 CRP 26 (0-3) ESR 59 Normal other APLS, C3, C4, HLA B27, Ds DNAm LYUDMILA neg, HUMA , CK, CCP, J[place] 1 LYUDMILA direct positive FINDINGS: Normal lumbar lordosis. There is no substantial scoliosis. There is a normal alignment of the vertebrae. Normal vertebral bodies and endplates. Normal disc space heights. The soft tissue structures are unremarkable. FINDINGS: There are mild erosions and iliac sided sclerosis of the bilateral sacr (more content not included)... [facility] 01-22-2023 Miscellaneous Notes Cimzia APPROVED [id number] 01.22.23-07.24.23 [facility] Mirella Vega Cimzia PENDING [facility] Mirella Vega documented in this encounter [facility] 01-22-2023 Miscellaneous Notes Pharmacy faxed requesting the following refill. Pharmacy faxed order to inform you that Cimzia is only avalable as Pre-filled Syringe or Vials. Please specify Pre-filled Syringe of Vial on Sig. Requested Prescriptions Pending Prescriptions Disp Refills certolizumab pegol (CIMZIA STARTER KIT) 400 mg/2 mL (200 mg/mL x 2) sub-q syringe kit 6 mL 0 Sig: Inject 2 mL subcutaneously every 2 weeks for 3 doses. Inject 400mg (2 pens) subcutaneously on weeks 0, 2 and 4. pens certolizumab pegol (CIMZIA) 400 mg/2 mL (200 mg/mL x 2) sub-q syringe kit 2 Each 2 Sig: Inject 2 mL subcutaneously every 4 weeks. pens Patient last appointment: 11/27/2022 Next Appointment: 01/28/2023 Patient Phone numbers: [phone] (home) Request is for script(s) to be escript to pharmacy. [facility] [place] [address] - [address] [facility] [phone] Bhakti Perry LPN documented in this encounter [facility] 01-21-2023 Miscellaneous Notes Addended by: ENMA TRONCOSO on: 01/21/2023 01:51 PM Modules accepted: Orders documented in this encounter [facility] 12-26-2022 Miscellaneous Notes Received call from Ran with [facility]. Patient is currently scheduled for MRI their facility. She said they can start prior authorization if we send them office visit notes from most recent visit. OV notes and order for Brain MRI faxed to Ran at [phone]. Confirmation they were received at 12:01 PM. Pily Noble Received fax that [facility] needs prior authorization for CT brain. Called [facility] to inform them that we do not provide authorizations for outside facilities. They stated they do not perform pre authorizations for outside providers. Call to patient to inform that she may need to schedule CT brain at [facility] to have pre authorization completed within our system. Patient verbalizes understanding. MADALYN Spann, RN December 26, 2022 12:02 PM documented in this encounter [facility] 12-13-2022 Note HNO ID: [id number] Author: Marine Obregon MD Service: ? Author Type: Physician Type: Progress Notes Filed: 12/13/2022 2:00 PM Note Text: December 13, 2022 Follow up office visit Accompanied by Patient seen as virtual patient in August 2022 for chronic daily headache Interval history She is not taking Elavil because of flare up of her autoimmune disease, So she didn't take at all ,she is trying to get and wants to avoid all medications For fear of teratogenic side effects Taking magnesium at night , she feels that magnesium helps the intensity and severity of headache Still headache is daily but is mild and not severe as before ,able to function normally With the headache, and so not interfering with her daily activity Its all over her head ,and became daily since her autoimmune disease flared up Can last all day from time she wakes up to sleep Headache is all over and associated with neck pain Neck pain is intermittent even without headache Goes to chiropracter for help with neck pain History In a previous note Dorothy Shell is a 31 year old female seen for headaches. Patient states that her headache has been more frequent for the last year, She used to get headaches frequently but not daily like now This year they are worse than before, being daily can be disabling, Affecting her concentration , she also gets photophobia phonophobia No Nausea no vomiting, if she has a possibility of lying down She would prefer to lie down in a dark quiet room But sometimes she continues to work, she takes ddhz-ynd-[id number] medications nonsteroidal anti-inflammatory with partial relief She tried Excedrin which also works but makes her very little really so she did not try it again she hates the feeling that it gave her. 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 Back and hip pain because of anklylosing spondylitis chronic joint pain, Which is preventing her from sleep No neck pain no incontinence of urine or bowel no focal weakness or numbness HISTORY REVIEWED (electronic chart updated): PAST MEDICAL HISTORY Diagnosis Date Other specified iron deficiency anemias PAST SURGICAL HISTORY Procedure Laterality Date PAST SURGICAL HISTORY OF L congenital hip dysplasia x 1988 TONSILLECTOMY HX FAMILY HISTORY Problem Relation Age of Onset Arthritis Mother PsA Heart Mother Mitral valve/tricuspid valve prolapse Myopathy Mother None Father other (Myltiple myeloma) Father None Sister None Sister None Sister Social History Tobacco Use Smoking status: Never Smokeless tobacco: Never Vaping Use Vaping Use: Never used Substance Use Topics Alcohol use: No Drug use: No Current Outpatient Medications Medication Sig magnesium gluconate (MAG-G ORAL) Take by mouth. HUMIRA,CF, PEN 40 mg/0.4 mL pen kit INJECT 40MG SUBCUTANEOUSLY EVERY 2 WEEKS multivitamin/iron/folic acid (CENTRUM COMPLETE ORAL) Take 1 Each by mouth once daily. Centrum multi gummies naproxen (NAPROSYN) 500 mg tablet Take 1 tablet by mouth twice daily as needed (for pain). Take with food riboflavin, vitamin B2, (VITAMIN B-2) 100 mg tab Take 1 tablet by mouth twice daily. golimumab (SIMPONI) 50 mg/0.5 mL Inject 0.5 mL subcutaneously every 4 weeks. Auto injector (Patient not taking: Reported on 12/13/2022) amitriptyline (ELAVIL) 10 mg tablet Take 1 tablet by mouth daily at bedtime. cholecalciferol, vitamin D3, (VITAMIN D3 ORAL) Take 4,000 Units by mouth once daily. (Patient not taking: Reported on 07/05/2022) loratadine (CLARITIN) 10 mg tablet Take 10 mg by mouth once daily. (Patient not taking: Reported on 07/05/2022) No current facility-administered medications for this visit. ALLERGIES Allergen Reactions Motrin [Ibuprofen] Other: See Comments Patient states, I think that was a fluke, I take it now. Reaction as a child. REVIEW OF SYSTEMS: GENERAL: no recent change in weight, no fever, activity level is normal PHYSICAL EXAMINATION: 12/13/22 0954 BP: 125/63 BP Site: Right Arm BP Position: Sitting BP Cuff Size: Regular Adult Pulse: 80 Resp: 16 SpO2: 100% Weight: 72.6 kg (160 lb) Height: 162.6 cm (5' 4 ) MENTAL STATUS: Alert, oriented to person, place and time and Follows commands CRANIAL NERVES: EOM's intact, Visual marie intact to confrontation, Facial sensation intact, Face symmetric, Hearing intact to finger rub bilaterally, No dysarthria, Palate elevates symmetrically, Tongue protrudes midline, and Sh (more content not included)... [facility] 12-13-2022 History of Presen t illness Narrative December 13, 2022 Follow up office visit Accompanied by Patient seen as virtual patient in August 2022 for chronic daily headache Interval history She is not taking Elavil because of flare up of her autoimmune disease, So she didn't take at all ,she is trying to get and wants to avoid all medications For fear of teratogenic side effects Taking magnesium at night , she feels that magnesium helps the intensity and severity of headache Still headache is daily but is mild and not severe as before ,able to function normally With the headache, and so not interfering with her daily activity Its all over her head ,and became daily since her autoimmune disease flared up Can last all day from time she wakes up to sleep Headache is all over and associated with neck pain Neck pain is intermittent even without headache Goes to chiropracter for help with neck pain History In a previous note Dorothy Shell is a 31 year old female seen for headaches. Patient states that her headache has been more frequent for the last year, She used to get headaches frequently but not daily like now This year they are worse than before, being daily can be disabling, Affecting her concentration , she also gets photophobia phonophobia No Nausea no vomiting, if she has a possibility of lying down She would prefer to lie down in a dark quiet room But sometimes she continues to work, she takes lptp-[id number]-mojrxys medications nonsteroidal anti-inflammatory with partial relief She tried Excedrin which also works but makes her very little really so she did not try it again she hates the feeling that it gave her. 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 Back and hip pain because of anklylosing spondylitis chronic joint pain, Which is preventing her from sleep No neck pain no incontinence of urine or bowel no focal weakness or numbness HISTORY REVIEWED (electronic chart updated): PAST MEDICAL HISTORY Diagnosis Date Other specified iron deficiency anemias PAST SURGICAL HISTORY Procedure Laterality Date PAST SURGICAL HISTORY OF L congenital hip dysplasia x 1988 TONSILLECTOMY HX FAMILY HISTORY Problem Relation Age of Onset Arthritis Mother PsA Heart Mother Mitral valve/tricuspid valve prolapse Myopathy Mother None Father other (Myltiple myeloma) Father None Sister None Sister None Sister Social History Tobacco Use Smoking status: Never Smokeless tobacco: Never Vaping Use Vaping Use: Never used Substance Use Topics Alcohol use: No Drug use: No Current Outpatient Medications Medication Sig magnesium gluconate (MAG-G ORAL) Take by mouth. HUMIRA,CF, PEN 40 mg/0.4 mL pen kit INJECT 40MG SUBCUTANEOUSLY EVERY 2 WEEKS multivitamin/iron/folic acid (CENTRUM COMPLETE ORAL) Take 1 Each by mouth once daily. Centrum multi gummies naproxen (NAPROSYN) 500 mg tablet Take 1 tablet by mouth twice daily as needed (for pain). Take with food riboflavin, vitamin B2, (VITAMIN B-2) 100 mg tab Take 1 tablet by mouth twice daily. golimumab (SIMPONI) 50 mg/0.5 mL Inject 0.5 mL subcutaneously every 4 weeks. Auto injector (Patient not taking: Reported on 12/13/2022) amitriptyline (ELAVIL) 10 mg tablet Take 1 tablet by mouth daily at bedtime. cholecalciferol, vitamin D3, (VITAMIN D3 ORAL) Take 4,000 Units by mouth once daily. (Patient not taking: Reported on 07/05/2022) loratadine (CLARITIN) 10 mg tablet Take 10 mg by mouth once daily. (Patient not taking: Reported on 07/05/2022) No current facility-administered medications for this visit. ALLERGIES Allergen Reactions Motrin [Ibuprofen] Other: See Comments Patient states, I think that was a fluke, I take it now. Reaction as a child. REVIEW OF SYSTEMS: GENERAL: no recent change in weight, no fever, activity level is normal PHYSICAL EXAMINATION: 12/13/22 0954 BP: 125/63 BP Site: Right Arm BP Position: Sitting BP Cuff Size: Regular Adult Pulse: 80 Resp: 16 SpO2: 100% Weight: 72.6 kg (160 lb) Height: 162.6 cm (5' 4 ) MENTAL STATUS: Alert, oriented to person, place and time and Follows commands CRANIAL NERVES: EOM's intact, Visual marie intact to confrontation, Facial sensation intact, Face symmetric, Hearing intact to finger rub bilaterally, No dysarthria, Palate elevates symmetrically, Tongue protrudes midline, and Shoulder shrug intact and symmetric MOTOR: No drift MOTOR STRENGTH: Upper and lower extremity 5/5 bilaterally REFLEXES: UE and LE reflexes are equal and reactive SENSATION: Intact light touch COORDINATION: Finger-to- nose-finger intact bilaterally GAIT: Normal-based ASSESSMENT: Patient is 32 years old woman , has been complaining of chronic daily headaches Since September 2022 when she had flaring up of autoimmune disease She does not want to take medication at this time because they are planning to get She agreed to use magnesium and B2 as preventive medication PLAN: Acute and preventive medications for headache Magnesium supplements and the B2 as discussed with the patient and her 1-Maintain regular sleep schedule. 2-Limit over the counter medications and prescription rescue meds to 2 days per week or less 3-Maintain headache diary. 4-Limit caffeine to 1-2, 8 oz cups per day or less (300 mg) 5-Limit diet sodas to12 oz or less per day. Avoid other sources of nutrasweet. 6-Avoid dietary triggers. (list given to pt) 7-Eat regular, frequent meals. 8- Keep hydrated. Drink at least 6-8, 8 oz glasses of water/d Because the headache has been persistent intractable we will get a CT brain without contrast As patient never had the imaging of her brain before There are no Patient Instructions on file for this visit. Marine Obregon MD documented in this encounter [facility] 11-27-2022 Note HNO ID: [id number] Author: Enma Troncoso MD Service: ? Author Type: Physician Type: Progress Notes Filed: 11/27/2022 10:08 AM Note Text: VIRTUAL VISIT PROGRESS NOTE This is a virtual visit using [employer] video visit. It required patient-provider interaction for the medical decision making as documented below. Dorothy Shell is a 32 year old female seen for . Had multiple flare ups. Last week. Pain all over headache, no energy, chest felt heavy. Took Medrol pack by PCP. Had side effects to prednisone. Mg helps with migraines She thinks she is in a flare. More neck pain, headaches, low back pain. Pain worsens towards the end of the day. Took naproxen, tylenol. Admits to a lot of stress in the last week. Sleeping good. She saw neurology. Rec Elavil. Not started yet. May try for . Daily headaches. Hip pain is better. Some dry patches in skin. MVP, congenital hip dysplasia Brief Rheumatological history - More pain. In bed all day for few days last weekend. No energy. inflammatory markers have been high since sep. Whole body pain. PCP started Medrol pock which helped. Low back pain, hips, knees, some swelling in hands, legs. Am stiffness lasting all day. Mornings and evenings are hard. Episodes of pain since sep. Current flare up started 6 days ago. She also takes tylenol, ibuprofen. Nigh time awakening siwth back pain. Sometimes pleuritic chest pain. Colitis x few times Headaches daily. Not seen a neurologist. Mother had myopathy. Bedridden for an year. 3 pregnancies. 22 weeks, early trimester. One baby 20 months. 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 CONSTITUTIONAL: Recent Weight change: No Fever: No EYES: Dryness in nose: No Dryness of mouth: No Oral ulcers: No CARDIOVASCULAR: Pain in chest: No RESPIRATORY: Shortness of breath: No Cough: No GASTROINTESTINAL: Nausea: No Vomiting: No Changes in bowel movements: No Jaundice: No Heartburn: No MUSCULOSKELETAL: Per HPI INTEGUMENTARY: Rash: No HEMATOLOGIC/LYMPHATIC: Anemia: No NEUROLOGICAL SYSTEM: Headaches: No Sensitivity or pain of hands and/or feet: No PSYCHIATRIC: Anxiety: No Poor sleep: No HISTORY REVIEWED (electronic chart updated): PAST MEDICAL HISTORY Diagnosis Date Other specified iron deficiency anemias PAST SURGICAL HISTORY Procedure Laterality Date PAST SURGICAL HISTORY OF L congenital hip dysplasia x 1988 TONSILLECTOMY HX FAMILY HISTORY Problem Relation Age of Onset Arthritis Mother PsA Heart Mother Mitral valve/tricuspid valve prolapse Myopathy Mother None Father other (Myltiple myeloma) Father None Sister None Sister None Sister Social History Tobacco Use Smoking status: Never Smokeless tobacco: Never Vaping Use Vaping Use: Never used Substance Use Topics Alcohol use: No Drug use: No Current Outpatient Medications Medication Sig golimumab (SIMPONI) 50 mg/0.5 mL Inject 0.5 mL subcutaneously every 4 weeks. HUMIRA,CF, PEN 40 mg/0.4 mL pen kit INJECT 40MG SUBCUTANEOUSLY EVERY 2 WEEKS amitriptyline (ELAVIL) 10 mg tablet Take 1 tablet by mouth daily at bedtime. multivitamin/iron/folic acid (CENTRUM COMPLETE ORAL) Take 1 Each by mouth once daily. Centrum multi gummies (Patient not taking: Reported on 07/05/2022) cholecalciferol, vitamin D3, (VITAMIN D3 ORAL) Take 4,000 Units by mouth once daily. (Patient not taking: Reported on 07/05/2022) loratadine (CLARITIN) 10 mg tablet Take 10 mg by mouth once daily. (Patient not taking: Reported on 07/05/2022) naproxen (NAPROSYN) 500 mg tablet Take 1 tablet by mouth twice daily as needed (for pain). Take with food No current facility-administered medications for this visit. ALLERGIES Allergen Reactions Motrin [Ibuprofen] Other: See Comments Patient states, I think that was a fluke, I take it now. Reaction as a child. 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 There is no electrodiagnostic evidence for peripheral neuropathy. IMPRESSION: Normal x-ray examination of the chest. ACL IgM 17 Hb 11.5 CRP 26 (0-3) ESR 59 Normal other APLS, C3, C4, HLA B27, Ds DNAm LYUDMILA neg, HUMA , CK, CCP, Jena 1 LYUDMILA direct positive FINDINGS: Normal lumbar lordosis. There is no substantial scoliosis. There is a normal alignment of the vertebrae. Normal vertebral bodies and endplates. Normal disc space heights. The soft tissue structures are unremarkable. FINDINGS: There are mild erosions and iliac sided sclerosis of (more content not included)... [facility] 11-27-2022 History of Presen t illness Narrative VIRTUAL VISIT PROGRESS NOTE This is a virtual visit using [employer] video visit. It required patient-provider interaction for the medical decision making as documented below. Dorothy Shell is a 32 year old female seen for . Had multiple flare ups. Last week. Pain all over headache, no energy, chest felt heavy. Took Medrol pack by PCP. Had side effects to prednisone. Mg helps with migraines She thinks she is in a flare. More neck pain, headaches, low back pain. Pain worsens towards the end of the day. Took naproxen, tylenol. Admits to a lot of stress in the last week. Sleeping good. She saw neurology. Rec Elavil. Not started yet. May try for . Daily headaches. Hip pain is better. Some dry patches in skin. MVP, congenital hip dysplasia Brief Rheumatological history - More pain. In bed all day for few days last weekend. No energy. inflammatory markers have been high since sep. Whole body pain. PCP started Medrol pock which helped. Low back pain, hips, knees, some swelling in hands, legs. Am stiffness lasting all day. Mornings and evenings are hard. Episodes of pain since sep. Current flare up started 6 days ago. She also takes tylenol, ibuprofen. Nigh time awakening siwth back pain. Sometimes pleuritic chest pain. Colitis x few times Headaches daily. Not seen a neurologist. Mother had myopathy. Bedridden for an year. 3 pregnancies. 22 weeks, early trimester. One baby 20 months. 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 CONSTITUTIONAL: Recent Weight change: No Fever: No EYES: Dryness in nose: No Dryness of mouth: No Oral ulcers: No CARDIOVASCULAR: Pain in chest: No RESPIRATORY: Shortness of breath: No Cough: No GASTROINTESTINAL: Nausea: No Vomiting: No Changes in bowel movements: No Jaundice: No Heartburn: No MUSCULOSKELETAL: Per HPI INTEGUMENTARY: Rash: No HEMATOLOGIC/LYMPHATIC: Anemia: No NEUROLOGICAL SYSTEM: Headaches: No Sensitivity or pain of hands and/or feet: No PSYCHIATRIC: Anxiety: No Poor sleep: No HISTORY REVIEWED (electronic chart updated): PAST MEDICAL HISTORY Diagnosis Date Other specified iron deficiency anemias PAST SURGICAL HISTORY Procedure Laterality Date PAST SURGICAL HISTORY OF L congenital hip dysplasia x 1988 TONSILLECTOMY HX FAMILY HISTORY Problem Relation Age of Onset Arthritis Mother PsA Heart Mother Mitral valve/tricuspid valve prolapse Myopathy Mother None Father other (Myltiple myeloma) Father None Sister None Sister None Sister Social History Tobacco Use Smoking status: Never Smokeless tobacco: Never Vaping Use Vaping Use: Never used Substance Use Topics Alcohol use: No Drug use: No Current Outpatient Medications Medication Sig golimumab (SIMPONI) 50 mg/0.5 mL Inject 0.5 mL subcutaneously every 4 weeks. HUMIRA,CF, PEN 40 mg/0.4 mL pen kit INJECT 40MG SUBCUTANEOUSLY EVERY 2 WEEKS amitriptyline (ELAVIL) 10 mg tablet Take 1 tablet by mouth daily at bedtime. multivitamin/iron/folic acid (CENTRUM COMPLETE ORAL) Take 1 Each by mouth once daily. Centrum multi gummies (Patient not taking: Reported on 07/05/2022) cholecalciferol, vitamin D3, (VITAMIN D3 ORAL) Take 4,000 Units by mouth once daily. (Patient not taking: Reported on 07/05/2022) loratadine (CLARITIN) 10 mg tablet Take 10 mg by mouth once daily. (Patient not taking: Reported on 07/05/2022) naproxen (NAPROSYN) 500 mg tablet Take 1 tablet by mouth twice daily as needed (for pain). Take with food No current facility-administered medications for this visit. ALLERGIES Allergen Reactions Motrin [Ibuprofen] Other: See Comments Patient states, I think that was a fluke, I take it now. Reaction as a child. 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 There is no electrodiagnostic evidence for peripheral neuropathy. IMPRESSION: Normal x-ray examination of the chest. ACL IgM 17 Hb 11.5 CRP 26 (0-3) ESR 59 Normal other APLS, C3, C4, HLA B27, Ds DNAm LYUDMILA neg, HUMA , CK, CCP, Jena 1 LYUDMILA direct positive FINDINGS: Normal lumbar lordosis. There is no substantial scoliosis. There is a normal alignment of the vertebrae. Normal vertebral bodies and endplates. Normal disc space heights. The soft tissue structures are unremarkable. FINDINGS: There are mild erosions and iliac sided sclerosis of the bilateral sacroiliac joints. Normal visualized sacral ala and sacrum. Normal visualized iliac bones. Normal visualized soft tissue structures. IMPRESSION: Bilateral, relatively symmetric sacroiliitis (enteropathic arthritis, ankylosing spondylitis, rheumatoid arthritis). ASSESSMENT: (M45.9) Ankylosing spondylitis, unspecified site of spine (HCC) (primary encounter diagnosis) (Z79.899) High risk medication use PLAN: 32-year-old female is here for follow up for joint pain. Patient has history of positive LYUDMILA, miscarriage, chronic low back pain and family history of autoimmune disease. She also has personal history of unexplained colitis. bl sacroiliitis on x rays, h/o colitis. Dx Ankylosing spondylitis or IBD related arthritis. Slightly elevated APL. Monitor. May need to see high lift operator for future pregnancies. Continue Humira started 05/20. Daily headaches, neck pain, sometimes lightheadedness and numbness over neck muscles. Will refer to neurology. Flare of ? Pred course. May switch to Enbrel or Simponi or Cimzia or Renflexis. Advise Mag. May need to start Elavil if no improvement with pred. labs Not clear if recent flare up was inflammatory in origin. May need more aggressive treatments for headaches. Switch Humira to Simponi due to frequent flare ups. There are no Patient Instructions on file for this visit. I spent a total of 20 minutes on the date of the service which included preparing to see the patient, [id number] patient care, completing clinical documentation, obtaining and/or reviewing separately obtained history, communicating with other HCPs (not separately reported), and communicating results to the patient/family/caregiver Enma Troncoso MD [facility] on 11/27/22 BLOOD TB SCREEN, INCUBATED Orders Placed This Encounter golimumab (SIMPONI) 50 mg/0.5 mL Sig: Inject 0.5 mL subcutaneously every 4 weeks. Dispense: 0.5 mL Refill: 2 Platform used - my chart documented in this encounter [facility] 11-06-2022 Note HNO ID: [id number] Author: Enma Troncoso MD Service: ? Author Type: Physician Type: Progress Notes Filed: 11/06/2022 1:15 PM Note Text: VIRTUAL VISIT PROGRESS NOTE This is a virtual visit using [employer] video visit. It required patient-provider interaction for the medical decision making as documented below. Dorothy Shell is a 32 year old female seen for . Had side effects to prednisone. Mg helps with migraines She thinks she is in a flare. More neck pain, headaches, low back pain. Pain worsens towards the end of the day. Took naproxen, tylenol. Admits to a lot of stress in the last week. Sleeping good. She saw neurology. Rec Elavil. Not started yet. May try for . Daily headaches. Hip pain is better. Some dry patches in skin. MVP, congenital hip dysplasia Brief Rheumatological history - More pain. In bed all day for few days last weekend. No energy. inflammatory markers have been high since sep. Whole body pain. PCP started Medrol pock which helped. Low back pain, hips, knees, some swelling in hands, legs. Am stiffness lasting all day. Mornings and evenings are hard. Episodes of pain since sep. Current flare up started 6 days ago. She also takes tylenol, ibuprofen. Nigh time awakening siwth back pain. Sometimes pleuritic chest pain. Colitis x few times Headaches daily. Not seen a neurologist. Mother had myopathy. Bedridden for an year. 3 pregnancies. 22 weeks, early trimester. One baby 20 months. 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 CONSTITUTIONAL: Recent Weight change: No Fever: No EYES: Dryness in nose: No Dryness of mouth: No Oral ulcers: No CARDIOVASCULAR: Pain in chest: No RESPIRATORY: Shortness of breath: No Cough: No GASTROINTESTINAL: Nausea: No Vomiting: No Changes in bowel movements: No Jaundice: No Heartburn: No MUSCULOSKELETAL: Per HPI INTEGUMENTARY: Rash: No HEMATOLOGIC/LYMPHATIC: Anemia: No NEUROLOGICAL SYSTEM: Headaches: No Sensitivity or pain of hands and/or feet: No PSYCHIATRIC: Anxiety: No Poor sleep: No HISTORY REVIEWED (electronic chart updated): PAST MEDICAL HISTORY Diagnosis Date Other specified iron deficiency anemias PAST SURGICAL HISTORY Procedure Laterality Date PAST SURGICAL HISTORY OF L congenital hip dysplasia x 1988 TONSILLECTOMY HX FAMILY HISTORY Problem Relation Age of Onset Arthritis Mother PsA Heart Mother Mitral valve/tricuspid valve prolapse Myopathy Mother None Father other (Myltiple myeloma) Father None Sister None Sister None Sister Social History Tobacco Use Smoking status: Never Smokeless tobacco: Never Vaping Use Vaping Use: Never used Substance Use Topics Alcohol use: No Drug use: No Current Outpatient Medications Medication Sig predniSONE (DELTASONE) 5 mg tablet Take 3 tablets for 1 week, 2 tabs for 1 week, 1 tab for 1 week, then stop HUMIRA,CF, PEN 40 mg/0.4 mL pen kit INJECT 40MG SUBCUTANEOUSLY EVERY 2 WEEKS amitriptyline (ELAVIL) 10 mg tablet Take 1 tablet by mouth daily at bedtime. multivitamin/iron/folic acid (CENTRUM COMPLETE ORAL) Take 1 Each by mouth once daily. Centrum multi gummies (Patient not taking: Reported on 07/05/2022) cholecalciferol, vitamin D3, (VITAMIN D3 ORAL) Take 4,000 Units by mouth once daily. (Patient not taking: Reported on 07/05/2022) loratadine (CLARITIN) 10 mg tablet Take 10 mg by mouth once daily. (Patient not taking: Reported on 07/05/2022) naproxen (NAPROSYN) 500 mg tablet Take 1 tablet by mouth twice daily as needed (for pain). Take with food No current facility-administered medications for this visit. ALLERGIES Allergen Reactions Motrin [Ibuprofen] Other: See Comments Patient states, I think that was a fluke, I take it now. Reaction as a child. 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 There is no electrodiagnostic evidence for peripheral neuropathy. IMPRESSION: Normal x-ray examination of the chest. ACL IgM 17 Hb 11.5 CRP 26 (0-3) ESR 59 Normal other APLS, C3, C4, HLA B27, Ds DNAm LYUDMILA neg, HUMA , CK, CCP, Jena 1 LYUDMILA direct positive FINDINGS: Normal lumbar lordosis. There is no substantial scoliosis. There is a normal alignment of the vertebrae. Normal vertebral bodies and endplates. Normal disc space heights. The soft tissue structures are unremarkable. FINDINGS: There are mild erosions and iliac sided sclerosis of the bilateral sacroiliac joints. Normal visualized sacral ala and sacrum. Normal vis (more content not included)... [facility] 11-06-2022 History of Presen t illness Narrative VIRTUAL VISIT PROGRESS NOTE This is a virtual visit using [employer] video visit. It required patient-provider interaction for the medical decision making as documented below. Dorothy Shell is a 32 year old female seen for . Had side effects to prednisone. Mg helps with migraines She thinks she is in a flare. More neck pain, headaches, low back pain. Pain worsens towards the end of the day. Took naproxen, tylenol. Admits to a lot of stress in the last week. Sleeping good. She saw neurology. Rec Elavil. Not started yet. May try for . Daily headaches. Hip pain is better. Some dry patches in skin. MVP, congenital hip dysplasia Brief Rheumatological history - More pain. In bed all day for few days last weekend. No energy. inflammatory markers have been high since sep. Whole body pain. PCP started Medrol pock which helped. Low back pain, hips, knees, some swelling in hands, legs. Am stiffness lasting all day. Mornings and evenings are hard. Episodes of pain since sep. Current flare up started 6 days ago. She also takes tylenol, ibuprofen. Nigh time awakening siwth back pain. Sometimes pleuritic chest pain. Colitis x few times Headaches daily. Not seen a neurologist. Mother had myopathy. Bedridden for an year. 3 pregnancies. 22 weeks, early trimester. One baby 20 months. 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 CONSTITUTIONAL: Recent Weight change: No Fever: No EYES: Dryness in nose: No Dryness of mouth: No Oral ulcers: No CARDIOVASCULAR: Pain in chest: No RESPIRATORY: Shortness of breath: No Cough: No GASTROINTESTINAL: Nausea: No Vomiting: No Changes in bowel movements: No Jaundice: No Heartburn: No MUSCULOSKELETAL: Per HPI INTEGUMENTARY: Rash: No HEMATOLOGIC/LYMPHATIC: Anemia: No NEUROLOGICAL SYSTEM: Headaches: No Sensitivity or pain of hands and/or feet: No PSYCHIATRIC: Anxiety: No Poor sleep: No HISTORY REVIEWED (electronic chart updated): PAST MEDICAL HISTORY Diagnosis Date Other specified iron deficiency anemias PAST SURGICAL HISTORY Procedure Laterality Date PAST SURGICAL HISTORY OF L congenital hip dysplasia x 1988 TONSILLECTOMY HX FAMILY HISTORY Problem Relation Age of Onset Arthritis Mother PsA Heart Mother Mitral valve/tricuspid valve prolapse Myopathy Mother None Father other (Myltiple myeloma) Father None Sister None Sister None Sister Social History Tobacco Use Smoking status: Never Smokeless tobacco: Never Vaping Use Vaping Use: Never used Substance Use Topics Alcohol use: No Drug use: No Current Outpatient Medications Medication Sig predniSONE (DELTASONE) 5 mg tablet Take 3 tablets for 1 week, 2 tabs for 1 week, 1 tab for 1 week, then stop HUMIRA,CF, PEN 40 mg/0.4 mL pen kit INJECT 40MG SUBCUTANEOUSLY EVERY 2 WEEKS amitriptyline (ELAVIL) 10 mg tablet Take 1 tablet by mouth daily at bedtime. multivitamin/iron/folic acid (CENTRUM COMPLETE ORAL) Take 1 Each by mouth once daily. Centrum multi gummies (Patient not taking: Reported on 07/05/2022) cholecalciferol, vitamin D3, (VITAMIN D3 ORAL) Take 4,000 Units by mouth once daily. (Patient not taking: Reported on 07/05/2022) loratadine (CLARITIN) 10 mg tablet Take 10 mg by mouth once daily. (Patient not taking: Reported on 07/05/2022) naproxen (NAPROSYN) 500 mg tablet Take 1 tablet by mouth twice daily as needed (for pain). Take with food No current facility-administered medications for this visit. ALLERGIES Allergen Reactions Motrin [Ibuprofen] Other: See Comments Patient states, I think that was a fluke, I take it now. Reaction as a child. 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 There is no electrodiagnostic evidence for peripheral neuropathy. IMPRESSION: Normal x-ray examination of the chest. ACL IgM 17 Hb 11.5 CRP 26 (0-3) ESR 59 Normal other APLS, C3, C4, HLA B27, Ds DNAm LYUDMILA neg, HUMA , CK, CCP, Jena 1 LYUDMILA direct positive FINDINGS: Normal lumbar lordosis. There is no substantial scoliosis. There is a normal alignment of the vertebrae. Normal vertebral bodies and endplates. Normal disc space heights. The soft tissue structures are unremarkable. FINDINGS: There are mild erosions and iliac sided sclerosis of the bilateral sacroiliac joints. Normal visualized sacral ala and sacrum. Normal visualized iliac bones. Normal visualized soft tissue structures. IMPRESSION: Bilateral, relatively symmetric sacroiliitis (enteropathic arthritis, ankylosing spondylitis, rheumatoid arthritis). ASSESSMENT: (M45.9) Ankylosing spondylitis, unspecified site of spine (HCC) (primary encounter diagnosis) (Z79.899) High risk medication use PLAN: 31-year-old female is here for follow up for joint pain. Patient has history of positive LYUDMILA, miscarriage, chronic low back pain and family history of autoimmune disease. She also has personal history of unexplained colitis. bl sacroiliitis on x rays, h/o colitis. Dx Ankylosing spondylitis or IBD related arthritis. Slightly elevated APL. Monitor. May need to see high lift operator for future pregnancies. Continue Humira started 05/20. Daily headaches, neck pain, sometimes lightheadedness and numbness over neck muscles. Will refer to neurology. Flare of ? Pred course. May switch to Enbrel or Simponi or Cimzia. Advise Mag. May need to start Elavil if no improvement with pred. labs There are no Patient Instructions on file for this visit. I spent a total of 20 minutes on the date of the service which included preparing to see the patient, [id number] patient care, completing clinical documentation, obtaining and/or reviewing separately obtained history, communicating with other HCPs (not separately reported), and communicating results to the patient/family/caregiver Enma Troncoso MD [facility] on 11/06/22 CBC + DIFF COMP METABOLIC PANEL C-REACTIVE PROTEIN (CRP) SED RATE WESTERGREN VITAMIN D 25 HYDROXY No orders of the defined types were placed in this encounter. Platform used - my chart documented in this encounter [facility] 10-21-2022 Miscellaneous Notes This patient gave consent to this Medical Advice Message and is aware that it may result in a bill to their insurance, as well as the possibility of receiving a bill for a copay and/or deductible. They are an established patient, but are not seeking information exclusively about a problem treated during an in person or video visit in the last seven days. I did not recommend an in person or video visit within seven days of my reply. See the [employer] message reply for my assessment and plan. I spent a total of 5 minutes reviewing the patient's prior medical records and current request for medical advice, prescribing medications or ordering tests (if applicable), replying to the patient, and documenting the encounter. documented in this encounter [facility] 10-08-2022 Note HNO ID: [id number] Author: Enma Troncoso MD Service: ? Author Type: Physician Type: Progress Notes Filed: 10/08/2022 12:52 PM Note Text: VIRTUAL VISIT PROGRESS NOTE This is a virtual visit using [employer] video visit. It required patient-provider interaction for the medical decision making as documented below. Dorothy Shell is a 32 year old female seen for . She thinks she is in a flare. More neck pain, headaches, low back pain. Pain worsens towards the end of the day. Took naproxen, tylenol. Admits to a lot of stress in the last week. Sleeping good. She saw neurology. Rec Elavil. Not started yet. May try for . Daily headaches. Hip pain is better. Some dry patches in skin. MVP, congenital hip dysplasia Brief Rheumatological history - More pain. In bed all day for few days last weekend. No energy. inflammatory markers have been high since sep. Whole body pain. PCP started Medrol pock which helped. Low back pain, hips, knees, some swelling in hands, legs. Am stiffness lasting all day. Mornings and evenings are hard. Episodes of pain since sep. Current flare up started 6 days ago. She also takes tylenol, ibuprofen. Nigh time awakening siwth back pain. Sometimes pleuritic chest pain. Colitis x few times Headaches daily. Not seen a neurologist. Mother had myopathy. Bedridden for an year. 3 pregnancies. 22 weeks, early trimester. One baby 20 months. 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 CONSTITUTIONAL: Recent Weight change: No Fever: No EYES: Dryness in nose: No Dryness of mouth: No Oral ulcers: No CARDIOVASCULAR: Pain in chest: No RESPIRATORY: Shortness of breath: No Cough: No GASTROINTESTINAL: Nausea: No Vomiting: No Changes in bowel movements: No Jaundice: No Heartburn: No MUSCULOSKELETAL: Per HPI INTEGUMENTARY: Rash: No HEMATOLOGIC/LYMPHATIC: Anemia: No NEUROLOGICAL SYSTEM: Headaches: No Sensitivity or pain of hands and/or feet: No PSYCHIATRIC: Anxiety: No Poor sleep: No HISTORY REVIEWED (electronic chart updated): PAST MEDICAL HISTORY Diagnosis Date Other specified iron deficiency anemias PAST SURGICAL HISTORY Procedure Laterality Date PAST SURGICAL HISTORY OF L congenital hip dysplasia x 1988 TONSILLECTOMY HX FAMILY HISTORY Problem Relation Age of Onset Arthritis Mother PsA Heart Mother Mitral valve/tricuspid valve prolapse Myopathy Mother None Father other (Myltiple myeloma) Father None Sister None Sister None Sister Social History Tobacco Use Smoking status: Never Smokeless tobacco: Never Vaping Use Vaping Use: Never used Substance Use Topics Alcohol use: No Drug use: No Current Outpatient Medications Medication Sig predniSONE (DELTASONE) 5 mg tablet Take 3 tablets for 1 week, 2 tabs for 1 week, 1 tab for 1 week, then stop HUMCHELSEACF, PEN 40 mg/0.4 mL pen kit INJECT 40MG SUBCUTANEOUSLY EVERY 2 WEEKS amitriptyline (ELAVIL) 10 mg tablet Take 1 tablet by mouth daily at bedtime. multivitamin/iron/folic acid (CENTRUM COMPLETE ORAL) Take 1 Each by mouth once daily. Centrum multi gummies (Patient not taking: Reported on 07/05/2022) cholecalciferol, vitamin D3, (VITAMIN D3 ORAL) Take 4,000 Units by mouth once daily. (Patient not taking: Reported on 07/05/2022) loratadine (CLARITIN) 10 mg tablet Take 10 mg by mouth once daily. (Patient not taking: Reported on 07/05/2022) naproxen (NAPROSYN) 500 mg tablet Take 1 tablet by mouth twice daily as needed (for pain). Take with food No current facility-administered medications for this visit. ALLERGIES Allergen Reactions Motrin [Ibuprofen] Other: See Comments Patient states, I think that was a fluke, I take it now. Reaction as a child. 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 There is no electrodiagnostic evidence for peripheral neuropathy. IMPRESSION: Normal x-ray examination of the chest. ACL IgM 17 Hb 11.5 CRP 26 (0-3) ESR 59 Normal other APLS, C3, C4, HLA B27, Ds DNAm LYUDMILA neg, HUMA , CK, CCP, Jena 1 LYUDMILA direct positive FINDINGS: Normal lumbar lordosis. There is no substantial scoliosis. There is a normal alignment of the vertebrae. Normal vertebral bodies and endplates. Normal disc space heights. The soft tissue structures are unremarkable. FINDINGS: There are mild erosions and iliac sided sclerosis of the bilateral sacroiliac joints. Normal visualized sacral ala and sacrum. Normal visualized iliac bones. Normal visualized soft tissue struc (more content not included)... [facility] 10-08-2022 History of Presen t illness Narrative VIRTUAL VISIT PROGRESS NOTE This is a virtual visit using [employer] video visit. It required patient-provider interaction for the medical decision making as documented below. Dorothy Shell is a 32 year old female seen for . She thinks she is in a flare. More neck pain, headaches, low back pain. Pain worsens towards the end of the day. Took naproxen, tylenol. Admits to a lot of stress in the last week. Sleeping good. She saw neurology. Rec Elavil. Not started yet. May try for . Daily headaches. Hip pain is better. Some dry patches in skin. MVP, congenital hip dysplasia Brief Rheumatological history - More pain. In bed all day for few days last weekend. No energy. inflammatory markers have been high since sep. Whole body pain. PCP started Medrol pock which helped. Low back pain, hips, knees, some swelling in hands, legs. Am stiffness lasting all day. Mornings and evenings are hard. Episodes of pain since sep. Current flare up started 6 days ago. She also takes tylenol, ibuprofen. Nigh time awakening siwth back pain. Sometimes pleuritic chest pain. Colitis x few times Headaches daily. Not seen a neurologist. Mother had myopathy. Bedridden for an year. 3 pregnancies. 22 weeks, early trimester. One baby 20 months. 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 CONSTITUTIONAL: Recent Weight change: No Fever: No EYES: Dryness in nose: No Dryness of mouth: No Oral ulcers: No CARDIOVASCULAR: Pain in chest: No RESPIRATORY: Shortness of breath: No Cough: No GASTROINTESTINAL: Nausea: No Vomiting: No Changes in bowel movements: No Jaundice: No Heartburn: No MUSCULOSKELETAL: Per HPI INTEGUMENTARY: Rash: No HEMATOLOGIC/LYMPHATIC: Anemia: No NEUROLOGICAL SYSTEM: Headaches: No Sensitivity or pain of hands and/or feet: No PSYCHIATRIC: Anxiety: No Poor sleep: No HISTORY REVIEWED (electronic chart updated): PAST MEDICAL HISTORY Diagnosis Date Other specified iron deficiency anemias PAST SURGICAL HISTORY Procedure Laterality Date PAST SURGICAL HISTORY OF L congenital hip dysplasia x 1988 TONSILLECTOMY HX FAMILY HISTORY Problem Relation Age of Onset Arthritis Mother PsA Heart Mother Mitral valve/tricuspid valve prolapse Myopathy Mother None Father other (Myltiple myeloma) Father None Sister None Sister None Sister Social History Tobacco Use Smoking status: Never Smokeless tobacco: Never Vaping Use Vaping Use: Never used Substance Use Topics Alcohol use: No Drug use: No Current Outpatient Medications Medication Sig predniSONE (DELTASONE) 5 mg tablet Take 3 tablets for 1 week, 2 tabs for 1 week, 1 tab for 1 week, then stop HUMIRA,CF, PEN 40 mg/0.4 mL pen kit INJECT 40MG SUBCUTANEOUSLY EVERY 2 WEEKS amitriptyline (ELAVIL) 10 mg tablet Take 1 tablet by mouth daily at bedtime. multivitamin/iron/folic acid (CENTRUM COMPLETE ORAL) Take 1 Each by mouth once daily. Centrum multi gummies (Patient not taking: Reported on 07/05/2022) cholecalciferol, vitamin D3, (VITAMIN D3 ORAL) Take 4,000 Units by mouth once daily. (Patient not taking: Reported on 07/05/2022) loratadine (CLARITIN) 10 mg tablet Take 10 mg by mouth once daily. (Patient not taking: Reported on 07/05/2022) naproxen (NAPROSYN) 500 mg tablet Take 1 tablet by mouth twice daily as needed (for pain). Take with food No current facility-administered medications for this visit. ALLERGIES Allergen Reactions Motrin [Ibuprofen] Other: See Comments Patient states, I think that was a fluke, I take it now. Reaction as a child. 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 There is no electrodiagnostic evidence for peripheral neuropathy. IMPRESSION: Normal x-ray examination of the chest. ACL IgM 17 Hb 11.5 CRP 26 (0-3) ESR 59 Normal other APLS, C3, C4, HLA B27, Ds DNAm LYUDMILA neg, HUMA , CK, CCP, Jena 1 LYUDMILA direct positive FINDINGS: Normal lumbar lordosis. There is no substantial scoliosis. There is a normal alignment of the vertebrae. Normal vertebral bodies and endplates. Normal disc space heights. The soft tissue structures are unremarkable. FINDINGS: There are mild erosions and iliac sided sclerosis of the bilateral sacroiliac joints. Normal visualized sacral ala and sacrum. Normal visualized iliac bones. Normal visualized soft tissue structures. IMPRESSION: Bilateral, relatively symmetric sacroiliitis (enteropathic arthritis, ankylosing spondylitis, rheumatoid arthritis). ASSESSMENT: (M25.50) Pain in joint, multiple sites (primary encounter diagnosis) (M45.9) Ankylosing spondylitis, unspecified site of spine ([facility]) (Z79.899) High risk medication use PLAN: 31-year-old female is here for follow up for joint pain. Patient has history of positive LYUDMILA, miscarriage, chronic low back pain and family history of autoimmune disease. She also has personal history of unexplained colitis. bl sacroiliitis on x rays, h/o colitis. Dx Ankylosing spondylitis or IBD related arthritis. Slightly elevated APL. Monitor. May need to see high lift operator for future pregnancies. Continue Humira started 05/20. Daily headaches, neck pain, sometimes lightheadedness and numbness over neck muscles. Will refer to neurology. Flare of ? Pred course. May switch to Enbrel or Simponi or Cimzia. Advise Mag. May need to start Elavil if no improvement with pred. labs There are no Patient Instructions on file for this visit. I spent a total of 20 minutes on the date of the service which included preparing to see the patient, [id number] patient care, completing clinical documentation, obtaining and/or reviewing separately obtained history, communicating with other HCPs (not separately reported), and communicating results to the patient/family/caregiver Enma Troncoso MD [facility] on 10/08/22 C-REACTIVE PROTEIN (CRP) SED RATE WESTERGREN CBC + DIFF COMP METABOLIC PANEL VITAMIN D 25 HYDROXY Orders Placed This Encounter predniSONE (DELTASONE) 5 mg tablet Sig: Take 3 tablets for 1 week, 2 tabs for 1 week, 1 tab for 1 week, then stop Dispense: 42 tablet Refill: 0 Platform used - my chart documented in this encounter [facility] 09-18-2022 Miscellaneous Notes Pharmacy requesting the following refill. Requested Prescriptions Pending Prescriptions Disp Refills HUMIRA,CF, PEN 40 mg/0.4 mL pen kit [Pharmacy Med Name: Humira Pen 40 MG/0.4ML Subcutaneous Pen-injector Kit] 2 Each 2 Sig: INJECT 40MG SUBCUTANEOUSLY EVERY 2 WEEKS Patient last appointment: 07/05/2022 Vince Next Appointment: 10/08/2022 Vince Patient Phone numbers: [phone] (home) Request is for script(s) to be escript to pharmacy. [facility] [place] [address] - [address] [facility] [phone] Bhakti Perry LPN documented in this encounter [facility] 09-10-2022 Note HNO ID: [id number] Author: Marine Obregon MD Service: ? Author Type: Physician Type: Progress Notes Filed: 09/10/2022 2:10 PM Note Text: VIRTUAL VISIT PROGRESS NOTE This is a virtual visit using [employer] video visit. It required patient-provider interaction for the medical decision making as documented below. Dorothy Shell is a 31 year old female seen for headaches. Patient states that her headache has been more frequent for the last year, She used to get headaches frequently but not daily like now This year they are worse than before, being daily can be disabling, Affecting her concentration , she also gets photophobia phonophobia No Nausea no vomiting, if she has a possibility of lying down She would prefer to lie down in a dark quiet room But sometimes she continues to work, she takes [id number] medications nonsteroidal anti-inflammatory with partial relief She tried Excedrin which also works but makes her very little really so she did not try it again she hates the feeling that it gave her. 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 Back and hip pain because of anklylosing spondylitis chronic joint pain, Which is preventing her from sleep No neck pain no incontinence of urine or bowel no focal weakness or numbness HISTORY REVIEWED (electronic chart updated): PAST MEDICAL HISTORY Diagnosis Date Other specified iron deficiency anemias PAST SURGICAL HISTORY Procedure Laterality Date PAST SURGICAL HISTORY OF L congenital hip dysplasia x 1988 TONSILLECTOMY HX FAMILY HISTORY Problem Relation Age of Onset Arthritis Mother PsA Heart Mother Mitral valve/tricuspid valve prolapse Myopathy Mother None Father other (Myltiple myeloma) Father None Sister None Sister None Sister Social History Tobacco Use Smoking status: Never Smokeless tobacco: Never Vaping Use Vaping Use: Never used Substance Use Topics Alcohol use: No Drug use: No Current Outpatient Medications Medication Sig amitriptyline (ELAVIL) 10 mg tablet Take 1 tablet by mouth daily at bedtime. adalimumab 40 mg/0.4 mL subcutaneous pen kit (HUMIRA (CF)) Inject 40 mg subcutaneously every 2 weeks. Citrate free PENS multivitamin/iron/folic acid (CENTRUM COMPLETE ORAL) Take 1 Each by mouth once daily. Centrum multi gummies (Patient not taking: Reported on 07/05/2022) cholecalciferol, vitamin D3, (VITAMIN D3 ORAL) Take 4,000 Units by mouth once daily. (Patient not taking: Reported on 07/05/2022) loratadine (CLARITIN) 10 mg tablet Take 10 mg by mouth once daily. (Patient not taking: Reported on 07/05/2022) naproxen (NAPROSYN) 500 mg tablet Take 1 tablet by mouth twice daily as needed (for pain). Take with food No current facility-administered medications for this visit. ALLERGIES Allergen Reactions Motrin [Ibuprofen] Other: See Comments Patient states, I think that was a fluke, I take it now. Reaction as a child. REVIEW OF SYSTEMS: GENERAL: no recent change in weight, no fever, activity level is normal PHYSICAL EXAMINATION: VIDEO EXAM: (if completed, performed via video enabled technology) GENERAL: alert and appropriate, in no distress and well-hydrated, well nourished SKIN: no rash noted ASSESSMENT: No diagnosis found. PLAN: Acute and preventive medications for headache Elavil 10 mg every night for headache and pain, will also help her to sleep better at night Side effects explained to the patient Patient Instructions Acute Headache Treatment: (What to take as-needed for headache) 1) at earliest sign of migraine. May repeat once in 2 hours. Do not use more than 10 days per month. Headache Preventive Treatment (What to take on a daily basis to try to lessen frequency and/or intensity of headache): *Please keep in mind that it takes 4-6 weeks for the medication to start working well and 2-3 months at the appropriate dose before deciding if it will be useful or not. If it is not helping at all by this time, then we will discuss other medications to try. Supplements may take 3-6 months until you see full effect. 2) Consider adding supplements: Magnesium 400-800 mg daily. Magnesium glycinate is a good choice for those with a sensitive stomach who have gastrointestinal side effects such as diarrhea with other forms of magnesium. It is anecdotally also helpful with anxiety and sleep. Magnesium threonate also has low risk of gastrointestinal side effects and anecdotally helpful with cognitive function and brain fog symp (more content not included)... [facility] 08-09-2022 Miscellaneous Notes Pt had question about restarting humira related to recent sinus infection. Per a my chart message that did respond to- ok to resume humira tomorrow. I did LVMM for the pt as well. Katherine Dasilva LPN documented in this encounter [facility] 08-04-[address] moore appt on 09/12 needs rescheduled. 1st attempt, sent [facility] message. documented in this encounter [facility] 08-01-2022 Miscellaneous Notes Patient left a vm stating she has had a cold. Symptoms include TODD, sinus congestion, onset 1.5 weeks ago. Patient states it's not Covid. Patient states it is a virus or something and her baby had it too. Patient is due for Humira injection tomorrow. Patient would like to know if she should hold Humira. I reached out to the patient to ask more information, left vm. Bhakti Perry LPN documented in this encounter [facility] 04-29-2022 Miscellaneous Notes Patient is aware of the message. Ok to start when infections improves Patient called and stated she was going to start her Humira injection this afternoon, but she recently saw her dentist for an oral infection and was given penicillin to take 4 times a day. Patient asked if she needed to hold taking the Humira? What are your instructions? documented in this encounter [facility] 03-19-2022 Miscellaneous Notes Humira PENDING with [facility]cover my meds/cigna Delma [employer] [place] [employer] documented in this encounter [facility] 03-16-2022 Miscellaneous Notes Please follow up on Joycelyn PA documented in this encounter [facility] 03-05-2022 History of Presen t illness Narrative VIRTUAL VISIT PROGRESS NOTE This is a virtual visit using [employer] video visit. It required patient-provider interaction for the medical decision making as documented below. Dorothy Shell is a 31 year old female seen for joint pain. Low back pain. MVP, congenital hip dysplasia More pain. In bed all day for few days last weekend. No energy. inflammatory markers have been high since sep. Whole body pain. PCP started Medrol pock which helped. Low back pain, hips, knees, some swelling in hands, legs. Am stiffness lasting all day. Mornings and evenings are hard. Episodes of pain since sep. Current flare up started 6 days ago. She also takes tylenol, ibuprofen. Nigh time awakening siwth back pain. Sometimes pleuritic chest pain. Colitis x few times Headaches daily. Not seen a neurologist. Mother had myopathy. Bedridden for an year. 3 pregnancies. 22 weeks, early trimester. One baby 20 months. 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 HISTORY REVIEWED (electronic chart updated): PAST MEDICAL HISTORY Diagnosis Date Other specified iron deficiency anemias PAST SURGICAL HISTORY Procedure Laterality Date PAST SURGICAL HISTORY OF L congenital hip dysplasia x 1988 TONSILLECTOMY HX FAMILY HISTORY Problem Relation Age of Onset Arthritis Mother PsA Heart Mother Mitral valve/tricuspid valve prolapse Myopathy Mother None Father other (Myltiple myeloma) Father None Sister None Sister None Sister Social History Tobacco Use Smoking status: Never Smoker Smokeless tobacco: Never Used Vaping Use Vaping Use: Never used Substance Use Topics Alcohol use: No Drug use: No Current Outpatient Medications Medication Sig adalimumab 40 mg/0.4 mL subcutaneous pen kit (HUMIRA (CF)) Inject 40 mg subcutaneously every 2 weeks. Citrate free PENS multivitamin/iron/folic acid (CENTRUM COMPLETE ORAL) Take 1 Each by mouth once daily. Centrum multi gummies cyanocobalamin (VITAMIN B-12) 1,000 mcg tab Take 1,000 mcg by mouth once daily. cholecalciferol, vitamin D3, (VITAMIN D3 ORAL) Take 4,000 Units by mouth once daily. loratadine (CLARITIN) 10 mg tablet Take 10 mg by mouth once daily. Desogestrel-Ethinyl Estradiol (VOLNEA, 28,) 0.15-0.02 mgx21 /0.01 mg x 5 per tablet Take 1 tablet by mouth once daily. methylPREDNISolone (MEDROL) 4 mg Take 4 mg by mouth as directed. Taper dose naproxen (NAPROSYN) 500 mg tablet Take 1 tablet by mouth twice daily as needed (for pain). Take with food No current facility-administered medications for this visit. ALLERGIES Allergen Reactions Motrin [Ibuprofen] Other: See Comments Patient states, I think that was a fluke, I take it now. Reaction as a child. REVIEW OF SYSTEMS: All other ROS: negative As noted in HPI PHYSICAL EXAMINATION: VIDEO EXAM: (if completed, performed via video enabled technology) GENERAL: alert and appropriate, in no distress, well-hydrated, well nourished and happy, smiling, interactive Serology: CCP neg, RF, other HUMA LYUDMILA direct, ds DNA positive , 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 There is no electrodiagnostic evidence for peripheral neuropathy. IMPRESSION: Normal x-ray examination of the chest. ACL IgM 17 Hb 11.5 CRP 26 (0-3) ESR 59 Normal other APLS, C3, C4, HLA B27, Ds DNAm LYUDMILA neg, HUMA , CK, CCP, Jena 1 LYUDMILA direct positive FINDINGS: Normal lumbar lordosis. There is no substantial scoliosis. There is a normal alignment of the vertebrae. Normal vertebral bodies and endplates. Normal disc space heights. The soft tissue structures are unremarkable. FINDINGS: There are mild erosions and iliac sided sclerosis of the bilateral sacroiliac joints. Normal visualized sacral ala and sacrum. Normal visualized iliac bones. Normal visualized soft tissue structures. IMPRESSION: Bilateral, relatively symmetric sacroiliitis (enteropathic arthritis, ankylosing spondylitis, rheumatoid arthritis). ASSESSMENT: (M45.9) Ankylosing spondylitis, unspecified site of spine ([facility]) (primary encounter diagnosis) (Z79.899) High risk medication use (K52.9) Colitis (R76.8) LYUDMILA positive (M25.50) Pain in joint, multiple sites PLAN: 31-year-old female is here for evaluation management recommendation for joint pain. Patient has history of positive LYUDMILA, miscarriage, chronic low back pain and family history of autoimmune disease. She also has personal history of unexplained colitis. bl sacroiliitis on x rays, h/o colitis. Dx Ankylosing spondylitis or IBD related arthritis. Advise biologics. Risks and benefits explained. Slightly elevated APL. Monitor. May need to see high lift operator for future pregnancies. There are no Patient Instructions on file for this visit. I spent a total of 20 minutes on the date of the service which included preparing to see the patient, [id number] patient care, completing clinical documentation, obtaining and/or reviewing separately obtained history, ordering medications, tests, or procedures and communicating results to the patient/family/caregiver Enma Troncoso MD [facility] on 03/05/22 BLOOD TB SCREEN, INCUBATED HEP B SURF AG SCRN HEP B SURF AB QUANT HEP C AB IA W/CONF SCRN HEP B CORE AB TOTAL Medication orders placed this encounter adalimumab 40 mg/0.4 mL subcutaneous pen kit (HUMIRA (CF)) Sig: Inject 40 mg subcutaneously every 2 weeks. Citrate free PENS Dispense: 2 Pen Refill: 2 Platform used - my chart documented in this encounter [facility] 02-01-2022 History of Presen t illness Narrative More pain. In bed all day for few days last weekend. No energy. inflammatory markers have been high since sep. Whole body pain. PCP started Medrol pock which helped. Low back pain, hips, knees, some swelling in hands, legs. Am stiffness lasting all day. Mornings and evenings are hard. Episodes of pain since sep. Current flare up started 6 days ago. She also takes tylenol, ibuprofen. Nigh time awakening siwth back pain. Sometimes pleuritic chest pain. Colitis x few times Headaches daily. Not seen a neurologist. Mother had myopathy. Bedridden for an year. 3 pregnancies. 22 weeks, early trimester. One baby 20 months. 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 MVP, congenital hip dysplasia More pain. In bed all day for few days last weekend. No energy. inflammatory markers have been high since sep. Whole body pain. PCP started Medrol pock which helped. Low back pain, hips, knees, some swelling in hands, legs. Am stiffness lasting all day. Mornings and evenings are hard. Episodes of pain since sep. Current flare up started 6 days ago. She also takes tylenol, ibuprofen. Nigh time awakening siwth back pain. Sometimes pleuritic chest pain. Colitis x few times Headaches daily. Not seen a neurologist. Mother had myopathy. Bedridden for an year. 3 pregnancies. 22 weeks, early trimester. One baby 20 months. 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 Family history of autoimmune disease: mother with PsA Smoking status: Tobacco Use: Never Rheumatology REVIEW OF SYSTEMS: Constitutional: Recent Weight Change: No Fatigue: No Fever: No Night sweats: No Heent: Alopecia: No H/o Inflammatory eye disease (iritis/scleritis): No Hearing loss: No Frequent sinusitis: No Oral ulcers: No Sicca: No Parotid swelling: No Hoarseness: No Dysphagia: No Heme/lymph: Lymphadenopathy: No Hematological abnormalities (anemia, thrombocytopenia, leukopenia): No Abnormal bleeding: No Skin: Malar or discoid lesions: No Photosensitivity: No Other rashes: No Raynaud's phenomenon: No Hives: No Tightness: No Nodules/bumps: No Easy Bruising: No Nail changes: No H/o psoriasis: No Gastroenterology: Nausea: {No Vomiting: No Change in bowel movements: No Heartburn: No Respiratory: Dry cough/SOB: No Cardiovascular: Pain in chest: No Musculoskeletal: Per HPI Joint pain or swelling: No Prolonged morning stiffness: No Back pain or neck pain: No Muscle weakness: No Genitourinary: Vaginal dryness: No Rash/ulcers: No Neurological: Headaches: No Sensitivity or pain of hands and/or feet: No Psychiatry: Anxiety: No Depression: No Poor sleep: No H/o loss: No H/o thrombosis: No Increased susceptibility to infection: No PAST MEDICAL HISTORY Diagnosis Date Other specified iron deficiency anemias PAST SURGICAL HISTORY Procedure Laterality Date PAST SURGICAL HISTORY OF L congenital hip dysplasia x 1988 TONSILLECTOMY HX Current Outpatient Medications Medication Sig multivitamin/iron/folic acid (CENTRUM COMPLETE ORAL) Take 1 Each by mouth once daily. Centrum multi gummies cyanocobalamin (VITAMIN B-12) 1,000 mcg tab Take 1,000 mcg by mouth once daily. cholecalciferol, vitamin D3, (VITAMIN D3 ORAL) Take 4,000 Units by mouth once daily. loratadine (CLARITIN) 10 mg tablet Take 10 mg by mouth once daily. Desogestrel-Ethinyl Estradiol (VOLNEA, 28,) 0.15-0.02 mgx21 /0.01 mg x 5 per tablet Take 1 tablet by mouth once daily. methylPREDNISolone (MEDROL) 4 mg Take 4 mg by mouth as directed. Taper dose naproxen (NAPROSYN) 500 mg tablet Take 1 tablet by mouth twice daily as needed (for pain). Take with food No current facility-administered medications for this visit. ALLERGIES Allergen Reactions Motrin [Ibuprofen] Other: See Comments Patient states, I think that was a fluke, I take it now. Reaction as a child. FAMILY HISTORY Problem Relation Age of Onset Arthritis Mother PsA Heart Mother Mitral valve/tricuspid valve prolapse Myopathy Mother None Father other (Myltiple myeloma) Father None Sister None Sister None Sister Social History Tobacco Use Smoking status: Never Smoker Smokeless tobacco: Never Used Vaping Use Vaping Use: Never used Substance Use Topics Alcohol use: No Drug use: No Occupation: Employer And Job Title: None on file Years Of Education Completed: Not specified Marital Status: History Review: I have reviewed and modified as needed, the following during this visit: Allergies, Past Medical History, Past Surgical History, Past Family History, Past Social History. BP 106/70 Pulse 94 Temp (!) 33.7 C (92.6 F) (Temporal) Resp 12 Ht 165.1 cm (5' 5 ) Wt 74.8 kg (165 lb) LMP (LMP Unknown) BMI 27.46 kg/m Physical Exam GENERAL: Well appearing, alert, comfortable, in no acute distress, well-hydrated, well nourished. HEENT: Negative for external ears normal. Canals are clear. Both TMs visualized and are normal. Eye Exam normal. External nose normal, no nasal ulcer or throat ulcer. NECK: NECK Supple, no adenopathy; thyroid symmetric, normal size, no bruits CARDIAC: regular rate and rhythm, No murmur asculated. and Equal peripheral pulses RESPIRATORY: Lungs clear to auscultation. No wheezing, rhonchi, rales VASCULAR: RRR without murmur, gallop, or rubs. No ectopy. ABDOMEN: Soft, non tender. BS active. No masses or organomegaly. LYMPHATIC: Negative for adenopathy in the neck, axillae, groin, supraclavicular and auricular. NEURO: Motor and sensory exam normal MOTOR: Normal; including tone, gait, stressed gait, power and coordination. SKIN: Negative for alopecia, skin rash, malar rash, skin lesion, skin ulcer, pits, thickening, color changes, telangiectasias, nail changes, nail ridging, nail pitting, onycholysis MUSCULOSKELETAL: DIPS: Normal PIPS: Normal MCPs: Normal Wrists: Normal Elbows: Normal Shoulders: Normal C-Spine: Normal Hips: Normal Knees: Normal Ankles: Normal MTPs / Toes: Normal Arches: Normal Summary of old labs/radiology: Review/request of outside labs and imaging: Pertinent labs: Glucose 87 06/01/2014 ALT 11 06/01/2014 WBC 4.07 06/01/2014 Hemoglobin 12.3 06/01/2014 Platelet Count 168 06/01/2014 Serology: CCP neg, RF, other HUMA LYUDMILA direct, ds DNA positive , 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 There is no electrodiagnostic evidence for peripheral neuropathy. IMPRESSION: Normal x-ray examination of the chest. Assessment and Plan (R76.8) Positive LYUDMILA (antinuclear antibody) (primary encounter diagnosis) (M54.50) Low back pain, unspecified back pain laterality, unspecified chronicity, unspecified whether sciatica present 31-year-old female is here for evaluation management recommendation for joint pain. Patient has history of positive LYUDMILA, miscarriage, chronic low back pain and family history of autoimmune disease. She also has personal history of unexplained colitis. Autoimmune diseases possible and cannot be ruled out completely. Work-up with following labs and x-rays. Close follow-up to discuss results. May consider the use of hydroxychloroquine. Office Visit on 02/01/22 XR LUMBAR LIMITED 2V AP/LAT XR SACROILIAC JOINTS 2V AP PELVIS/FERGUESON LYUDMILA BY IFA SCREEN CRITHIDIA LUCILIAE DNA ANTIBODY DS BLD C3 COMPLEMENT BLD C4 COMPLEMENT BLD PERFORMANCE IMPROVEMENT ANALYST ANTIBODY BLOOD VILLALBA IGG AB SJOGREN ABS SSA/SSB ANTI-CARDIOLIPIN AB DILUTE RVVT B 2 GPI IGG & IGM CK CREATINE KINASE CBC + DIFF COMP METABOLIC PANEL VITAMIN D 25 HYDROXY C-REACTIVE PROTEIN (CRP) SED RATE WESTERGREN FERRITIN BLD IRON + TIBC UA WITH CULTURE IF INDICATED CREATININE RANDOM UR PROTEIN RANDOM UR HLA-B27 PCR Medication orders placed this encounter naproxen (NAPROSYN) 500 mg tablet Sig: Take 1 tablet by mouth twice daily as needed (for pain). Take with food Dispense: 60 tablet Refill: 1 No follow-ups on file. Enma Troncoso MD documented in this encounter [facility] Ankylosing spondylitis, unspecified site of spine (HCC)- Primary High risk medication use Encounter for long-term (current) use of other medications Colitis Other and unspecified noninfectious gastroenteritis and colitis LYUDMILA positive Other and unspecified nonspecific immunological findings Pain in joint, multiple sites [facility] Diagnosis High risk medication use Encounter for long-term (current) use of other medications [facility] Diagnosis Pain in joint, multiple sites- Primary Ankylosing spondylitis, unspecified site of spine (HCC) High risk medication use Encounter for long-term (current) use of other medications documented in this encounter [facility] note* Diagnosis Ankylosing spondylitis, unspecified site of spine (HCC)- Primary High risk medication use Encounter for long-term (current) use of other medications documented in this encounter [facility] note* Diagnosis Ankylosing spondylitis, unspecified site of spine (HCC)- Primary High risk medication use Encounter for long-term (current) use of other medications [facility] Diagnosis Chronic daily headache- Primary Headache Chronic tension-type headache, intractable Chronic tension type headache documented in this encounter [facility] note* Diagnosis Chronic daily headache- Primary Headache documented in this encounter [facility] Reason for Referral Specialty Diagnoses / Procedures Referred By Curtis mcbride Referred To Contact MOLECULAR & FUNCTIONAL IMAGING Diagnoses Positive LYUDMILA (antinuclear antibody) Low back pain, unspecified back pain laterality, unspecified chronicity, unspecified whether sciatica present Procedures HLA-B27 PCR HLA I LOW RESOLUTION ONE ANTIGEN EQUIVALENT EACH Enma Troncoso MD [address] [place] [address] Molecular & Functional Imaging [address] [place] [address] Referral ID Status Reason Start Date Expiration Date Visits Requested Visits Authorized [id number] Authorized PCP Requested Referral Auto-Generate d Referral 02/01/2022 05/02/2022 1 1 Specialty Diagnoses / Procedures Referred By Curtis mcbride Referred To Contact XR IMAGING Diagnoses Positive LYUDMILA (antinuclear antibody) Procedures XR SACROILIAC JOINTS 2V AP PELVIS/FERGUESON RADIOLOGIC EXAMINATION SACROILIAC JNTS <3 VIEWS Enma Troncoso MD [address] [place] [address] Xr Imaging Referral ID Status Reason Start Date Expiration Date Visits Requested Visits Authorized [id number] Pending Review Auto-Generat ed Referral 02/01/2022 03/03/2023 1 1 Specialty Diagnoses / Procedures Referred By Curtis mcbride Referred To Contact XR IMAGING Diagnoses Positive LYUDMILA (antinuclear antibody) Procedures XR LUMBAR LIMITED 2V AP/LAT RADEX SPINE LUMBOSACRAL 2/3 VIEWS Enma Troncoso MD [address] [facility] [address] [place] [address] Xr Imaging Referral ID Status Reason Start Date Expiration Date Visits Requested Visits Authorized [id number] Pending Review Auto-Generat ed Referral 02/01/2022 03/03/2023 1 1 Specialty Diagnoses / Procedures Referred By Contac t Referred To Contact CT IMAGING Diagnoses Thunderclap headache Procedures CT BRAIN WO IVCON CT HEAD/BRAIN W/O CONTRAST MATERIAL Marine Obregon MD [address] [place] [address] Ct Imaging Referral ID Status Reason Start Date Expiration Date Visits Requested Visits Authorized [id number] Pending Review Auto-Generat ed Referral 12/13/2022 01/12/2024 1 1 Summary Purpose Family History No Family History Records FoundNo Family History Records FoundNo Family History Records Found Advance Directives No Advanced Directives Records FoundNo Advanced Directives Records FoundNo Advanced Directives Records Found Additional Source Comments Source Comments (unrecognize d section and content) In the event this informatio n is protected by the Federal Confidentiality of Alcohol and Drug Abuse Patient Records regulations: The Federal rules restrict any use of the information to criminally investigate or prosecute any alcohol or drug abuse patient.[facility] the event this information is protected by the Federal Confidentiality of Alcohol and Drug Abuse Patient Records regulations: The Federal rules restrict any use of the information to criminally investigate or prosecute any alcohol or drug abuse patient.[facility] the event this information is protected by the Federal Confidentiality of Alcohol and Drug Abuse Patient Records regulations: The Federal rules restrict any use of the information to criminally investigate or prosecute any alcohol or drug abuse patient.[facility] the event this information is protected by the Federal Confidentiality of Alcohol and Drug Abuse Patient Records regulations: The Federal rules restrict any use of the information to criminally investigate or prosecute any alcohol or drug abuse patient.[facility] the event this information is protected by the Federal Confidentiality of Alcohol and Drug Abuse Patient Records regulations: The Federal rules restrict any use of the information to criminally investigate or prosecute any alcohol or drug abuse patient.[facility] the event this information is protected by the Federal Confidentiality of Alcohol and Drug Abuse Patient Records regulations: The Federal rules restrict any use of the information to criminally investigate or prosecute any alcohol or drug abuse patient.[facility] the event this information is protected by the Federal Confidentiality of Alcohol and Drug Abuse Patient Records regulations: The Federal rules restrict any use of the information to criminally investigate or prosecute any alcohol or drug abuse patient.[facility] the event this information is protected by the Federal Confidentiality of Alcohol and Drug Abuse Patient Records regulations: The Federal rules restrict any use of the information to criminally investigate or prosecute any alcohol or drug abuse patient.[facility] the event this information is protected by the Federal Confidentiality of Alcohol and Drug Abuse Patient Records regulations: The Federal rules restrict any use of the information to criminally investigate or prosecute any alcohol or drug abuse patient.[facility] the event this information is protected by the Federal Confidentiality of Alcohol and Drug Abuse Patient Records regulations: The Federal rules restrict any use of the information to criminally investigate or prosecute any alcohol or drug abuse patient.[facility] the event this information is protected by the Federal Confidentiality of Alcohol and Drug Abuse Patient Records regulations: The Federal rules restrict any use of the information to criminally investigate or prosecute any alcohol or drug abuse patient.[facility] the event this information is protected by the Federal Confidentiality of Alcohol and Drug Abuse Patient Records regulations: The Federal rules restrict any use of the information to criminally investigate or prosecute any alcohol or drug abuse patient.[facility] the event this information is protected by the Federal Confidentiality of Alcohol and Drug Abuse Patient Records regulations: The Federal rules restrict any use of the information to criminally investigate or prosecute any alcohol or drug abuse patient.[facility] the event this information is protected by the Federal Confidentiality of Alcohol and Drug Abuse Patient Records regulations: The Federal rules restrict any use of the information to criminally investigate or prosecute any alcohol or drug abuse patient.[facility] the event this information is protected by the Federal Confidentiality of Alcohol and Drug Abuse Patient Records regulations: The Federal rules restrict any use of the information to criminally investigate or prosecute any alcohol or drug abuse patient.[facility] the event this information is protected by the Federal Confidentiality of Alcohol and Drug Abuse Patient Records regulations: The Federal rules restrict any use of the information to criminally investigate or prosecute any alcohol or drug abuse patient.[facility] the event this information is protected by the Federal Confidentiality of Alcohol and Drug Abuse Patient Records regulations: The Federal rules restrict any use of the information to criminally investigate or prosecute any alcohol or drug abuse patient.[facility] the event this information is protected by the Federal Confidentiality of Alcohol and Drug Abuse Patient Records regulations: The Federal rules restrict any use of the information to criminally investigate or prosecute any alcohol or drug abuse patient.[facility] the event this information is protected by the Federal Confidentiality of Alcohol and Drug Abuse Patient Records regulations: The Federal rules restrict any use of the information to criminally investigate or prosecute any alcohol or drug abuse patient.[facility] the event this information is protected by the Federal Confidentiality of Alcohol and Drug Abuse Patient Records regulations: The Federal rules restrict any use of the information to criminally investigate or prosecute any alcohol or drug abuse patient.[facility] the event this information is protected by the Federal Confidentiality of Alcohol and Drug Abuse Patient Records regulations: The Federal rules restrict any use of the information to criminally investigate or prosecute any alcohol or drug abuse patient.[facility] Reason for Visit (unrecogniz ed section and content) Specialty Diagnoses / Procedures Referred By Curtis t Referred To Contact Internal Medicine / RHEUMATOLOGY Diagnoses 3 months jaspal virtual to discuss BMD results 1 year in office Procedures OFFICE/OUTPATIENT ESTABLISHED MOD MDM 30-39 MIN VIDEO SPEC EST Enma Troncoso MD [address] [place] [address] Enma Troncoso MD [address] [place] [address] Referral ID Status Reason Start Date Expiration Date V isits Requested Visits Authorized [id number] Closed Clearance Not Met -Financial Clearance Bypassed 10/08/2022 01/06/2023 1 0 Reason Comments Joint Pain Positive LYUDMILA New Patient Reason Comments Medication Follow-up Reason Comments PENDING Humira PENDING with [facility]/cover my meds/cigna Reason Comments Patient Question Humira, Penicillin Reason Comments Patient Question Reason Comments Appointment Reason Comments Refill Request Specialty Diagnoses / Procedures Referred By Curtis mcbride Referred To Contact Internal Medicine / RHEUMATOLOGY Diagnoses 3-4 weeks virtual Next available in office Procedures VIDEO SPEC EST Enma Troncoso MD [address] [place] [address] Enma Troncoso MD [address] [place] [address] Referral ID Status Reason Start Date Expiration Date V isits Requested Visits Authorized [id number] New Request 11/06/2022 02/04/2023 1 0 Reason Comments Follow Up MEDICATION Reason Comments 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 - Other Reason Comments APPROVED Wade APPROVED PA-B [id number] 01.22.23-07.24.23 [facility] COVER MY MEDS Reason Onset Date Comments Refill Request 01/22/2023 Medication Tammi fication Reason Comments Established Patient Care Teams (unrecognized sec tion and content) Professor Of 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 Relationship Specialty Start Date End Date Chelsea Gutiérrez, [address] [place] [address] PCP - General Family Practice 02/01/22 Professor Of 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 Relationship Specialty Start Date End Date Chelsea Gutiérrez DO [address] [place] [address] PCP - General Family Practice 02/01/22 Professor Of 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 Relationship Specialty Start Date End Date Chelsea Gutiérrez DO [address] [place] [address] PCP - General Family Practice 02/01/22 Professor Of 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 Relationship Specialty Start Date End Date Chelsea Gutiérrez DO PCP - General Family Medicine 02/01/22 Professor Of 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 Relationship Specialty Start Date End Date Chelsea Gutiérrez DO PCP - General Family Medicine 02/01/22 Professor Of 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 Relationship Specialty Start Date End Date Chelsea Gutiérrez DO PCP - General Family Medicine 02/01/22 Professor Of 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 Relationship Specialty Start Date End Date Chelsea Gutiérrez DO PCP - General Family Medicine 02/01/22 Professor Of 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 Relationship Specialty Start Date End Date Chelsea Gutiérrez DO PCP - General Family Medicine 02/01/22 Professor Of 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 Relationship Specialty Start Date End Date Chelsea Gutiérrez DO PCP - General Family Medicine 02/01/22 Professor Of 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 Relationship Specialty Start Date End Date Chelsea Gutiérrez DO PCP - General Family Medicine 02/01/22 Professor Of 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 Relationship Specialty Start Date End Date Chelsea Gutiérrez DO PCP - General Family Medicine 02/01/22 Professor Of 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 Relationship Specialty Start Date End Date Chelsea Gutiérrez DO PCP - General Family Medicine 02/01/22 Professor Of 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 Relationship Specialty Start Date End Date Chelsea Gutiérrez DO PCP - General Family Medicine 02/01/22 Professor Of 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 Relationship Specialty Start Date End Date Chelsea Gutiérrez DO PCP - General Family Medicine 02/01/22 Professor Of 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 Relationship Specialty Start Date End Date Chelsea Gutiérrez DO PCP - General Family Medicine 02/01/22 Professor Of 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 Relationship Specialty Start Date End Date Chelsea Gutiérrez DO PCP - General Family Medicine 02/01/22 INFORMATION SOURCE (unrecogn ized section and content) DATE CREATED AUTHOR AUTHOR'S ORGANIZ ATION 05/23/2023 [facility] DATE CREATED AUTHOR AUTHOR'S ORGANIZ ATION 09/20/2023 [facility] FOR RECORDS PERTAINING TO PATIENTS WHO ARE OR HAVE BEEN ENROLLED IN A CHEMICAL DEPENDENCY/SUBSTANCEABUSE PROGRAM, SOME INFORMATION MAY BE OMITTED. This clinical summary was aggregated from multiple sources. Caution should be exercised in using it in the provision of clinical care. This summary normalizes information from multiple sources, and as a consequence, information in this document may materially change the coding, format and clinical context of patient data. In addition, data may be omitted in some cases. CLINICAL DECISIONS SHOULD BE BASED ON THE PRIMARY CLINICAL RECORDS. [employer] provides no warranty or guarantee of the accuracy or completeness of information in this document.
== END | disposition home or self-care (01) ==
LOC: LABSPEC 16:45
PROVIDERS: PCP Family Medicine; Referring Provider Obstetrics & Gynecology; Visit Provider Obstetrics & Gynecology
DX: T81.49XA Infection following a procedure, other surgical site, initial encounter (principal)
CPT/HCPCS: 87070; 87075; 87077; 87186; 87205

== ENCOUNTER → 2024-02-26 | Outpatient (CLI) | payer OTHER, SELFPAY ==
[2024-02-26 08:43] LABS: CRP 4.96 mg/L (0.0-3.0)
[2024-02-26 08:59] LABS: Erythrocyte Sedimentation Rate 16 mm/hr (0-30)
--- NOTE | 2024-02-26 14:31 | BI_ITS ---
MAMMOGRAPHY - BILATERAL DIAGNOSTIC REASON FOR EXAM: Female, 33 years old. Fullness in the upper right lateral aspect of the breast. PERTINENT HISTORY: Non-contributory. TECHNIQUE: Digital bilateral breast angel (3D mammographic acquisition) in the CC and MLO projections. 2-D mediolateral oblique (MLO) and craniocaudad (CC) views of both breasts were obtained. CAD: Full Field Digital Mammography with Computer Added Detection was performed. COMPARISON: None. Baseline examination. FINDINGS: Breast Composition: The breasts are extremely dense, which lowers the sensitivity of mammography. There are no dominant masses or suspicious calcifications. No other significant abnormalities are identified. BI/DIAG MAMM W/CAD, BILAT IMPRESSION: Negative diagnostic mammogram. With the patient''s history of fullness in the upper outer quadrant of the right breast, correlation with ultrasound is recommended. ASSESSMENT CATEGORY: BIRADS Category 0: Incomplete. Need additional imaging evaluation. A letter regarding these results will be sent to the patient by the facility within 30 days. Approximately 10% of breast cancers are not detected by mammography. A normal mammogram should not delay biopsy of a clinically suspicious abnormality. Electronically Signed: Ted Bloom MD at 15:14 EDT ,
--- NOTE | 2024-02-26 14:31 | US_ITS ---
STUDY: ULTRASOUND BREAST - RIGHT REASON FOR EXAM: Female, 33 years old. Fullness in the superior aspect of the right breast. TECHNIQUE: Axial and longitudinal images of the RIGHT breast were performed with a high resolution ultrasound transducer. # OF IMAGES: 28 COMPARISON: Comparison is made with prior mammogram done earlier today. FINDINGS: RIGHT Breast: The upper half of the right breast was examined with ultrasound. There is dense fibroglandular tissue. No sonographic abnormality is seen. US/Breast Limited Unilateral IMPRESSION: No sonographic abnormality is seen. ASSESSMENT CATEGORY: BIRADS Category 1: Negative. A letter regarding these results will be sent to the patient by the facility within 30 days. Electronically Signed: Ted Bloom MD at 8:42 EDT ,
== END | disposition home or self-care (01) ==
LOC: OPBI 14:27
PROVIDERS: PCP Family Medicine; Referring Provider Family Medicine; Visit Provider Family Medicine
DX: M25.50 Pain in unspecified joint (principal); M35.1 Other overlap syndromes; N63.11 Unspecified lump in the right breast, upper outer quadrant
CPT/HCPCS: 76642; 77062; 77066; 85652; 86140; G0279

== ENCOUNTER → 2024-04-30 | Outpatient (CLI) | payer OTHER, SELFPAY ==
--- NOTE | 2024-04-30 07:45 | RAD_ITS ---
EXAM: XR SACRUM AND COCCYX, 2 OR MORE VIEWS CLINICAL INDICATION: Ankylosing spondylitis of multiple sites in spine TECHNIQUE: Frontal and oblique views of the sacroiliac joints. COMPARISON: CT abdomen and pelvis 04/02/2019 FINDINGS: SACRUM/COCCYX: Unremarkable. No displaced fracture. No destructive or sclerotic lesions. Note that overlapping bowel shadows may however obscure fine detail in the frontal view. Sacroiliac joints are unremarkable. SOFT TISSUES: Unremarkable. No soft tissue swelling or gas. RAD/S-I Jts 3 or More Views IMPRESSION: Unremarkable evaluation of the sacroiliac joints. Electronically Signed: Juan Jose Vieira MD at 7:52 EDT ,
--- NOTE | 2024-04-30 07:45 | RAD_ITS ---
INDICATION: Ankylosing spondylitis of multiple sites in spine EXAMINATION/TECHNIQUE: X-RAY - XR Hips Bilateral with Pelvis when performed; Min 5 Views COMPARISON: FINDINGS: PELVIC BONES: No displaced fracture, destructive or sclerotic lesions. Note that overlapping bowel shadows may however obscure fine detail. Sacroiliac joints are unremarkable. No widening of the pubic symphysis. HIPS: The articular structures are unremarkable. No displaced fracture seen in this frontal view. SOFT TISSUES: No soft tissue swelling or gas. RAD/Hips B/L min 2 views w/ Pelvis IMPRESSION: No evidence of displaced pelvic or hip fracture. Electronically Signed: Shahriar Mcadams DO at 23:48 EDT Reading Location ID and State: [facility] / [place] Tel [phone], Service support ,
== END | disposition home or self-care (01) ==
LOC: RAD 07:38
PROVIDERS: PCP Family Medicine
DX: M45.0 Ankylosing spondylitis of multiple sites in spine (principal); M54.00 Panniculitis affecting regions of neck and back, site unspecified
CPT/HCPCS: 72202; 73521

== ENCOUNTER 2024-05-05 16:00 | Outpatient (RCR) | payer OTHER, SELFPAY ==
--- NOTE | 2024-04-13 11:41 | HP.PTEVAL_ITS ---
Patient's Visit Information Visit Information Visit Information: SAVI SHELL is a 33 year old F referred to Physical Therapy by Dr. Enma Clarke MD with a diagnosis of low back pain. Date of Evaluation: 04/07/24 Physical Therapist: Librado Segovia DPT Visit Plan Frequency: 2x /Week Duration: 4 Weeks Plan: Pt. to be seen x1 per week in pool and x1 per week on land. In pool work on hip and core strengthening, add in lumbar spine flexibility as well. On land focus on neutral spine core strengthening, Start in hooklying and progress to quadruped as tolerated. Subjective Subjective: Pt. is here today for her initial evaluation with diagnosis neck and low back pain with need for aquatic therapy. Pt. reports having chronic low back pain with a diagnosis of ankylosing spondylitis. Pt. denies N/T in either LE. Pt. reports increased pain with prolonged sitting and standing. Pt. recently had a baby as well. Pt. no major issues with sitting at work, but is able to frequently change positions. Pt. has not done much exercise due to fear of making her back worse. She does have 2 kids and has increased pain with picking them up. Pt. is hopeful to reduce symptoms in order to get back to all recreational activities and be able to complete all ADLs and play with her children without increase in symptoms. Pain Lumbar spine: Pain Intensity (Out of 10): 4 Pain Intensity Range: 2 and 6 Objective Objective: POSTURE: Pt. has overall slouched pattern in sitting, but is able to correct with VC/TCing. Falls back into poor posture with in a few minutes, due to reported fatigue. PALPATION: Pt. has tenderness throughout lumbar erector spinae. She has some hypomobility noted with spring testing of her lumbar spine, but no intense pain noted. NEURO: normal sensation, normal DTR of BLEs. Pt. is able to rise on heels and toes without issues. ROM: LUMBAR SPINE: flexion min loss increase NW, ext mod loss more intense symptoms, SB min loss bilat mild increase NW, rotation min loss bilat increase NW. Pt. has some tightness in her B HS, but not severe. MMT: Pt. has fairly normal strength throughout BLEs 5/5 throughout, except 4/5, B hip abd and 4+/5 B hip extension. Trunk flexion poor+, ext poor+. Pt. has difficulty with TA contraction as well. GAIT: normal without AD. Balance/Special Test Scores Oswestry Low Back Score: 12 Goals Goal 1:: LTG: PT. to be I with HEP. Goal Time Frame: 4-6 Weeks Goal 2:: LTG: Pt. to have increased core and hip strength to 5-/5 throughout. Goal Time Frame: 4-6 Weeks Goal 3:: LTG: pt. to complete all work activities without increase in low back pain. Goal Time Frame: 4-6 Weeks Goal 4:: LTG: Pt. be able to lift children without increase in symptoms of her lumbar spine. Goal Time Frame: 4-6 Weeks Rehabilitation Potential Physical Therapy Diagnosis: Pt. has signs and symptoms consistent with low back pain, with diagnosis of ankylosing spondylitis. Pt. has marked hypomobility of her lumbar spine and marked core weakness. Pt. would benefit from PT to address the above limitations progressing back to all work and recreational activities without limitations. Rehabilitation Potential: Good Anticipated Interventions Patient/Client Instruction: Educate patient on: Condition, Plan of Care, Risk Factors and Benefits of Fitness Program For the Purpose of:: To facilitate caregiver knowledge, To improve self management, To prevent re-injury, To improve ability to perform tasks related to life management and To improve tolerance to ADL's Therapeutic Exercise to Include: Strength training, Power training, Endurance training, Balance training, Flexibilty training, In an aquatic setting, Passive ROM, Active ROM and Dynamic Lumbar Stabilization For the Purpose of:: To decrease pain, To increase ROM, To improve nutrient delivery to tissue, To increase oxygenation perfusion, To improve muscle performance and motor function, To improve ability to perform ADL's, To increase tolerance to activity/condition/position, To improve health of tissue, To decrease soft tissue restriction and To increase flexibility/ROM Text: Thank you for the opportunity to evaluate your patient. For Medicare and Medicare HMO plans, please review the plan of care and approve it. It will need to be FAXED BACK to us at [phone] for Medicare purposes. For Medicare only, by signing this I certify the plan of care. Please let me know if there are questions or concerns regarding this plan of care. Physician Signatu re: Date:
--- NOTE | 2024-05-05 16:28 | HP.PTREVAL ---
Re-Evaluation Intro: Dr. Enma Clarke MD, It has been my pleasure to treat SAVI SHELL over the last 8 visits for low back pain. Please see the progress note below for an update on the physical therapy plan of care! Subjective Subjective: Pt. reports having some relief with both land and pool. Pt. tolerates work, but does have some pain still. Pt reports being ~70% better overall. Objective Objective/Function: LUMBAR ROM: flexion nil loss NE, SB min loss bilat NE, rotation min loss NE, Core strength: poor+. Hip strength: flexion R: 21.4#, L: 22.4#. Pt. has some slight tenderness at L hip flexors. Mild discomfort with end range FADDIR. Pt. ambulates well, slight lack of hip extension. Stairs: normal. Overall at this point in time patient desires to continue with PT exercises on her own. I will leave the case open for 3-4 weeks. Plan Plan Plan: Pt. to complete exercises on her own at this point in time and follow up in 3-4 weeks with PT if needed. Balance/Gait/Functional tests Balance/Special Test Scores Oswestry Low Back Score: 12 Goals Goals Goal 1:: LTG: PT. to be I with HEP. Goal Time Frame: 4-6 Weeks Goal 2:: LTG: Pt. to have increased core and hip strength to 5-/5 throughout. Goal Time Frame: 4-6 Weeks Goal 3:: LTG: pt. to complete all work activities without increase in low back pain. Goal Time Frame: 4-6 Weeks Goal Progress: Progressing Goal 4:: LTG: Pt. be able to lift children without increase in symptoms of her lumbar spine. Goal Time Frame: 4-6 Weeks Goal Progress: Progressing Anticipated Interventions Anticipated Interventions Patient/Client Instruction: Educate patient on: Condition, Plan of Care, Risk Factors and Benefits of Fitness Program For the Purpose of:: To facilitate caregiver knowledge, To improve self management, To prevent re-injury, To improve ability to perform tasks related to life management and To improve tolerance to ADL's Therapeutic Exercise to Include: Strength training, Power training, Endurance training, Balance training, Flexibilty training, In an aquatic setting, Passive ROM, Active ROM and Dynamic Lumbar Stabilization For the Purpose of:: To decrease pain, To increase ROM, To improve nutrient delivery to tissue, To increase oxygenation perfusion, To improve muscle performance and motor function, To improve ability to perform ADL's, To increase tolerance to activity/condition/position, To improve health of tissue, To decrease soft tissue restriction and To increase flexibility/ROM Re-Evaluation Ending Re-evaluation ending: Please do not hesitate to contact me at [phone] by phone or if you have questions or concerns regarding this new plan of care! Sincerely, KIM GallardoT
== END 2024-05-05 19:00 | disposition home or self-care (01) ==
LOC: PT 16:00
PROVIDERS: PCP Family Medicine; Referring Provider Internal Medicine; Visit Provider Internal Medicine
DX: M54.2 Cervicalgia (principal); M54.50 Low back pain, unspecified
CPT/HCPCS: 97110; 97113; 97161; 97530

== ENCOUNTER → 2024-07-22 | Outpatient (CLI) | payer OTHER, SELFPAY ==
[2024-07-22 16:52] LABS: AST(SGOT) 12 U/L (15-37); Alanine Aminotransfer ALT/SGPT 15 U/L (13-56); Albumin, Serum 3.8 g/dL (3.2-5.0); Alkaline Phosphatase 86 U/L (45-117); Anion Gap 5 (5-15); BUN 9 mg/dL (7-18); BUN/Creat Ratio 13.7 RATIO (10-20); CRP < 2.90 mg/L (0.0-3.0); Calcium,Total 9.1 mg/dL (8.5-10.1); Chloride 106 mmol/L (98-107); Creatinine, Serum 0.66 mg/dL (0.55-1.02); EST Glomerular Filtration Rate 108 mL/min (>60); Est Glom Filt Rate - Afr Amer 131 mL/min (>60); Glucose 92 mg/dL (74-106); Potassium 3.8 mmol/L (3.5-5.1); Protein, Total 7.8 g/dL (6.4-8.2); Sodium Level 136 mmol/L (136-145)
[2024-07-22 17:05] LABS: Absolute Lymphocyte Count 1.77 X10^3/uL (0.83-4.51); Absolute Neutrophil Count 4.3 X10^3/uL (2.0-7.7); Basophil# 0.02 X10^3/uL; Basophil% 0.3 % (0-1); Eosinophil# 0.08 X10^3/uL; Eosinophils% 1.2 % (0-5); Hematocrit 38.1 % (37-47); Hemoglobin 11.3 g/dL (12.0-15.0); Lymphocyte # 1.77 X10^3/ul (0.83-4.51); Lymphocyte % 27.2 % (19-41); Mean Corp Hgb Conc 29.7 g/dL (32-36); Mean Corpuscular Hgb 25.1 pg (27.0-32.0); Mean Corpuscular Volume 84.5 fL (81-99); Mean Platelet Vol. 11.2 fl (6.2-12.0); Monocyte# 0.36 X10^3/uL; Monocyte% 5.5 % (0-10); NRBC Flagged by Analyzer 0 % (0-5); Neutrophil # 4.26 X10^3/uL (2.7-7.7); Neutrophil % 65.6 % (47-70); Platelet Count 303 K/mm3 (150-450); RBC Distribution Width CV 13.4 % (11.6-14.6); RBC Distribution Width SD 41.5 fl (35.1-43.9); Red Blood Count 4.51 M/mm3 (4.2-5.4); White Blood Count 6.5 K/mm3 (4.4-11.0)
[2024-07-22 17:06] LABS: Erythrocyte Sedimentation Rate 26 mm/hr (0-30)
[2024-07-24 22:06] LABS: QNTFERON TB Mitogen Value > 10.00 IU/mL (.); QNTFERON TB Nil Value 0.01 IU/mL (.); QNTFERON TB1+ Ag Value 0.02 IU/mL (.); QNTFERON TB2+ Ag Value 0.02 IU/mL (.); QNTIFERON TB Positive Criteria Negative (Negative)
== END | disposition home or self-care (01) ==
LOC: PAVLAB 16:06
PROVIDERS: PCP Family Medicine; Referring Provider Internal Medicine; Visit Provider Internal Medicine
DX: M45.0 Ankylosing spondylitis of multiple sites in spine (principal)
CPT/HCPCS: 36415; 80053; 85025; 85652; 86140; 86480

== ENCOUNTER → 2024-10-21 | Outpatient (CLI) | payer OTHER, SELFPAY ==
--- NOTE | 2024-10-21 08:57 | BI_ITS ---
MAMMOGRAPHY - BILATERAL DIAGNOSTIC REASON FOR EXAM: Female, 34 years old. Bilateral subareolar palpable lumps. PERTINENT HISTORY: Non-contributory. TECHNIQUE: Digital bilateral breast angel (3D mammographic acquisition) in the CC and MLO projections. 2-D mediolateral oblique (MLO) and craniocaudad (CC) views of both breasts were obtained. CAD: Full Field Digital Mammography with Computer Added Detection was performed. COMPARISON: Comparison is made with prior study dated February 26, 2024. FINDINGS: Breast Composition: The breasts are extremely dense, which lowers the sensitivity of mammography. There are no dominant masses or suspicious calcifications. No other significant abnormalities are identified. There has been no significant change since the prior study. BI/DIAG MAMM W/CAD, BILAT IMPRESSION: Stable bilateral diagnostic mammogram. With the patient''s history of a subareolar palpable lumps, correlation with ultrasound is recommended. ASSESSMENT CATEGORY: BIRADS Category 0: Incomplete. Need additional imaging evaluation. A letter regarding these results will be sent to the patient by the facility within 30 days. Approximately 10% of breast cancers are not detected by mammography. A normal mammogram should not delay biopsy of a clinically suspicious abnormality. Electronically Signed: Ted Bloom MD at 10:03 EST ,
--- NOTE | 2024-10-21 08:57 | US_ITS ---
STUDY: ULTRASOUND BREAST - RIGHT REASON FOR EXAM: Female, 34 years old. Bilateral breast lumps. TECHNIQUE: Axial and longitudinal images of the RIGHT breast were performed with a high resolution ultrasound transducer. # OF IMAGES: 41 COMPARISON: Comparison is made with prior mammogram done earlier today. FINDINGS: RIGHT Breast: The retroareolar region of the right breast was examined with ultrasound. There is a 4 mm x 3 mm x 2 mm hypoechoic nodule in the retroareolar region. This is not a typical cyst. Biopsy recommended. IMPRESSION: 4 mm x 3 mm x 2 mm hypoechoic nodule in the retroareolar region of the right breast as described. Biopsy recommended. ASSESSMENT CATEGORY: BIRADS Category 4: Suspicious - Biopsy Should Be Considered. A letter regarding these results will be sent to the patient by the facility within 30 days. Electronically Signed: Ted Bloom MD at 13:37 EST Reading Location ID and State: [facility] , Service support , STUDY: ULTRASOUND BREAST - LEFT REASON FOR EXAM: Female, 34 years old. Palpable retroareolar nodule. TECHNIQUE: Axial and longitudinal images of the LEFT breast were performed with a high resolution ultrasound transducer. # OF IMAGES: 41 COMPARISON: Comparison is made with prior mammogram done earlier in the day. FINDINGS: LEFT Breast: The palpable lump corresponds to a 4 mm x 3 mm x 3 mm slightly irregular hypoechoic nodule. Biopsy recommended. US/Breast Limited Unilateral IMPRESSION: The palpable lump corresponds with 4 mm x 3 mm x 3 mm slightly irregular hypoechoic nodule. Biopsy is recommended. ASSESSMENT CATEGORY: BIRADS Category 4: Suspicious - Biopsy Should Be Considered. A letter regarding these results will be sent to the patient by the facility within 30 days. Electronically Signed: Ted Bloom MD at 13:38 EST ,
== END | disposition home or self-care (01) ==
LOC: OPBI 08:56
PROVIDERS: PCP Family Medicine; Referring Provider Nurse Practitioner Women's Health; Visit Provider Nurse Practitioner Women's Health
DX: N63.41 Unspecified lump in right breast, subareolar (principal); N63.42 Unspecified lump in left breast, subareolar
CPT/HCPCS: 76642; 77062; 77066; G0279

== ENCOUNTER 2024-10-27 07:35 | Outpatient (CLI) | payer OTHER, SELFPAY ==
--- NOTE | 2024-10-27 08:02 | US_ITS ---
EXAM: US BREAST BX EA ADD LESION CLINICAL HISTORY: Ultrasound-guided right breast biopsy. COMPARISON: Comparison is made with prior ultrasound dated October 21, 2024. TECHNIQUE: Under direct sonographic guidance, the surgeon performed 6 core biopsies of the 4 mm x 4 mm x 2 mm hy poechoic irregular nodule in the retroareolar region of the breast. FINDINGS: Successful ultrasound-guided biopsy of the 4 mm x 4 mm x 2 mm hypoechoic irregular nodule in the retr oareolar region of the right breast. US/US Breast Bx EA Add Lesion IMPRESSION: Successful ultrasound-guided breast biopsy as described. Reading Location: [facility]
--- NOTE | 2024-10-27 08:02 | US_ITS ---
EXAM: US BREAST BIOPSY 1ST LESION CLINICAL HISTORY: Abnormal left mammogram. COMPARISON: Comparison is made with prior sonogram dated October 21, 2024. TECHNIQUE: Under direct sonographic guidance, the surgeon performed core biopsies of the 5 mm x 4 mm x 4 mm retr oareolar nodular density. FINDINGS: Ultrasound-guided biopsy of a 5 mm x 4 mm x 4 mm retroareolar nodule in the left retroareolar region. US/US Breast Biopsy 1st Lesion IMPRESSION: Successful ultrasound-guided biopsy of a 5 mm x 4 mm x 4 mm retroareolar nodule in the left retroareolar region. Reading [facility]
--- NOTE | 2024-10-27 09:00 | BRBX_PTH ---
PATIENT: SAVI SHELL LOC: [facility] U#:[id number] AGE/SX: 34/F ROOM: RE10/27/[address]: Dr. Laly Newton MD : 1990 BED: DIS: 10/27/2024 SPEC #: [id number] RECD: 10/27/24 09:25 STATUS: MIKE REJose #: [id number] LESA: 10/27/24 09:[address]: Laly Newton DEPT: SURGICAL PATHOLOGY RECD BY: Hossein Sheppard ENTERED: 10/27/24 09:38 SP TYPE: BREAST BX OTHR DR: Dr. Chelsea Gutiérrez DO Tissues: A - Right breast, NOS B - Left breast, NOS Procedures: Surgery Specimen Level IV HEADER OPERATION: Right breast biopsy PRE-OP DIAGNOSIS: Right breast lesion TISSUE SUBMITTED: A- Right breast mass retroareolar at 4o'clock, B- Left breast mass retroareolar at 10o'clock Ischemic Time: 1 minute Fixation Time: 11 hours MICROSCOPIC DIAGNOSIS A. Right breast mass, retroareolar at 4o'clock, core biopsy: A fragment of fibroadipose tissue, no pathologic diagnosis. See comment. B. Left breast mass, retroareolar at 10o'clock, core biopsy: Focal fibrocystic changes and mild intraductal hyperplasia without atypia. Negative for malignancy. See comment. 10/28/2024 COMMENT A. Breast tissue is not identified in the specimen. Correlation with clinical, radiologic findings and appropriate follow up are necessary. MICROSCOPIC DESCRIPTION Slides are reviewed. GROSS DESCRIPTION A. Received in fixative is one container labeled with the patient's name and designated Right breast. The specimen consists of one irregular fragment of august-yellow fibroadipose tissue that measures 1.2 x 0.1 x 0.1 cm. The specimen is totally submitted in one cassette. B. Received in fixative is one container labeled with the patient's name and designated Left breast. The specimen consists of multiple elongated fragments of august-yellow fibroadipose tissue that in aggregate measure 1.5 x 1 x 0.1 cm. The specimen is totally submitted in one cassette. SJ 10/27/2024 TC:5 CPT:93383s3
--- NOTE | 2024-10-27 09:32 | PCM.OPRPT ---
Operative Report (Standard) Operative Information Date of Procedure: 10/27/24 Pre-Operative Diagnosis: Bilateral breast mass retroareolar Post-Operative Diagnosis: Same Surgery/Procedure Performed: Ultrasound-guided bilateral breast biopsy integrated marketing specialist: No Type of Anesthesia: Local Procedure Start Time: 08:30 Procedure Stop Time: 09:00 Select all DRAINS/GRAFTS/IMPLANTS that apply: Prosthetic device Prosthetic device details: Bard dual ultraclip ribbon, coil Estimated Blood Loss: < 10cc Specimen collected: Yes Description of specimen(s) removed: Right breast mass retroareolar at 4:00, left breast mass retroareolar at 10:00 Description of surgery: Procedure: Bilateral ultrasound-guided core biopsy Indications: 34 year-old female with hypoechoic nodules retroareolar bilateral breast, right about 4:00, left about 10:00. Risk benefits were discussed the patient and she elected to proceed with ultrasound guided core biopsy with clip placement Description of procedure: Patient was brought into the ultrasound room in the bilateral breast was marked. Both procedures were done similarly. A timeout was completed verifying correct patient, procedure, site, specially, prior to beginning procedure. The bilateral breast was prepped and draped in usual sterile fashion and using local anesthesia was obtained with 1% lidocaine with epi. The lesion was located with the ultrasound. Small incision was made with 11 blade to introduced the mammotome through the skin. Under ultrasound guidance multiple core samples were obtained using then 13-gauge mammotome and sent in formalin for pathology. The BARD dual ultra-(coil clip in the left, ribbon clip in the right) clip was then deployed into the biopsy cavity under ultrasound guidance and a picture was taken. Upon completion procedure hemostasis was obtained and a Steri-Strip and OpSite were placed. Patient was then taken to the mammography suite for clip verification. The clips were verified. The patient tolerated the procedure well and was discharged from the breast imaging department good condition. Surgical Findings: See operative report Complications Complications: No
== END 2024-10-27 23:59 | disposition home or self-care (01) ==
LOC: OPUS 08:01
PROVIDERS: PCP Family Medicine; Referring Provider Surgery; Visit Provider Surgery
DX: N60.21 Fibroadenosis of right breast (principal); N60.12 Diffuse cystic mastopathy of left breast; N60.82 Other benign mammary dysplasias of left breast
CPT/HCPCS: 19083; 19084; 88305

== ENCOUNTER → 2024-11-11 | Outpatient (CLI) | payer OTHER, SELFPAY ==
--- NOTE | 2024-11-11 08:00 | US_ITS ---
EXAM: BREAST LIMITED UNILATERAL CLINICAL HISTORY: Follow-up for right breast biopsy. COMPARISON: Comparison is made with prior study dated October 27, 2024. TECHNIQUE: Imaging of the periareolar region of the right breast was performed. FINDINGS: Stable 5 mm x 4 mm x 2 mm hypoechoic nodule at the 4 o'clock position of the breast. A biopsy clip is seen within the. US/Breast Limited Unilateral IMPRESSION: Status post targeted right breast ultrasound. Tissue clip marker seen within t he nodule. BI-RADS: Category 2. Reading Location: [place] [address]
== END | disposition home or self-care (01) ==
LOC: OPUS 07:59
PROVIDERS: PCP Family Medicine; Referring Provider Surgery; Visit Provider Surgery
DX: R92.8 Other abnormal and inconclusive findings on diagnostic imaging of breast (principal); N63.10 Unspecified lump in the right breast, unspecified quadrant; N63.20 Unspecified lump in the left breast, unspecified quadrant
CPT/HCPCS: 76642

== ENCOUNTER → 2024-11-17 | Outpatient (CLI) | payer OTHER, SELFPAY ==
--- NOTE | 2024-11-17 | IMM_PTH ---
PATIENT: SAVI SHELL LOC: [facility] U#:[id number] AGE/SX: 34/F ROOM: RE11/17/[address]: Dr. Laly Newton MD : 1990 BED: DIS: 11/17/2024 SPEC #: [id number] RECD: 11/18/24 13:17 STATUS: [facility] REQ #: [id number] LESA: 11/17/24 00:[address]: Laly Newton DEPT: IMMUNOHISTOCHEMISTRY RECD BY: Maxi Hurtado ENTERED: 11/18/24 13:17 SP TYPE: IMMUNO OTHR DR: Dr. Chelsea Gutiérrez DO Tissues: Right breast, NOS Procedures: E-CAD (initial) CALPONIN-1 (add) CK8 (add) Pankeratin (add) P40 (add) PHYSICIAN & INSTITUTION [place] [id number] SPECIMEN INFORMATION: Tissue Source: Right breast retroareolar Clinical Info: Right breast mass Specimen Number: [id number] CPT code: 49712,52964x8 METHODOLOGY: Deparaffinized sections of prefer/formalin-fixed tissue or PAP/DQ stained slides are incubated with monoclonal/polyclonal antibodies/oligonucleotide probes. Localization is made via biotin free immunoperoxidase method. Appropriate controls are performed and reacted as expected. Results on target cell population are indicated in the following table: RESULTS: ANTIBODY / CLONE RESULT E-Cad (ECH-6) positive AE1-3 (AE1/AE3/PCK26) positive CK8 (25ykypA47) positive Calponin-1 (YT759Q) positive P40 (BC28) positive These tests were developed and their performance characteristics determined by [facility]. They may not have been cleared or approved by the U.S. Food and Drug Administration. The FDA has determined that such clearance or approval is not necessary. The above immunohistochemical/dualISH markers are ordered and reviewed by the Pathologist. INTERPRETATION: Right breast, 4o'clock, retroareolar biopsy: Focal minimal intraductal hyperplasia without atypia. 11/19/2024
--- NOTE | 2024-11-17 08:05 | US_ITS ---
PROCEDURE: US BREAST BIOPSY 1ST LESION REASON FOR EXAM: Biopsy of the hypoechoic nodule in the retroareolar region of the right breast. COMPARISON: Comparison is made with prior mammogram an ultrasound dated November 11, 2024. TECHNIQUE: Under direct sonographic guidance, 3 core biopsies of the 5 mm x 4 mm x 3 mm hypoechoic nodule in the retroareolar region was performed by the surgeon. FINDINGS: Ultrasound-guided core biopsy of the retroareolar nodule. US/US Breast Biopsy 1st Lesion IMPRESSION: Ultrasound-guided breast biopsy of the retroareolar nodule. Reading Location: [facility]
--- NOTE | 2024-11-17 09:00 | BRBX_PTH ---
PATIENT: SAVI SHELL LOC: [facility] U#:[id number] AGE/SX: 34/F ROOM: RE11/17/[address]: Dr. Laly Newton MD : [id number] BED: DIS: 11/17/2024 SPEC #: [id number] RECD: 11/17/24 09:39 STATUS: MIKE REJose #: [id number] LESA: 11/17/24 09:[address]: Laly Newton DEPT: SURGICAL PATHOLOGY RECD BY: Hossein Sheppard ENTERED: 11/17/24 10:08 SP TYPE: BREAST BX OTHR DR: Dr. Chelsea Gutiérrez, DO Tissues: Right breast, NOS Procedures: Surgery Specimen Level IV HEADER OPERATION: Right breast biopsy PRE-OP DIAGNOSIS: Right breast mass TISSUE SUBMITTED: Right breast retroareolar 4o'clock Ischemic Time: 2 minute Fixation Time: 12 hours MICROSCOPIC DIAGNOSIS Right breast, retroareolar, 4o'clock, core biopsy: Focal fibrocystic changes and minimal intraductal hyperplasia without atypia. Focal dense fibrosis. Negative for malignancy. See comment. 11/18/2024 COMMENT Immunohistochemistry ([id number]) supports the above diagnosis. The finding are suggestive of fibroadenomatous change. Correlation with clinical, radiologic findings and appropriate follow up are necessary. MICROSCOPIC DESCRIPTION Slides are reviewed. GROSS DESCRIPTION Received in fixative is one container labeled with the patient's name and designated Right breast. The specimen consists of multiple elongated fragments of august-yellow fibroadipose tissue that in aggregate measure 2 x 1 x 0.1 cm. The specimen is totally submitted in one cassette. 11/17/2024 TC:5 CPT:99659
--- NOTE | 2024-11-17 09:05 | PCM.OPRPT ---
Operative Report (Standard) Operative Information Date of Procedure: 11/17/24 Pre-Operative Diagnosis: Right breast mass 4:00 retroareolar Post-Operative Diagnosis: Same Surgery/Procedure Performed: Right breast ultrasound-guided biopsy white metal caster: No Type of Anesthesia: Local Procedure Start Time: 08:45 Procedure Stop Time: 08:55 Select all DRAINS/GRAFTS/IMPLANTS that apply: None (Previous clip from last biopsy in place) Estimated Blood Loss: < 10 cc Specimen collected: Yes Description of specimen(s) removed: Right breast mass 4:00 retroareolar Description of surgery: Procedure: repeat Right ultrasound-guided core biopsy Indications: 34 year-old female with hypoechoic nodule in the right breast at 4:00 retroareolar?previous biopsy did not show any breast tissue per pathology and repeat ultrasound did show the lesion. Risk benefits were discussed the patient and she elected to proceed with ultrasound guided core biopsy with clip placement Description of procedure: Patient was brought into the ultrasound room in the right breast was marked. A timeout was completed verifying correct patient, procedure, site, specially, prior to beginning procedure. The right breast was prepped and draped in usual sterile fashion and using local anesthesia was obtained with 1% lidocaine with epi. The lesion was located with the ultrasound. Small incision was made with 11 blade to introduced the mammotome through the skin. Under ultrasound guidance multiple core samples were obtained using then 13-gauge mammotome and sent in formalin for pathology. Previous placed Bard dual ultraclip still in place near the target area. Upon completion procedure hemostasis was obtained and a Steri-Strip and OpSite were placed. Patient was then taken to the mammography suite for clip verification. The previous ribbon clip was verified. The patient tolerated the procedure well and was discharged from the breast imaging department good condition. Surgical Findings: See operative report Complications Complications: No
== END | disposition home or self-care (01) ==
LOC: OPUS 08:04
PROVIDERS: PCP Family Medicine; Referring Provider Surgery; Visit Provider Surgery
DX: N60.11 Diffuse cystic mastopathy of right breast (principal); N62 Hypertrophy of breast
CPT/HCPCS: 19083; 88305; 88341; 88342

== ENCOUNTER → 2025-01-11 | Outpatient (CLI) | payer OTHER, SELFPAY | END | disposition home or self-care (01) | LOC: MTRAD 13:41 | PROVIDERS: PCP Family Medicine; Referring Provider Chiropractor; Visit Provider Chiropractor | DX: M99.01 Segmental and somatic dysfunction of cervical region (principal) | CPT/HCPCS: 72040 ==

== ENCOUNTER → 2025-04-26 | Outpatient (CLI) | payer OTHER, SELFPAY ==
--- NOTE | 2025-04-26 07:55 | US_ITS ---
PROCEDURE: BREAST LIMITED UNILATERAL 04/26/2025 REASON FOR EXAM: F, Age 34 y/o , 6 MONTH F/U Six-month follow-up for right retroareolar biopsy. COMPARISON: Prior sonogram dated November 11, 2024.. TECHNIQUE: BREAST LIMITED UNILATERAL FINDINGS: Stable 9 mm x 5 mm x 3 mm hypoechoic nodule at the 4 o'clock position of the breast at 1 cm from the nipple. US/Breast Limited Unilateral IMPRESSION: Stable examination. BI-RADS 2: BENIGN RECOMMENDATION: Routine annual follow-up in 1 Year Reading Location: [id number]
== END | disposition home or self-care (01) ==
LOC: OPUS 07:54
PROVIDERS: PCP Family Medicine; Referring Provider Surgery; Visit Provider Surgery
DX: N63.14 Unspecified lump in the right breast, lower inner quadrant (principal); R92.8 Other abnormal and inconclusive findings on diagnostic imaging of breast
CPT/HCPCS: 76642